=== PATIENT | male | born 1975 | race Caucasian/White ===

== ENCOUNTER 2023-10-03 06:47 | Inpatient (IN) | payer SELFPAY ==
[2023-10-03] VITALS (32 sets, daily range): BP systolic 102–185; BP diastolic 60–136; PULSE 77–138; RESP 12–51; TEMP 36.5–37.3; O2SAT 86–99; BMI 51.5; BMI 55.5
--- NOTE | 2023-10-03 07:07 | EKG12_ITS ---
Test Reason : SOB Blood Pressure : / mmHG Vent. Rate : 136 BPM Atrial Rate : 202 BPM P-R Int : 000 ms QRS Dur : 088 ms QT Int : 308 ms P-R-T Axes : 000 -06 050 degrees QTc Int : 463 ms AFIB Low voltage QRS Inferior infarct , age undetermined Cannot rule out Anterior infarct , age undetermined Abnormal ECG Confirmed by PHILOMENA RODRIGUEZ, LYNN ([id number]), deputy editor in chief ADE RAGLAND ([id number]) on 10/04/2023 8:18:46 AM Referred By: BUD Confirmed By:LYNN QUACH MD
[2023-10-03] MEDS: Albuterol 2.5 MG/3 ML VIAL.NEB. INHALATION (07:13)
[2023-10-03] MEDS: Ipratropium/Albuterol Sulfate 3 ML AMPUL.NEB INHALATION (07:13)
--- NOTE | 2023-10-03 07:25 | RAD_ITS ---
INDICATION: dyspnea EXAMINATION/TECHNIQUE: X-RAY - XR Chest 1 View AP portable. 7:20 AM COMPARISON: None. FINDINGS: LINES/DEVICES: None. LUNGS: Diffuse alveolar infiltrates throughout the lungs greater on the right. Small bilateral pleural effusions. No pneumothorax. MEDIASTINUM: Unremarkable. CARDIAC SILHOUETTE: Enlarged. BONES AND SOFT TISSUES: No acute abnormalities. RAD/Chest 1 View (Portable) IMPRESSION: Bilateral airspace disease and small pleural effusions, pulmonary edema versus pneumonia. Electronically Signed: Davida Mac MD at 7:54 EDT ,
--- NOTE | 2023-10-03 07:28 | ED.VIS.DYS ---
HPI History of Present Illness Chief Complaint: Shortness of Breath Informant: patient and EMS Narrative Narrative: 48-year-old male presenting to the emergency room chief complaint of dyspnea/respiratory failure. Patient typically does not wear oxygen at home. He notes progressive dyspnea over the past week. He he has been having difficulty obtaining medications and notes that he has been taking less of his diuretic than he should. He notes a cough with some whitish to clear sputum production. He denies any fevers but notes sweats and chills. He states he has fullness in his abdomen particularly in the epigastrium makes him feel like he might vomit but he will not. He notes lower extremity swelling worse than normal and is weeping. [facility] Medical History Afib CHF (congestive heart failure) COPD (chronic obstructive pulmonary disease) HTN (hypertension) Home Medications amiodarone 200 mg tablet 200 mg PO BID 10/03/23 [History Last Taken 10/02/23] apixaban 5 mg tablet (Eliquis) 5 mg PO BID blood thinner 10/03/23 [History Last Taken 10/02/23] atorvastatin 40 mg tablet 40 mg PO QHS 10/03/23 [History Last Taken 10/02/23] furosemide 40 mg tablet 40 mg PO BID 10/03/23 [History Last Taken 10/02/23] glimepiride 2 mg tablet 2 mg PO DAILY 10/03/23 [History Last Taken 10/02/23] losartan 25 mg tablet 25 mg PO DAILY 10/03/23 [History Last Taken 10/02/23] metoprolol succinate 25 mg tablet,extended release 24 hr 25 mg PO DAILY 10/03/23 [History Last Taken 10/02/23] spironolactone 25 mg tablet 12.5 mg PO DAILY 10/03/23 [History Last Taken 10/02/23] Allergy/AdvReac Type Severity Reaction Status Date / Time No Known Allergies Allergy Verified 10/03/23 06:49 Social History Smoking Status: Former smoker [facility] ED Constitutional Constitutional ED: Reports chills and sweats; Denies fever(s) or weight loss Eyes Eyes: Denies change in vision or diplopia ENT ENT ED: Denies ear pain, rhinorrhea or sore throat Cardiovascular Cardiovascular: Reports orthopnea, palpitations and racing heartbeat; Denies chest pain Respiratory/Chest Respiratory/Chest: Reports cough, dyspnea, dyspnea on exertion, orthopnea and sputum Gastrointestinal Gastrointestinal: Reports abdominal pain and nausea; Denies diarrhea or vomiting Genitourinary Genitourinary ED: Denies dysuria, hematuria or urinary frequency Musculoskeletal Musculoskeletal: Reports other Details: Lower extremity swelling and weeping ; Denies arthralgias, back pain or myalgias Integumentary Denies abscess or rash Neurologic Neurologic: Denies headache(s) or weakness Psychiatric Psychiatric: Denies anxiety, depression, suicidal ideation or suicidal thoughts Endocrine Endocrinology: Denies polydipsia, polyphagia or polyuria Allergic/Immunologic Allergic/Immunologic ED: Denies mouth swelling, tongue swelling or urticaria EXAM Physical Exam Const Vital Signs: 10/03/23 06:48 10/03/23 06:48 10/03/23 06:57 Temperature 97.7 F L 97.7 F L Temperature Source Axillary Axillary Pulse Rate 127 H 122 H Respiratory Rate 24 H 27 H Respiratory Effort Short of Breath Respiratory Depth Shallow Respiratory Pattern Tachypnea Blood Pressure 164/136 H 164/136 H Blood Pressure Mean 145 145 Blood Pressure Source Blood Pressure Position Blood Pressure Location Pulse Ox 88 94 Oxygen Delivery Method Room Air Room Air Nasal Cannula Oxygen Flow Rate (L/min) 3 Fraction of Inspired Oxygen (FIO2) 10/03/23 07:08 10/03/23 07:33 10/03/23 07:57 Temperature Temperature Source Pulse Rate 135 H Respiratory Rate 38 H Respiratory Effort Respiratory Depth Respiratory Pattern Blood Pressure 172/110 H 181/101 H Blood Pressure Mean 130 127 Blood Pressure Source Blood Pressure Position Sitting Blood Pressure Location Left Arm Pulse Ox 93 Oxygen Delivery Method Bi-pap Bi-pap Oxygen Flow Rate (L/min) Fraction of Inspired Oxygen (FIO2) 40 10/03/23 07:59 10/03/23 08:18 10/03/23 07:07 Temperature 98.3 F Temperature Source Axillary Pulse Rate 138 H 129 H Respiratory Rate 30 H 44 H Respiratory Effort Respiratory Depth Respiratory Pattern Blood Pressure 185/97 H 176/105 H Blood Pressure Mean 126 128 Blood Pressure Source Blood Pressure Position Semi-Fowlers Blood Pressure Location Left Arm Pulse Ox 90 Oxygen Delivery Method Bi-pap Oxygen Flow Rate (L/min) Fraction of Inspired Oxygen (FIO2) 45 50 10/03/23 07:15 10/03/23 07:59 10/03/23 08:00 Temperature Temperature Source Pulse Rate 138 H 136 H Respiratory Rate 46 H 51 H Respiratory Effort Respiratory Depth Respiratory Pattern Blood Pressure Blood Pressure Mean Blood Pressure Source Blood Pressure Position Blood Pressure Location Pulse Ox 93 Oxygen Delivery Method Oxygen Flow Rate (L/min) Fraction of Inspired Oxygen (FIO2) 40 45 10/03/23 08:57 10/03/23 09:00 10/03/23 09:28 Temperature Temperature Source Pulse Rate 112 H Respiratory Rate 50 H Respiratory Effort Respiratory Depth Respiratory Pattern Blood Pressure 159/118 H 172/99 H 167/98 H Blood Pressure Mean 131 123 121 Blood Pressure Source Blood Pressure Position Semi-Fowlers Semi-Fowlers Blood Pressure Location Left Arm Left Arm Pulse Ox 97 Oxygen Delivery Method Bi-pap Oxygen Flow Rate (L/min) Fraction of Inspired Oxygen (FIO2) 45 10/03/23 10:00 10/03/23 10:36 10/03/23 11:09 Temperature Temperature Source Pulse Rate 119 H 101 H Respiratory Rate 32 H 29 H Respiratory Effort Respiratory Depth Respiratory Pattern Blood Pressure 138/74 H 120/83 H 135/108 H Blood Pressure Mean 95 95 117 Blood Pressure Source Monitor Blood Pressure Position Sitting Blood Pressure Location Left Arm Left Arm Pulse Ox 94 90 Oxygen Delivery Method Bi-pap Nasal Cannula Oxygen Flow Rate (L/min) 6 Fraction of Inspired Oxygen (FIO2) 45 10/03/23 11:00 10/03/23 11:15 10/03/23 11:21 Temperature 98 F Temperature Source Pulse Rate 101 H 97 Respiratory Rate 37 H 39 H Respiratory Effort Respiratory Depth Respiratory Pattern Blood Pressure 135/108 H 102/60 102/60 Blood Pressure Mean 117 74 74 Blood Pressure Source Blood Pressure Position Sitting Blood Pressure Location Left Arm Pulse Ox 92 92 Oxygen Delivery Method Nasal Cannula Oxygen Flow Rate (L/min) 6 Fraction of Inspired Oxygen (FIO2) 10/03/23 12:00 Temperature Temperature Source Pulse Rate 92 Respiratory Rate 34 H Respiratory Effort Respiratory Depth Respiratory Pattern Blood Pressure 108/63 Blood Pressure Mean 78 Blood Pressure Source Blood Pressure Position Blood Pressure Location Pulse Ox 93 Oxygen Delivery Method Nasal Cannula Oxygen Flow Rate (L/min) 6 Fraction of Inspired Oxygen (FIO2) Positive well nourished, well developed and obese General Appearance ED: well developed Nutritional Appearance: obese HEENT Reports normocephalic, head/scalp atraumatic and moist mucous membranes Eyes PERRL and EOMs intact bilaterally Neck no lymphadenopathy, supple and no JVD Resp Resp Narrative: Patient is tachypneic with short shallow breaths using accessory muscles appears in a moderate amount of distress able to speak 3-4 word sentences Auscultation: rales and wheezes expiratory wheezes Cardio regular rate, regular rhythm and no murmurs Rate: tachycardic GI non-tender GI Narrative: Confident exam is limited by body habitus. Auscultation: normoactive bowel sounds Palpation: soft Back/Spine no CVA tenderness and normal ROM Extremity General Extremety ED: Yes edema General Extremity: edema bilateral lower extremity Details: severe Neuro oriented x3 and CN's II-XII intact bilaterally Sensorium / Orientation: alert Motor Exam: strength 5/5 throughout Psych Mood & Affect: anxious; Negative for depressed or tearful Skin no rashes or lesions noted Skin Narrative: Repeat in lower extremities MDM MDM MDM Narrative Medical decision making narrative: Patient initially placed on nasal cannula and transition to BiPAP due to his work of breathing. My independent or potation of the chest x-ray is pulmonary edema with cardiomegaly. White count 13.7 hemoglobin of 14.9 platelet count of 196 INR 1.3 with a PTT of 30.2 lactic acid 1.6 troponin is 16 BNP is 169.8 alk phos 155 potassium 4.1 with a creatinine 1.46. EKG initially is exceedingly hard to interpret and shows a narrow complex rhythm at a rate of 136. This was repeated when his breathing is better appears to show atrial fibrillation with a ventricular rate of 133 bpm. Second troponin is 25. Patient was profoundly hypertensive and was placed on nitroglycerin drip to help with blood pressure but also with venodilation. He also received a dose of Lasix. He has been persistently tachycardic so he was given Cardizem which slowed his heart rate down. We have been able to wean him off of BiPAP. He is having good urinary output. CT of the abdomen pelvis and CT of the chest does not demonstrate a pulmonary embolism. Pleural effusions noted as well as atelectatic and pulmonary edema changes. There is some possible gallbladder sludge but on clinical exam I cannot say that he is particularly tender in the right upper quadrant. He does have tissue texture changes in the subcutaneous tissue suggestive of fluid retention which on physical exam is consistent. ABG shows a pH of 7.34 with pCO2 of 53.6 PaO2 of 66.3 this is on 40% FiO2. HCO3 28.9. I will speak with the hospitalist regarding admission. The patient has been getting Eliquis from a friend. He believes he took it last night but not this morning. I think a lot of his findings today speak volumes to the difficulty in him getting his medications on an outpatient basis. History & Record Review Discussion w/independent historian: EMS personnel and Patient Lab Data Attestation: I reviewed the patient's lab results. Labs: Laboratory Results - last 24 hr 10/03/23 10/03/23 10/03/23 06:50 07:16 08:13 WBC 13.7 H RBC 5.64 Hgb 14.9 Hct 49.1 MCV 87.1 MCH 26.4 L MCHC 30.3 L RDW Std Deviation 49.2 H RDW Coeff of Darshan 15.6 H Plt Count 196 MPV 9.2 Immature Gran % (Auto) 0.600 Neut % (Auto) 91.3 H Lymph % (Auto) 2.8 L [place] % (Auto) 4.5 Eos % (Auto) 0.4 Baso % (Auto) 0.4 Absolute Neuts (auto) 12.5 H Absolute Lymphs (auto) 0.38 L Nucleated RBC % 0 PT 16.0 H INR 1.3 APTT 30.2 Sodium 136 Potassium 4.1 Chloride 104 Carbon Dioxide 28.0 Anion Gap 4 L BUN 21 H Creatinine 1.46 H Estim Creat Clear Calc 101.66 Est GFR (MDRD) Af Amer 66 Est GFR (MDRD) Non-Af 54 L BUN/Creatinine Ratio 14.4 Glucose 274 H Lactic Acid 1.6 Calcium 9.3 Total Bilirubin 1.40 H Direct Bilirubin 0.50 H AST 20 ALT 26 Alkaline Phosphatase 155 H Troponin I High Sens 16 B-Natriuretic Peptide 169.8 H Total Protein 8.1 Albumin 3.9 Globulin 4.2 Lipase 18 Urine Color Yellow Urine Clarity Clear Urine pH 6.0 Ur Specific [place] 1.020 Urine Protein 100 H Urine Glucose (UA) Normal Urine Ketones Negative Urine Occult Blood 50 H Urine Nitrite Negative Urine Bilirubin Negative Urine Urobilinogen Normal Ur Leukocyte Esterase Negative Urine RBC 0 SEEN Urine WBC 0 SEEN Ur Squamous Epith Cells 0 SEEN Urine Bacteria 0 SEEN Urine Mucus 0 SEEN 04/18/24 09:25 WBC RBC Hgb Hct MCV MCH MCHC RDW Std Deviation RDW Coeff of Darshan Plt Count MPV Immature Gran % (Auto) Neut % (Auto) Lymph % (Auto) [place] % (Auto) Eos % (Auto) Baso % (Auto) Absolute Neuts (auto) Absolute Lymphs (auto) Nucleated RBC % PT INR APTT Sodium Potassium Chloride Carbon Dioxide Anion Gap BUN Creatinine Estim Creat Clear Calc Est GFR (MDRD) Af Amer Est GFR (MDRD) Non-Af BUN/Creatinine Ratio Glucose Lactic Acid Calcium Total Bilirubin Direct Bilirubin AST ALT Alkaline Phosphatase Troponin I High Sens 25 B-Natriuretic Peptide Total Protein Albumin Globulin Lipase Urine Color Urine Clarity Urine pH Ur Specific [place] Urine Protein Urine Glucose (UA) Urine Ketones Urine Occult Blood Urine Nitrite Urine Bilirubin Urine Urobilinogen Ur Leukocyte Esterase Urine RBC Urine WBC Ur Squamous Epith Cells Urine Bacteria Urine Mucus ABG Data ABG results: ABG 10/03/23 07:48 Specimen Type ART Sample Site L BRACHIAL pH 7.34 L Bicarbonate Actual 28.9 H Total CO2 31 Base Excess 3 H O2 Saturation 91 L O2 % 40.0 ABG pCO2 53.6 H ABG pO2 66 L Flip Test NA O2 Delivery Device Bi Pap EPAP 8 IPAP 17 Radiography Diagnostic Testing: Clinical Impression(s) from Imaging Studies Chest X-Ray 10/03/23 07:25 IMPRESSION: Bilateral airspace disease and small pleural effusions, pulmonary edema versus pneumonia. Electronically Signed: Davida Mac MD at 7:54 EDT , Abdomen/Pelvis CT 10/03/23 10:02 IMPRESSION: Small bilateral pleural effusions with bibasilar infiltrates worse at the right lung base. Findings suggestive of sludge and gallstones within the gallbladder lumen. Increased markings in the subcutaneous fat as well as thickening of the skin overlying the abdominal wall. Fluid overload should be ruled out. 1.8 cm lymph node in the right inguinal region. Electronically Signed: Quinton Gonzalez MD at 10:43 EDT , Chest CTA 10/03/23 10:02 IMPRESSION: No evidence of pulmonary embolism. Bilateral pleural effusions with bibasilar infiltrates worse at the right lung base as well as pulmonary infiltrate in the posterior aspect of the right upper lobe abutting the right minor fissure. Possible superimposed CHF. Electronically Signed: Quinton Gonzalez MD at 10:46 EDT , EKG Initial EKG: Attestation: I personally reviewed and interpreted this EKG as follows: Comments: Narrow complex rhythm with difficult to interpret baseline. Ventricular rate of 136 bpm Follow-up EKG: Attestation: I personally reviewed and interpreted this EKG as follows: Comments: Atrial fibrillation/flutter with RVR ventricular rate of 133 bpm Management Discussion w/another healthcare provider: Hospitalist Critical Care Time Critical Care Time: Yes Critical care time (excluding procedures): 30-74 minutes (35 min), Including time spent:, Discussing w/Patient &/or Family/Gold Marker, Discussing w/Consultants, Arranging Admission or Transfer and Performing Direct Patient Care at Bedside Discharge Plan Dx/Rx/DC Orders Clinical Impression: Hypertensive urgency, Acute hypoxic respiratory failure, CHF (congestive heart failure), Atrial fibrillation with RVR Disposition Disposition: Acute Care Hospital [facility]
[2023-10-03] MEDS: Furosemide 100 MG/10 ML Vial 80 MG IV (07:41)
[2023-10-03 07:45] LABS: AST(SGOT) 20 U/L (15-37); Alanine Aminotransfer ALT/SGPT 26 U/L (16-61); Albumin, Serum 3.9 g/dL (3.2-5.0); Alkaline Phosphatase 155 U/L (45-117); Anion Gap 4 (5-15); BUN 21 mg/dL (7-18); BUN/Creat Ratio 14.4 RATIO (10-20); Calcium,Total 9.3 mg/dL (8.5-10.1); Chloride 104 mmol/L (98-107); Creatinine, Serum 1.46 mg/dL (0.70-1.30); EST Glomerular Filtration Rate 54 mL/min (>60); Est Glom Filt Rate - Afr Amer 66 mL/min (>60); Estimated Creatinine Clearance 101.66 ml/min; Globulin 4.2 g/dL (2.2-4.2); Glucose 274 mg/dL (74-106); Potassium 4.1 mmol/L (3.5-5.1); Protein, Total 8.1 g/dL (6.4-8.2); Sodium Level 136 mmol/L (136-145); Troponin-I HS (w/2H Reflex) 16 pg/mL (3.0-78.0)
[2023-10-03 07:48] LABS: Absolute Lymphocyte Count 0.38 X10^3/uL (0.83-4.51); Absolute Neutrophil Count 12.5 X10^3/uL (2.0-7.7); Basophil# 0.05 X10^3/uL; Basophil% 0.4 % (0-1); Eosinophil# 0.06 X10^3/uL; Eosinophils% 0.4 % (0-5); Hematocrit 49.1 % (40-54); Hemoglobin 14.9 g/dL (13.0-16.5); Lymphocyte # 0.38 X10^3/ul (0.83-4.51); Lymphocyte % 2.8 % (19-41); Mean Corp Hgb Conc 30.3 g/dL (32-36); Mean Corpuscular Hgb 26.4 pg (27.0-32.0); Mean Corpuscular Volume 87.1 fL (80-94); Mean Platelet Vol. 9.2 fl (6.2-12.0); Monocyte# 0.62 X10^3/uL; Monocyte% 4.5 % (0-10); NRBC Flagged by Analyzer 0 % (0-5); Neutrophil # 12.52 X10^3/uL (2.7-7.7); Neutrophil % 91.3 % (47-70); POSITIVE DIFFERENTIAL YES; Platelet Count 196 K/mm3 (150-450); RBC Distribution Width CV 15.6 % (11.6-14.6); RBC Distribution Width SD 49.2 fl (35.1-43.9); Red Blood Count 5.64 M/mm3 (4.6-6.2); White Blood Count 13.7 K/mm3 (4.4-11.0)
[2023-10-03 07:53] LABS: Differential Indicated SCAN CRITERIA MET
[2023-10-03] MEDS: Nitroglycerin Infusion 250 ML 3 MG CONT INF (07:57)
[2023-10-03 08:08] LABS: Lipase 18 U/L (13-75)
[2023-10-03 08:10] LABS: Lactic Acid 1.6 mmol/L (0.4-1.9)
[2023-10-03 08:21] LABS: Bacteria 0 SEEN /hpf (None Seen); Mucous, Urine 0 SEEN /hpf (<or=2+); Red Blood Cells-Urine 0 SEEN /hpf (0-5); Squamous Epithelial Cells - UA 0 SEEN /hpf (0-5); White Blood Cells 0 SEEN /hpf (0-5)
[2023-10-03 08:38] LABS: Blood Gas Specimen Type ART; O2 Delivery Device Bi Pap; SITE L BRACHIAL
[2023-10-03 08:39] LABS: Base Excess 3 mmol/L (-2 to +2); Bicarbonate 28.9 mmol/L (22-26); EPAP 8; IPAP 17; PO2 66 mmHG (75-100); SO2 91 % (95-99); Total Carbon Dioxide 31 mmol/L; pCO2 53.6 mmHg (35-45); pH 7.34 (7.35-7.45)
[2023-10-03 08:49] LABS: Color, Urine Yellow (Yellow); Glucose, Dipstick Normal (Normal); Ketone-Dipstick Negative (Negative); Leukocyte Esterase-Dipstick Negative /ul (Negative); Nitrite-Dipstick Negative (Negative); Occult Blood-Urine 50 /ul (Negative); Protein-Dipstick 100 mg/dl (Negative); Urine Bilirubin Dipstick Negative (Negative); Urine Clarity Clear (Clear); Urine Urobilinogen Normal (Normal)
[2023-10-03 09:16] LABS: Reflex Troponin-HS? (from REC) Y
--- NOTE | 2023-10-03 09:16 | EKG12_ITS ---
Test Reason : Blood Pressure : / mmHG Vent. Rate : 133 BPM Atrial Rate : 000 BPM P-R Int : 000 ms QRS Dur : 100 ms QT Int : 320 ms P-R-T Axes : 000 000 094 degrees QTc Int : 476 ms Atrial fibrillation with rapid ventricular response Possible Inferior infarct , age undetermined Abnormal ECG Confirmed by PHILOMENA RODRIGUEZ, LYNN ([id number]), newspaper editor ADE RAGLAND ([id number]) on 10/04/2023 8:18:57 AM Referred By: Confirmed By:LYNN QUACH MD
--- NOTE | 2023-10-03 09:23 | ED.RN ---
NO OLD EKG
[2023-10-03 09:37] LABS: BNP,B-Type NATRIURETIC PEPTIDE 169.8 pg/mL (0-100)
[2023-10-03 09:41] LABS: International Normalized Ratio 1.3
[2023-10-03 09:42] LABS: Partial Thromboplast Time 30.2 Seconds (24.1-36.2)
[2023-10-03 09:49] LABS: Troponin-I HS 25 pg/mL (3.0-78.0)
--- NOTE | 2023-10-03 10:02 | CT_ITS ---
STUDY: CTA CHEST REASON FOR EXAM: Male, 48 years old. Pulmonary embolism RADIATION DOSAGE (If Supplied By Facility): CTDIvol = ( 28.50 ) mGy, DLP = ( 2841.46 ) mGycm TECHNIQUE: The examination was performed with the intravenous administration of 100ML ISOVUE 370. Post-processing of the angiographic images was performed, with multiplanar reformation and 3D reconstruction. Individualized dose optimization techniques were used for this CT. COMPARISON: None. FINDINGS: Normal enhancement of the main pulmonary artery and right and left pulmonary arteries. Normal enhancement of the bilateral peripheral pulmonary arteries. There is no demonstrated pulmonary embolism. Normal thoracic aorta and visualized great vessels. There is no demonstrated aortic dissection. There is cardiomegaly. There are calcifications of the coronary arteries. Normal mediastinum. Normal hilar regions. Normal visualized trachea and bronchi. The lungs are well expanded. Bilateral pleural effusions with bibasilar infiltrates. Patchy infiltrate is also seen along the posterior aspect of the right upper lobe abutting the right minor fissure. There is evidence of an azygous lobe which is a normal variant. Normal chest wall structures. There are degenerative changes of thoracic spine. Normal visualized upper abdomen. CT/CTA Chest W/WO Contrast IMPRESSION: No evidence of pulmonary embolism. Bilateral pleural effusions with bibasilar infiltrates worse at the right lung base as well as pulmonary infiltrate in the posterior aspect of the right upper lobe abutting the right minor fissure. Possible superimposed CHF. Electronically Signed: Quinton Gonzalez MD at 10:46 EDT ,
--- NOTE | 2023-10-03 10:02 | CT_ITS ---
STUDY: CT ABDOMEN AND PELVIS WITH CONTRAST REASON FOR EXAM: Male, 48 years old. Abdominal pain RADIATION DOSAGE (If Supplied By Facility): CTDIvol = ( 28.50 ) mGy, DLP = ( 2841.46 ) mGycm TECHNIQUE: Transaxial images were obtained from the dome of the diaphragm to the symphysis pubis without oral contrast. 100ML ISOVUE 370 was administered. Sagittal and coronal images were reconstructed. Individualized dose optimization techniques were used for this CT. COMPARISON: None. FINDINGS: Small bilateral pleural effusions with bibasilar pulmonary infiltrates worse at the right lung base. Coronary artery calcification. Hepatomegaly. I suspect gallstones as well as sludge within the gallbladder lumen. Normal spleen. Normal pancreas. Normal bilateral adrenal glands. Normal right kidney. Normal left kidney. Normal visualized stomach. Normal small intestine. Normal colon. The appendix is visualized and appears normal. There is scattered atherosclerotic calcification of the abdominal aorta, without a demonstrated aneurysm. There is dilatation of the right common iliac artery measuring 1.8 cm in transverse dimension. Normal inferior vena cava. There is borderline retroperitoneal lymphadenopathy with enlarged nodes no greater than 10mm in the short axis diameter. There is a 1.8 cm right inguinal lymph node. Small benign-appearing inguinal lymph nodes are also visualized. A Nice catheter is seen within the urinary bladder. The urinary bladder is empty. Diffuse increased markings within the subcutaneous fat. This may represent fluid overload. Thickening of the skin overlying the abdominal wall . Straightening of the normal lumbar lordosis. Disc space narrowing and disc degeneration at the L5-S1 level. CT/Abdomen/Pelvis W IV Cont ONLY IMPRESSION: Small bilateral pleural effusions with bibasilar infiltrates worse at the right lung base. Findings suggestive of sludge and gallstones within the gallbladder lumen. Increased markings in the subcutaneous fat as well as thickening of the skin overlying the abdominal wall. Fluid overload should be ruled out. 1.8 cm lymph node in the right inguinal region. Electronically Signed: Quinton Gonzalez MD at 10:43 EDT ,
[2023-10-03] MEDS: dilTIAZem 25 MG/5 ML Vial 10 MG IV BOLUS (10:52)
[2023-10-03] MEDS: Diltiazem 125 MG in Dextrose 5%-Water (100mL Bag) 100 ML CONT INF (11:09)
[2023-10-03] MEDS: APIXABAN 5 MG TABLET PO ×2 (13:02→20:31)
--- NOTE | 2023-10-03 13:40 | ECHOCS_ITS ---
Reason For Study: Dyspnea/SOB Procedure This was a 2D Doppler, Color Flow transthoracic echocardiogram. Technically difficult study due to patients body habitus and positioning. Patient was scanned sitting upright due to SOB. Contrast injection was performed. Exam performed portable in patient room. Left Ventricle Normal LV size. The estimated ejection fraction is 35 %. Right Ventricle The right ventricle is not well visualized. Atria There is mild biatrial dilatation. Mitral Valve Normal mitral valve. There is no mitral valve stenosis. Tricuspid Valve Not well visualized. Aortic Valve The aortic valve is not well visualized in the short axis view. There is no aortic stenosis. Pulmonic Valve The pulmonic valve is not well visualized. Great Vessels Aortic root size upper limits of normal. Pericardium/Pleural No pericardial effusion. Medication Diluted definity 5ml given slow IV push to enhance endocardial definition. MMode/2D Measurements & Calculations Ao root diam: 4.0 cm LAV(MOD-bp): 77.9 ml LA dimension: 5.6 cm LA A4 area: 29.2 cm2 LAV(MOD-bp) Indexed: 26.4 ml/m2 LAV(MOD-sp2): 58.8 ml LAV(MOD-sp4): 103.5 ml Doppler Measurements & Calculations MV E max mirela: 112.0 cm/sec MV V2 max: 129.9 cm/sec Ao V2 max: 136.4 cm/sec MV max P.7 mmHg Ao max P.5 mmHg MV V2 mean: 66.0 cm/sec MV mean P.2 mmHg MV V2 VTI: 23.7 cm LV V1 max: 119.4 cm/sec PA V2 max: 82.3 cm/sec LV V1 max P.7 mmHg ECHO/Echo Complete W/ Contrast Interpretation Summary The estimated ejection fraction is 35 %. There is mild biatrial dilatation. The study was technically difficult. The study was technically limited. Contras t injection was performed. Ordering Physician: Ronnie Kumar Performed By: Dustin Marion RCS
[2023-10-03] MEDS: Furosemide 500 MG in Empty Viaflex 50 mL 1 EACH CONT INF (15:20)
[2023-10-03 16:01] LABS: Troponin-I HS 60 pg/mL (3.0-78.0)
--- NOTE | 2023-10-03 16:03 | HP.PCM.HOS_ITS ---
HPI - General General Date of Admission: 10/03/23 Date of Service: 10/03/23 Chief Complaint: Shortness of breath HPI Narrative LACHO BROCK, is a 48 M who presents presents with increased shortness of breath over the past week. Patient has a history of CHF and lymphedema and has degree increased lower extremity edema with seeping of fluid from his lower extremities. Chronically his left lower extremity is always more swollen than his right. Patient was in respiratory distress when he presented and was placed on BiPAP. Patient had recently encountered financial issues and the Eliquis that he is normally possibly on he has been getting through his father who [facility]. Has been taking other medications sporadically and trying to space those out. He does not weigh himself daily so he is unclear if he is put on recent weight. Patient did feel better and was able to tolerate being off BiPAP for period of time. [facility] Medical History Afib CHF (congestive heart failure) COPD (chronic obstructive pulmonary disease) HTN (hypertension) Home Medications amiodarone 200 mg tablet 200 mg PO BID 10/03/23 [History Last Taken 10/02/23] apixaban 5 mg tablet (Eliquis) 5 mg PO BID blood thinner 10/03/23 [History Last Taken 10/02/23] atorvastatin 40 mg tablet 40 mg PO QHS 10/03/23 [History Last Taken 10/02/23] furosemide 40 mg tablet 40 mg PO BID 10/03/23 [History Last Taken 10/02/23] glimepiride 2 mg tablet 2 mg PO DAILY 10/03/23 [History Last Taken 10/02/23] losartan 25 mg tablet 25 mg PO DAILY 10/03/23 [History Last Taken 10/02/23] metoprolol succinate 25 mg tablet,extended release 24 hr 25 mg PO DAILY 10/03/23 [History Last Taken 10/02/23] spironolactone 25 mg tablet 12.5 mg PO DAILY 10/03/23 [History Last Taken 10/02/23] Allergy/AdvReac Type Severity Reaction Status Date / Time No Known Allergies Allergy Verified 10/03/23 06:49 Family History (Updated 10/03/23 @ 16:[address] Ronnie Jopperi, DO) Other Heart disease Social History (Updated 10/03/23 @ 16:[address] Ronnie Kumar, DO) Smoking Status: Current every day smoker tobacco type: cigarettes alcohol intake: current alcohol intake frequency: a few times a month ROS ROS Narrative All review of systems were negative except as mentioned above in the history of present illness and the other review of systems. Vital Signs Vital Signs Vital Signs: 10/03/23 06:48 10/03/23 06:48 10/03/23 06:57 Temperature 36.5 C L 36.5 C L Temperature Source Axillary Axillary Pulse Rate 127 H 122 H Respiratory Rate 24 H 27 H Respiratory Effort Short of Breath Respiratory Depth Shallow Respiratory Pattern Tachypnea Blood Pressure 164/136 H 164/136 H Blood Pressure Mean 145 145 Blood Pressure Source Blood Pressure Position Blood Pressure Location Pulse Ox 88 94 Oxygen Delivery Method Room Air Room Air Nasal Cannula Oxygen Flow Rate (L/min) 3 Fraction of Inspired Oxygen (FIO2) 10/03/23 07:08 10/03/23 07:33 10/03/23 07:57 Temperature Temperature Source Pulse Rate 135 H Respiratory Rate 38 H Respiratory Effort Respiratory Depth Respiratory Pattern Blood Pressure 172/110 H 181/101 H Blood Pressure Mean 130 127 Blood Pressure Source Blood Pressure Position Sitting Blood Pressure Location Left Arm Pulse Ox 93 Oxygen Delivery Method Bi-pap Bi-pap Oxygen Flow Rate (L/min) Fraction of Inspired Oxygen (FIO2) 40 10/03/23 07:59 10/03/23 08:18 10/03/23 07:07 Temperature 36.8 C Temperature Source Axillary Pulse Rate 138 H 129 H Respiratory Rate 30 H 44 H Respiratory Effort Respiratory Depth Respiratory Pattern Blood Pressure 185/97 H 176/105 H Blood Pressure Mean 126 128 Blood Pressure Source Blood Pressure Position Semi-Fowlers Blood Pressure Location Left Arm Pulse Ox 90 Oxygen Delivery Method Bi-pap Oxygen Flow Rate (L/min) Fraction of Inspired Oxygen (FIO2) 45 50 10/03/23 07:15 10/03/23 07:59 10/03/23 08:00 Temperature Temperature Source Pulse Rate 138 H 136 H Respiratory Rate 46 H 51 H Respiratory Effort Respiratory Depth Respiratory Pattern Blood Pressure Blood Pressure Mean Blood Pressure Source Blood Pressure Position Blood Pressure Location Pulse Ox 93 Oxygen Delivery Method Oxygen Flow Rate (L/min) Fraction of Inspired Oxygen (FIO2) 40 45 10/03/23 08:57 10/03/23 09:00 10/03/23 09:28 Temperature Temperature Source Pulse Rate 112 H Respiratory Rate 50 H Respiratory Effort Respiratory Depth Respiratory Pattern Blood Pressure 159/118 H 172/99 H 167/98 H Blood Pressure Mean 131 123 121 Blood Pressure Source Blood Pressure Position Semi-Fowlers Semi-Fowlers Blood Pressure Location Left Arm Left Arm Pulse Ox 97 Oxygen Delivery Method Bi-pap Oxygen Flow Rate (L/min) Fraction of Inspired Oxygen (FIO2) 45 10/03/23 10:00 10/03/23 10:36 10/03/23 11:09 Temperature Temperature Source Pulse Rate 119 H 101 H Respiratory Rate 32 H 29 H Respiratory Effort Respiratory Depth Respiratory Pattern Blood Pressure 138/74 H 120/83 H 135/108 H Blood Pressure Mean 95 95 117 Blood Pressure Source Monitor Blood Pressure Position Sitting Blood Pressure Location Left Arm Left Arm Pulse Ox 94 90 Oxygen Delivery Method Bi-pap Nasal Cannula Oxygen Flow Rate (L/min) 6 Fraction of Inspired Oxygen (FIO2) 45 10/03/23 11:00 10/03/23 11:15 10/03/23 11:21 Temperature 36.6 C Temperature Source Pulse Rate 101 H 97 Respiratory Rate 37 H 39 H Respiratory Effort Respiratory Depth Respiratory Pattern Blood Pressure 135/108 H 102/60 102/60 Blood Pressure Mean 117 74 74 Blood Pressure Source Blood Pressure Position Sitting Blood Pressure Location Left Arm Pulse Ox 92 92 Oxygen Delivery Method Nasal Cannula Oxygen Flow Rate (L/min) 6 Fraction of Inspired Oxygen (FIO2) 10/03/23 12:00 10/03/23 13:00 10/03/23 14:11 Temperature 36.6 C Temperature Source Temporal Pulse Rate 92 94 98 Respiratory Rate 34 H 31 H 33 H Respiratory Effort Respiratory Depth Respiratory Pattern Blood Pressure 108/63 127/78 H 131/94 H Blood Pressure Mean 78 94 106 Blood Pressure Source Monitor Blood Pressure Position Semi-Fowlers Blood Pressure Location Left Arm Pulse Ox 93 92 Oxygen Delivery Method Nasal Cannula Nasal Cannula Bi-pap Oxygen Flow Rate (L/min) 6 6 Fraction of Inspired Oxygen (FIO2) 10/03/23 10:30 Temperature Temperature Source Pulse Rate Respiratory Rate Respiratory Effort Respiratory Depth Respiratory Pattern Blood Pressure Blood Pressure Mean Blood Pressure Source Blood Pressure Position Blood Pressure Location Pulse Ox 86 Oxygen Delivery Method Nasal Cannula Oxygen Flow Rate (L/min) 5 Fraction of Inspired Oxygen (FIO2) Weight Weight: 191.2 kg Body Mass Index (BMI) 55.5 Physical Exam Const alert Constitutional Narrative: Taken on BiPAP to 6 L nasal cannula. No respiratory distress. No conversational dyspnea. Appears older than stated age. Afebrile. HEENT normocephalic and head/scalp atraumatic Eyes Eyes Narrative: No icterus. Resp normal respiratory effort, no retractions, no use of accessory muscles and clear to auscultation bilaterally Cardio regular rate, regular rhythm, S1 normal heart sound and S2 normal heart sound GI normal to inspection, nondistended, normoactive bowel sounds, soft to palpation, non-tender and non-distended Extremity Extremity Narrative: Marked lymphedema bilaterally in lower extremities. Left is greater than the right. Does have a venous stasis ulcer posterior on the posterior calf without surrounding erythema. Neuro Sensorium / Orientation: awake and alert Psych affect normal Results Lab / Micro Data 10/03/23 06:50 10/03/23 06:50 Labs: Laboratory Results - last 24 hr 10/03/23 06:50: WBC 13.7 H, RBC 5.64, Hgb 14.9, Hct 49.1, MCV 87.1, MCH 26.4 L, MCHC 30.3 L, RDW Std Deviation 49.2 H, RDW Coeff of Darshan 15.6 H, Plt Count 196, MPV 9.2, Immature Gran % (Auto) 0.600, Neut % (Auto) 91.3 H, Lymph % (Auto) 2.8 L, [place] % (Auto) 4.5, Eos % (Auto) 0.4, Baso % (Auto) 0.4, Absolute Neuts (auto) 12.5 H, Absolute Lymphs (auto) 0.38 L, Nucleated RBC % 0, PT 16.0 H, INR 1.3, APTT 30.2, Sodium 136, Potassium 4.1, Chloride 104, Carbon Dioxide 28.0, Anion Gap 4 L, BUN 21 H, Creatinine 1.46 H, Estim Creat Clear Calc 101.66, Est GFR (MDRD) Af Amer 66, Est GFR (MDRD) Non-Af 54 L, BUN/Creatinine Ratio 14.4, Glucose 274 H, Calcium 9.3, Total Bilirubin 1.40 H, Direct Bilirubin 0.50 H, AST 20, ALT 26, Alkaline Phosphatase 155 H, Troponin I High Sens 16, B-Natriuretic Peptide 169.8 H, Total Protein 8.1, Albumin 3.9, Globulin 4.2, Lipase 18 10/03/23 07:16: Lactic Acid 1.6 10/03/23 08:13: Urine Color Yellow, Urine Clarity Clear, Urine pH 6.0, Ur Specific [place] 1.020, Urine Protein 100 H, Urine Glucose (UA) Normal, Urine Ketones Negative, Urine Occult Blood 50 H, Urine Nitrite Negative, Urine Bilirubin Negative, Urine Urobilinogen Normal, Ur Leukocyte Esterase Negative, Urine RBC 0 SEEN, Urine WBC 0 SEEN, Ur Squamous Epith Cells 0 SEEN, Urine Bacteria 0 SEEN, Urine Mucus 0 SEEN 10/03/23 09:25: Troponin I High Sens 25 10/03/23 15:28: Troponin I High Sens 60 Micro: Microbiology 10/03/23 07:45 Mucosa - Nose SARS-CoV-2, Influenza & RSV (PCR) - Final ABG Data ABG results: ABG 10/03/23 10/03/23 10/03/23 07:48 07:48 07:48 Specimen Type ART Cancelled Cancelled Sample Site L BRACHIAL pH Bicarbonate Actual Total CO2 Base Excess O2 Saturation O2 % ABG pCO2 ABG pO2 Flip Test Respiration Rate O2 Delivery Device Liter Flow Minute Volume Vent Mode Inspiratory Time Expiratory Time Tidal Volume Mean Airway Pressure POC PEEP Peak Inspir Pressure POC Pressure Suppt Pressure Control Pressure High Pressure Low Time High Time Low EPAP IPAP Blood Gas Comments Crit Call To/Read Back Blood Gas Notified Whom Blood Gas Notified Time Clinical Comments 10/03/23 10/03/23 10/03/23 07:48 07:48 07:48 Specimen Type Sample Site Cancelled Cancelled pH 7.34 L Cancelled Bicarbonate Actual Total CO2 Base Excess O2 Saturation O2 % ABG pCO2 ABG pO2 Flip Test Respiration Rate O2 Delivery Device Liter Flow Minute Volume Vent Mode Inspiratory Time Expiratory Time Tidal Volume Mean Airway Pressure POC PEEP Peak Inspir Pressure POC Pressure Suppt Pressure Control Pressure High Pressure Low Time High Time Low EPAP IPAP Blood Gas Comments Crit Call To/Read Back Blood Gas Notified Whom Blood Gas Notified Time Clinical Comments 10/03/23 10/03/23 10/03/23 07:48 07:48 07:48 Specimen Type Sample Site pH Cancelled Bicarbonate Actual 28.9 H Cancelled Cancelled Total CO2 31 Base Excess O2 Saturation O2 % ABG pCO2 ABG pO2 Flip Test Respiration Rate O2 Delivery Device Liter Flow Minute Volume Vent Mode Inspiratory Time Expiratory Time Tidal Volume Mean Airway Pressure POC PEEP Peak Inspir Pressure POC Pressure Suppt Pressure Control Pressure High Pressure Low Time High Time Low EPAP IPAP Blood Gas Comments Crit Call To/Read Back Blood Gas Notified Whom Blood Gas Notified Time Clinical Comments 10/03/23 10/03/23 10/03/23 07:48 07:48 07:48 Specimen Type Sample Site pH Bicarbonate Actual Total CO2 Cancelled Cancelled Base Excess 3 H Cancelled O2 Saturation O2 % ABG pCO2 ABG pO2 Flip Test Respiration Rate O2 Delivery Device Liter Flow Minute Volume Vent Mode Inspiratory Time Expiratory Time Tidal Volume Mean Airway Pressure POC PEEP Peak Inspir Pressure POC Pressure Suppt Pressure Control Pressure High Pressure Low Time High Time Low EPAP IPAP Blood Gas Comments Crit Call To/Read Back Blood Gas Notified Whom Blood Gas Notified Time Clinical Comments 10/03/23 10/03/23 10/03/23 07:48 07:48 07:48 Specimen Type Sample Site pH Bicarbonate Actual Total CO2 Base Excess Cancelled O2 Saturation 91 L Cancelled Cancelled O2 % 40.0 ABG pCO2 ABG pO2 Flip Test Respiration Rate O2 Delivery Device Liter Flow Minute Volume Vent Mode Inspiratory Time Expiratory Time Tidal Volume Mean Airway Pressure POC PEEP Peak Inspir Pressure POC Pressure Suppt Pressure Control Pressure High Pressure Low Time High Time Low EPAP IPAP Blood Gas Comments Crit Call To/Read Back Blood Gas Notified Whom Blood Gas Notified Time Clinical Comments 10/03/23 10/03/23 10/03/23 07:48 07:48 07:48 Specimen Type Sample Site pH Bicarbonate Actual Total CO2 Base Excess O2 Saturation O2 % Cancelled Cancelled ABG pCO2 53.6 H Cancelled ABG pO2 Flip Test Respiration Rate O2 Delivery Device Liter Flow Minute Volume Vent Mode Inspiratory Time Expiratory Time Tidal Volume Mean Airway Pressure POC PEEP Peak Inspir Pressure POC Pressure Suppt Pressure Control Pressure High Pressure Low Time High Time Low EPAP IPAP Blood Gas Comments Crit Call To/Read Back Blood Gas Notified Whom Blood Gas Notified Time Clinical Comments 10/03/23 10/03/23 10/03/23 07:48 07:48 07:48 Specimen Type Sample Site pH Bicarbonate Actual Total CO2 Base Excess O2 Saturation O2 % ABG pCO2 Cancelled ABG pO2 66 L Cancelled Cancelled Flip Test NA Respiration Rate O2 Delivery Device Liter Flow Minute Volume Vent Mode Inspiratory Time Expiratory Time Tidal Volume Mean Airway Pressure POC PEEP Peak Inspir Pressure POC Pressure Suppt Pressure Control Pressure High Pressure Low Time High Time Low EPAP IPAP Blood Gas Comments Crit Call To/Read Back Blood Gas Notified Whom Blood Gas Notified Time Clinical Comments 10/03/23 10/03/23 10/03/23 07:48 07:48 07:48 Specimen Type Sample Site pH Bicarbonate Actual Total CO2 Base Excess O2 Saturation O2 % ABG pCO2 ABG pO2 Flip Test Cancelled Cancelled Respiration Rate Cancelled Cancelled O2 Delivery Device Bi Pap Liter Flow Minute Volume Vent Mode Inspiratory Time Expiratory Time Tidal Volume Mean Airway Pressure POC PEEP Peak Inspir Pressure POC Pressure Suppt Pressure Control Pressure High Pressure Low Time High Time Low EPAP IPAP Blood Gas Comments Crit Call To/Read Back Blood Gas Notified Whom Blood Gas Notified Time Clinical Comments 10/03/23 10/03/23 10/03/23 07:48 07:48 07:48 Specimen Type Sample Site pH Bicarbonate Actual Total CO2 Base Excess O2 Saturation O2 % ABG pCO2 ABG pO2 Flip Test Respiration Rate O2 Delivery Device Cancelled Cancelled Liter Flow Cancelled Cancelled Minute Volume Cancelled Vent Mode Inspiratory Time Expiratory Time Tidal Volume Mean Airway Pressure POC PEEP Peak Inspir Pressure POC Pressure Suppt Pressure Control Pressure High Pressure Low Time High Time Low EPAP IPAP Blood Gas Comments Crit Call To/Read Back Blood Gas Notified Whom Blood Gas Notified Time Clinical Comments 10/03/23 10/03/23 10/03/23 07:48 07:48 07:48 Specimen Type Sample Site pH Bicarbonate Actual Total CO2 Base Excess O2 Saturation O2 % ABG pCO2 ABG pO2 Flip Test Respiration Rate O2 Delivery Device Liter Flow Minute Volume Cancelled Vent Mode Cancelled Cancelled Inspiratory Time Cancelled Cancelled Expiratory Time Cancelled Tidal Volume Mean Airway Pressure POC PEEP Peak Inspir Pressure POC Pressure Suppt Pressure Control Pressure High Pressure Low Time High Time Low EPAP IPAP Blood Gas Comments Crit Call To/Read Back Blood Gas Notified Whom Blood Gas Notified Time Clinical Comments 10/03/23 10/03/23 10/03/23 07:48 07:48 07:48 Specimen Type Sample Site pH Bicarbonate Actual Total CO2 Base Excess O2 Saturation O2 % ABG pCO2 ABG pO2 Flip Test Respiration Rate O2 Delivery Device Liter Flow Minute Volume Vent Mode Inspiratory Time Expiratory Time Cancelled Tidal Volume Cancelled Cancelled Mean Airway Pressure Cancelled Cancelled POC PEEP Cancelled Peak Inspir Pressure POC Pressure Suppt Pressure Control Pressure High Pressure Low Time High Time Low EPAP IPAP Blood Gas Comments Crit Call To/Read Back Blood Gas Notified Whom Blood Gas Notified Time Clinical Comments 10/03/23 10/03/23 10/03/23 07:48 07:48 07:48 Specimen Type Sample Site pH Bicarbonate Actual Total CO2 Base Excess O2 Saturation O2 % ABG pCO2 ABG pO2 Flip Test Respiration Rate O2 Delivery Device Liter Flow Minute Volume Vent Mode Inspiratory Time Expiratory Time Tidal Volume Mean Airway Pressure POC PEEP Cancelled Peak Inspir Pressure Cancelled Cancelled POC Pressure Suppt Cancelled Cancelled Pressure Control Cancelled Pressure High Pressure Low Time High Time Low EPAP IPAP Blood Gas Comments Crit Call To/Read Back Blood Gas Notified Whom Blood Gas Notified Time Clinical Comments 10/03/23 10/03/23 10/03/23 07:48 07:48 07:48 Specimen Type Sample Site pH Bicarbonate Actual Total CO2 Base Excess O2 Saturation O2 % ABG pCO2 ABG pO2 Flip Test Respiration Rate O2 Delivery Device Liter Flow Minute Volume Vent Mode Inspiratory Time Expiratory Time Tidal Volume Mean Airway Pressure POC PEEP Peak Inspir Pressure POC Pressure Suppt Pressure Control Cancelled Pressure High Cancelled Cancelled Pressure Low Cancelled Cancelled Time High Cancelled Time Low EPAP IPAP Blood Gas Comments Crit Call To/Read Back Blood Gas Notified Whom Blood Gas Notified Time Clinical Comments 10/03/23 10/03/23 10/03/23 07:48 07:48 07:48 Specimen Type Sample Site pH Bicarbonate Actual Total CO2 Base Excess O2 Saturation O2 % ABG pCO2 ABG pO2 Flip Test Respiration Rate O2 Delivery Device Liter Flow Minute Volume Vent Mode Inspiratory Time Expiratory Time Tidal Volume Mean Airway Pressure POC PEEP Peak Inspir Pressure POC Pressure Suppt Pressure Control Pressure High Pressure Low Time High Cancelled Time Low Cancelled Cancelled EPAP 8 Cancelled IPAP Blood Gas Comments Crit Call To/Read Back Blood Gas Notified Whom Blood Gas Notified Time Clinical Comments 10/03/23 10/03/23 10/03/23 07:48 07:48 07:48 Specimen Type Sample Site pH Bicarbonate Actual Total CO2 Base Excess O2 Saturation O2 % ABG pCO2 ABG pO2 Flip Test Respiration Rate O2 Delivery Device Liter Flow Minute Volume Vent Mode Inspiratory Time Expiratory Time Tidal Volume Mean Airway Pressure POC PEEP Peak Inspir Pressure POC Pressure Suppt Pressure Control Pressure High Pressure Low Time High Time Low EPAP Cancelled IPAP 17 Cancelled Cancelled Blood Gas Comments Cancelled Crit Call To/Read Back Blood Gas Notified Whom Blood Gas Notified Time Clinical Comments 10/03/23 10/03/23 10/03/23 07:48 07:48 07:48 Specimen Type Sample Site pH Bicarbonate Actual Total CO2 Base Excess O2 Saturation O2 % ABG pCO2 ABG pO2 Flip Test Respiration Rate O2 Delivery Device Liter Flow Minute Volume Vent Mode Inspiratory Time Expiratory Time Tidal Volume Mean Airway Pressure POC PEEP Peak Inspir Pressure POC Pressure Suppt Pressure Control Pressure High Pressure Low Time High Time Low EPAP IPAP Blood Gas Comments Cancelled Crit Call To/Read Back Cancelled Cancelled Blood Gas Notified Whom Cancelled Cancelled Blood Gas Notified Time Cancelled Clinical Comments 10/03/23 10/03/23 07:48 07:48 Specimen Type Sample Site pH Bicarbonate Actual Total CO2 Base Excess O2 Saturation O2 % ABG pCO2 ABG pO2 Flip Test Respiration Rate O2 Delivery Device Liter Flow Minute Volume Vent Mode Inspiratory Time Expiratory Time Tidal Volume Mean Airway Pressure POC PEEP Peak Inspir Pressure POC Pressure Suppt Pressure Control Pressure High Pressure Low Time High Time Low EPAP IPAP Blood Gas Comments Crit Call To/Read Back Blood Gas Notified Whom Blood Gas Notified Time Cancelled Clinical Comments Cancelled Cancelled Imaging Radiology Impression Chest X-Ray 10/03/23 07:25 IMPRESSION: Bilateral airspace disease and small pleural effusions, pulmonary edema versus pneumonia. Electronically Signed: Davida Mac MD at 7:54 EDT , Abdomen/Pelvis CT 10/03/23 10:02 IMPRESSION: Small bilateral pleural effusions with bibasilar infiltrates worse at the right lung base. Findings suggestive of sludge and gallstones within the gallbladder lumen. Increased markings in the subcutaneous fat as well as thickening of the skin overlying the abdominal wall. Fluid overload should be ruled out. 1.8 cm lymph node in the right inguinal region. Electronically Signed: Quinton Gonzalez MD at 10:43 EDT , Chest CTA 10/03/23 10:02 IMPRESSION: No evidence of pulmonary embolism. Bilateral pleural effusions with bibasilar infiltrates worse at the right lung base as well as pulmonary infiltrate in the posterior aspect of the right upper lobe abutting the right minor fissure. Possible superimposed CHF. Electronically Signed: Quinton Gonzalez MD at 10:46 EDT , Assessment & Plan Assessment/Plan (1) CHF (congestive heart failure): (2) Atrial fibrillation with RVR: PLAN: Plan Acute heart failure with suspected preserved ejection fraction * Patient received IV furosemide in the ED. Will initiate furosemide drip. * Continue with spironolactone, continue with losartan and metoprolol * Check an echo Atrial fibrillation with RVR * Likely exacerbated due to the CHF exacerbation * Was started on diltiazem drip. Heart rate seems to be improved. * Continue with amiodarone as well as metoprolol * Will initiate metoprolol tartrate and have as needed IV metoprolol. DC diltiazem drip and observe. * Already anticoagulated on atrial fibrillation Acute hypoxic and hypercapnic respiratory failure * Wean BiPAP as able. * Patient requires volume ventilation and all other alternative therapies, including bilevel, have been considered and ruled out due to the severity of the disease state, weak breathing muscles and potential life-threatening condition including CO2 retention probability of acute exacerbation, patient requires ventilation to be used during the day as needed, addition to every night usage with facemask. Chronic conditions * Morbid obesity * Hyperlipidemia: Continue statin * Diabetes mellitus type 2: Sliding scale insulin VTE prophylaxis: Not indicated as patient is already anticoagulated. Charges/Coding Visit Charges Inpatient E&M: 41105 Init Hosp L3
[2023-10-03 17:46] LABS: Troponin-I HS 62 pg/mL (3.0-78.0)
[2023-10-03] MEDS: Metoprolol Tartrate 25 MG Tablet PO ×2 (18:13→20:31)
[2023-10-03] MEDS: Insulin Lispro 100 UNIT/ML INSULN.PEN SC (18:18)
[2023-10-03 18:32] LABS: Bedside Glucose 267 mg/dL (74-106)
[2023-10-03] MEDS: Atorvastatin Calcium 40 MG Tablet PO (20:31)
[2023-10-03] MEDS: Amiodarone 200 MG Tablet PO (20:31)
[2023-10-03] MEDS: Acetaminophen 325 MG Tablet 650 MG PO (20:46)
[2023-10-03 22:05] LABS: Troponin-I HS 62 pg/mL (3.0-78.0)
[2023-10-03] MEDS: Ceftriaxone 1 GM/50 ML BAG IV (23:19)
[2023-10-04] VITALS (15 sets, daily range): BP systolic 87–157; BP diastolic 58–97; PULSE 76–110; RESP 12–32; TEMP 36.1–37.2; O2SAT 85–100; BMI 55.5
--- NOTE | 2023-10-04 00:35 | PCM.PN.BLA ---
Progress Note 4-4 blood cultures with gram-positive cocci in chains, she does have venous stasis ulcer with surrounding erythema therefore we will start her on IV Rocephin and recheck blood cultures in the morning
[2023-10-04] MEDS: Ceftriaxone 1 GM/50 ML BAG IV ×2 (03:00→21:31)
[2023-10-04 07:16] LABS: Bedside Glucose 144 mg/dL (74-106)
--- NOTE | 2023-10-04 07:58 | PCM.PN.HOSP ---
Reason for Visit Reason for Visit: Diagnoses Unspecified atrial fibrillation (10/03/23) Heart failure, unspecified (10/03/23) Subjective Subjective Feeling better. Objective Data Objective Data Vital Signs: Vital Signs Temp Pulse Resp BP Pulse Ox O2 Del Method O2 Flow Rate 37.2 C 78 32 H 133/73 H 94 Room Air 2 10/04/23 02:30 10/04/23 05:32 10/04/23 05:32 10/04/23 02:30 10/04/23 06:22 10/04/23 06:22 10/03/23 20:33 FiO2 45 10/04/23 05:32 Oxygen Flow Rate (L/min) 2 Oxygen Delivery Method Room Air Weight: 190.9 kg Body Mass Index (BMI) 55.5 Intake & Output: Intake and Output for Last 24 Hours 10/02/23 10/03/23 10/04/23 23:59 23:59 23:59 Intake Total 862.32 / 1062.32 250 / 250 Output Total 2425 / 2700 925 / 925 Balance -1562.68 / -1637.68 -675 / -675 Lab / Micro Data 10/04/23 09:35 10/04/23 09:35 Labs: Laboratory Results - last 24 hr 10/03/23 06:50: PT 16.0 H, INR 1.3, APTT 30.2, B-Natriuretic Peptide 169.8 H, Lipase 18 10/03/23 07:16: Lactic Acid 1.6 10/03/23 08:13: Urine Color Yellow, Urine Clarity Clear, Urine pH 6.0, Ur Specific [place] 1.020, Urine Protein 100 H, Urine Glucose (UA) Normal, Urine Ketones Negative, Urine Occult Blood 50 H, Urine Nitrite Negative, Urine Bilirubin Negative, Urine Urobilinogen Normal, Ur Leukocyte Esterase Negative, Urine RBC 0 SEEN, Urine WBC 0 SEEN, Ur Squamous Epith Cells 0 SEEN, Urine Bacteria 0 SEEN, Urine Mucus 0 SEEN 10/03/23 09:25: Troponin I High Sens 25 10/03/23 15:28: Troponin I High Sens 60 10/03/23 17:16: Troponin I High Sens 62 10/03/23 18:11: POC Glucose 267 H 10/03/23 21:36: Troponin I High Sens 62 10/04/23 06:45: POC Glucose 144 H Micro: Microbiology 10/03/23 07:28 Blood Culture (Wb) - Anticubital Right Bacteria Detection (PCR) - Preliminary Strep not Strep pneumo 10/03/23 07:28 Blood Culture (Wb) - Anticubital Right Blood Culture - Preliminary 10/03/23 07:16 Blood Culture (Wb) - Anticubital Left Blood Culture - Preliminary 10/03/23 07:45 Mucosa - Nose SARS-CoV-2, Influenza & RSV (PCR) - Final ABG Data ABG results: ABG 10/03/23 10/03/23 10/03/23 07:48 07:48 07:48 Specimen Type ART Cancelled Cancelled Sample Site L BRACHIAL pH Bicarbonate Actual Total CO2 Base Excess O2 Saturation O2 % ABG pCO2 ABG pO2 Flip Test Respiration Rate O2 Delivery Device Liter Flow Minute Volume Vent Mode Inspiratory Time Expiratory Time Tidal Volume Mean Airway Pressure POC PEEP Peak Inspir Pressure POC Pressure Suppt Pressure Control Pressure High Pressure Low Time High Time Low EPAP IPAP Blood Gas Comments Crit Call To/Read Back Blood Gas Notified Whom Blood Gas Notified Time Clinical Comments 10/03/23 10/03/23 10/03/23 07:48 07:48 07:48 Specimen Type Sample Site Cancelled Cancelled pH 7.34 L Cancelled Bicarbonate Actual Total CO2 Base Excess O2 Saturation O2 % ABG pCO2 ABG pO2 Flip Test Respiration Rate O2 Delivery Device Liter Flow Minute Volume Vent Mode Inspiratory Time Expiratory Time Tidal Volume Mean Airway Pressure POC PEEP Peak Inspir Pressure POC Pressure Suppt Pressure Control Pressure High Pressure Low Time High Time Low EPAP IPAP Blood Gas Comments Crit Call To/Read Back Blood Gas Notified Whom Blood Gas Notified Time Clinical Comments 10/03/23 10/03/23 10/03/23 07:48 07:48 07:48 Specimen Type Sample Site pH Cancelled Bicarbonate Actual 28.9 H Cancelled Cancelled Total CO2 31 Base Excess O2 Saturation O2 % ABG pCO2 ABG pO2 Flip Test Respiration Rate O2 Delivery Device Liter Flow Minute Volume Vent Mode Inspiratory Time Expiratory Time Tidal Volume Mean Airway Pressure POC PEEP Peak Inspir Pressure POC Pressure Suppt Pressure Control Pressure High Pressure Low Time High Time Low EPAP IPAP Blood Gas Comments Crit Call To/Read Back Blood Gas Notified Whom Blood Gas Notified Time Clinical Comments 04/18/24 04/18/24 04/18/24 07:48 07:48 07:48 Specimen Type Sample Site pH Bicarbonate Actual Total CO2 Cancelled Cancelled Base Excess 3 H Cancelled O2 Saturation O2 % ABG pCO2 ABG pO2 Flip Test Respiration Rate O2 Delivery Device Liter Flow Minute Volume Vent Mode Inspiratory Time Expiratory Time Tidal Volume Mean Airway Pressure POC PEEP Peak Inspir Pressure POC Pressure Suppt Pressure Control Pressure High Pressure Low Time High Time Low EPAP IPAP Blood Gas Comments Crit Call To/Read Back Blood Gas Notified Whom Blood Gas Notified Time Clinical Comments 10/03/23 10/03/23 10/03/23 07:48 07:48 07:48 Specimen Type Sample Site pH Bicarbonate Actual Total CO2 Base Excess Cancelled O2 Saturation 91 L Cancelled Cancelled O2 % 40.0 ABG pCO2 ABG pO2 Flip Test Respiration Rate O2 Delivery Device Liter Flow Minute Volume Vent Mode Inspiratory Time Expiratory Time Tidal Volume Mean Airway Pressure POC PEEP Peak Inspir Pressure POC Pressure Suppt Pressure Control Pressure High Pressure Low Time High Time Low EPAP IPAP Blood Gas Comments Crit Call To/Read Back Blood Gas Notified Whom Blood Gas Notified Time Clinical Comments 10/03/23 10/03/23 10/03/23 07:48 07:48 07:48 Specimen Type Sample Site pH Bicarbonate Actual Total CO2 Base Excess O2 Saturation O2 % Cancelled Cancelled ABG pCO2 53.6 H Cancelled ABG pO2 Flip Test Respiration Rate O2 Delivery Device Liter Flow Minute Volume Vent Mode Inspiratory Time Expiratory Time Tidal Volume Mean Airway Pressure POC PEEP Peak Inspir Pressure POC Pressure Suppt Pressure Control Pressure High Pressure Low Time High Time Low EPAP IPAP Blood Gas Comments Crit Call To/Read Back Blood Gas Notified Whom Blood Gas Notified Time Clinical Comments 10/03/23 10/03/23 10/03/23 07:48 07:48 07:48 Specimen Type Sample Site pH Bicarbonate Actual Total CO2 Base Excess O2 Saturation O2 % ABG pCO2 Cancelled ABG pO2 66 L Cancelled Cancelled Flip Test NA Respiration Rate O2 Delivery Device Liter Flow Minute Volume Vent Mode Inspiratory Time Expiratory Time Tidal Volume Mean Airway Pressure POC PEEP Peak Inspir Pressure POC Pressure Suppt Pressure Control Pressure High Pressure Low Time High Time Low EPAP IPAP Blood Gas Comments Crit Call To/Read Back Blood Gas Notified Whom Blood Gas Notified Time Clinical Comments 10/03/23 10/03/23 10/03/23 07:48 07:48 07:48 Specimen Type Sample Site pH Bicarbonate Actual Total CO2 Base Excess O2 Saturation O2 % ABG pCO2 ABG pO2 Flip Test Cancelled Cancelled Respiration Rate Cancelled Cancelled O2 Delivery Device Bi Pap Liter Flow Minute Volume Vent Mode Inspiratory Time Expiratory Time Tidal Volume Mean Airway Pressure POC PEEP Peak Inspir Pressure POC Pressure Suppt Pressure Control Pressure High Pressure Low Time High Time Low EPAP IPAP Blood Gas Comments Crit Call To/Read Back Blood Gas Notified Whom Blood Gas Notified Time Clinical Comments 10/03/23 10/03/23 10/03/23 07:48 07:48 07:48 Specimen Type Sample Site pH Bicarbonate Actual Total CO2 Base Excess O2 Saturation O2 % ABG pCO2 ABG pO2 Flip Test Respiration Rate O2 Delivery Device Cancelled Cancelled Liter Flow Cancelled Cancelled Minute Volume Cancelled Vent Mode Inspiratory Time Expiratory Time Tidal Volume Mean Airway Pressure POC PEEP Peak Inspir Pressure POC Pressure Suppt Pressure Control Pressure High Pressure Low Time High Time Low EPAP IPAP Blood Gas Comments Crit Call To/Read Back Blood Gas Notified Whom Blood Gas Notified Time Clinical Comments 10/03/23 10/03/23 10/03/23 07:48 07:48 07:48 Specimen Type Sample Site pH Bicarbonate Actual Total CO2 Base Excess O2 Saturation O2 % ABG pCO2 ABG pO2 Flip Test Respiration Rate O2 Delivery Device Liter Flow Minute Volume Cancelled Vent Mode Cancelled Cancelled Inspiratory Time Cancelled Cancelled Expiratory Time Cancelled Tidal Volume Mean Airway Pressure POC PEEP Peak Inspir Pressure POC Pressure Suppt Pressure Control Pressure High Pressure Low Time High Time Low EPAP IPAP Blood Gas Comments Crit Call To/Read Back Blood Gas Notified Whom Blood Gas Notified Time Clinical Comments 10/03/23 10/03/23 10/03/23 07:48 07:48 07:48 Specimen Type Sample Site pH Bicarbonate Actual Total CO2 Base Excess O2 Saturation O2 % ABG pCO2 ABG pO2 Flip Test Respiration Rate O2 Delivery Device Liter Flow Minute Volume Vent Mode Inspiratory Time Expiratory Time Cancelled Tidal Volume Cancelled Cancelled Mean Airway Pressure Cancelled Cancelled POC PEEP Cancelled Peak Inspir Pressure POC Pressure Suppt Pressure Control Pressure High Pressure Low Time High Time Low EPAP IPAP Blood Gas Comments Crit Call To/Read Back Blood Gas Notified Whom Blood Gas Notified Time Clinical Comments 10/03/23 10/03/23 10/03/23 07:48 07:48 07:48 Specimen Type Sample Site pH Bicarbonate Actual Total CO2 Base Excess O2 Saturation O2 % ABG pCO2 ABG pO2 Flip Test Respiration Rate O2 Delivery Device Liter Flow Minute Volume Vent Mode Inspiratory Time Expiratory Time Tidal Volume Mean Airway Pressure POC PEEP Cancelled Peak Inspir Pressure Cancelled Cancelled POC Pressure Suppt Cancelled Cancelled Pressure Control Cancelled Pressure High Pressure Low Time High Time Low EPAP IPAP Blood Gas Comments Crit Call To/Read Back Blood Gas Notified Whom Blood Gas Notified Time Clinical Comments 10/03/23 10/03/23 10/03/23 07:48 07:48 07:48 Specimen Type Sample Site pH Bicarbonate Actual Total CO2 Base Excess O2 Saturation O2 % ABG pCO2 ABG pO2 Flip Test Respiration Rate O2 Delivery Device Liter Flow Minute Volume Vent Mode Inspiratory Time Expiratory Time Tidal Volume Mean Airway Pressure POC PEEP Peak Inspir Pressure POC Pressure Suppt Pressure Control Cancelled Pressure High Cancelled Cancelled Pressure Low Cancelled Cancelled Time High Cancelled Time Low EPAP IPAP Blood Gas Comments Crit Call To/Read Back Blood Gas Notified Whom Blood Gas Notified Time Clinical Comments 10/03/23 10/03/23 10/03/23 07:48 07:48 07:48 Specimen Type Sample Site pH Bicarbonate Actual Total CO2 Base Excess O2 Saturation O2 % ABG pCO2 ABG pO2 Flip Test Respiration Rate O2 Delivery Device Liter Flow Minute Volume Vent Mode Inspiratory Time Expiratory Time Tidal Volume Mean Airway Pressure POC PEEP Peak Inspir Pressure POC Pressure Suppt Pressure Control Pressure High Pressure Low Time High Cancelled Time Low Cancelled Cancelled EPAP 8 Cancelled IPAP Blood Gas Comments Crit Call To/Read Back Blood Gas Notified Whom Blood Gas Notified Time Clinical Comments 10/03/23 10/03/23 10/03/23 07:48 07:48 07:48 Specimen Type Sample Site pH Bicarbonate Actual Total CO2 Base Excess O2 Saturation O2 % ABG pCO2 ABG pO2 Flip Test Respiration Rate O2 Delivery Device Liter Flow Minute Volume Vent Mode Inspiratory Time Expiratory Time Tidal Volume Mean Airway Pressure POC PEEP Peak Inspir Pressure POC Pressure Suppt Pressure Control Pressure High Pressure Low Time High Time Low EPAP Cancelled IPAP 17 Cancelled Cancelled Blood Gas Comments Cancelled Crit Call To/Read Back Blood Gas Notified Whom Blood Gas Notified Time Clinical Comments 10/03/23 10/03/23 10/03/23 07:48 07:48 07:48 Specimen Type Sample Site pH Bicarbonate Actual Total CO2 Base Excess O2 Saturation O2 % ABG pCO2 ABG pO2 Flip Test Respiration Rate O2 Delivery Device Liter Flow Minute Volume Vent Mode Inspiratory Time Expiratory Time Tidal Volume Mean Airway Pressure POC PEEP Peak Inspir Pressure POC Pressure Suppt Pressure Control Pressure High Pressure Low Time High Time Low EPAP IPAP Blood Gas Comments Cancelled Crit Call To/Read Back Cancelled Cancelled Blood Gas Notified Whom Cancelled Cancelled Blood Gas Notified Time Cancelled Clinical Comments 10/03/23 10/03/23 07:48 07:48 Specimen Type Sample Site pH Bicarbonate Actual Total CO2 Base Excess O2 Saturation O2 % ABG pCO2 ABG pO2 Flip Test Respiration Rate O2 Delivery Device Liter Flow Minute Volume Vent Mode Inspiratory Time Expiratory Time Tidal Volume Mean Airway Pressure POC PEEP Peak Inspir Pressure POC Pressure Suppt Pressure Control Pressure High Pressure Low Time High Time Low EPAP IPAP Blood Gas Comments Crit Call To/Read Back Blood Gas Notified Whom Blood Gas Notified Time Cancelled Clinical Comments Cancelled Cancelled Radiography Diagnostic Testing: Radiology Impression Abdomen/Pelvis CT 10/03/23 10:02 IMPRESSION: Small bilateral pleural effusions with bibasilar infiltrates worse at the right lung base. Findings suggestive of sludge and gallstones within the gallbladder lumen. Increased markings in the subcutaneous fat as well as thickening of the skin overlying the abdominal wall. Fluid overload should be ruled out. 1.8 cm lymph node in the right inguinal region. Electronically Signed: Quinton Gonzalez MD at 10:43 EDT , Chest CTA 10/03/23 10:02 IMPRESSION: No evidence of pulmonary embolism. Bilateral pleural effusions with bibasilar infiltrates worse at the right lung base as well as pulmonary infiltrate in the posterior aspect of the right upper lobe abutting the right minor fissure. Possible superimposed CHF. Electronically Signed: Quinton Gonzalez MD at 10:46 EDT , Physical Exam Const alert and no apparent distress HEENT head/scalp atraumatic and moist oral mucous membranes Resp normal respiratory effort, no retractions, no use of accessory muscles and clear to auscultation bilaterally Cardio regular rate, regular rhythm, S1 normal heart sound and S2 normal heart sound GI normal to inspection, nondistended, normoactive bowel sounds, soft to palpation, non-tender and non-distended GI Narrative: Large pannus with edema Extremity Extremity Narrative: Bilateral lower extremities wrapped. Neuro moves all extremities Sensorium / Orientation: awake and alert Psych affect normal Assessment & Plan Assessment/Plan (1) CHF (congestive heart failure): (2) Atrial fibrillation with RVR: PLAN: Plan Acute heart failure with suspected preserved ejection fraction Patient received IV furosemide in the ED. continue furosemide drip. No baseline creatinine but creatinine has gone from 1.4-1.7. Given the large volume of edema, will continue with the furosemide drip for now but if creatinine continues to go up then may need to change to bolus dosing or discontinue altogether. Continue with spironolactone, continue with losartan and metoprolol Check an echo Atrial fibrillation with RVR Likely exacerbated due to the CHF exacerbation Was started on diltiazem drip in the ED. Diltiazem drip was discontinued on the same day, the .. Heart rate seems to be improved. Continue with amiodarone as well as metoprolol Will initiate metoprolol tartrate and have as needed IV metoprolol. DC diltiazem drip and observe. Already anticoagulated on apixaban Acute hypoxic and hypercapnic respiratory failure Improved wean BiPAP as able. Patient requires volume ventilation and all other alternative therapies, including bilevel, have been considered and ruled out due to the severity of the disease state, weak breathing muscles and potential life-threatening condition including CO2 retention probability of acute exacerbation, patient requires ventilation to be used during the day as needed, addition to every night usage with facemask. Bacteremia + Strep, not strep pneumonia. Suspect related with his venous stasis ulcer that he has on his left lower extremity. On CTX repeat BCx pending Left lower extremity venous stasis ulcer Wound care Chronic conditions Morbid obesity Hyperlipidemia: Continue statin Diabetes mellitus type 2: Sliding scale insulin VTE prophylaxis: Not indicated as patient is already anticoagulated. Disposition: To be determined. Anticipate patient prior requiring several more days of hospitalization. Complicating the patient's case is that he has no insurance. Case management aware and assisting as able. Charges/Coding Visit Charges Inpatient E&M: 06638 Subs Hosp L3
[2023-10-04] MEDS: APIXABAN 5 MG TABLET PO ×2 (09:31→21:47)
[2023-10-04] MEDS: Metoprolol Tartrate 25 MG Tablet PO (09:32)
[2023-10-04] MEDS: Amiodarone 200 MG Tablet PO ×2 (09:32→21:48)
[2023-10-04] MEDS: oxyCODONE 5 MG Tablet PO ×2 (09:32→19:58)
[2023-10-04] MEDS: Spironolactone 25 MG Tablet 12.5 MG PO (09:32)
[2023-10-04] MEDS: Losartan Potassium 25 MG Tablet PO (09:32)
[2023-10-04 09:48] LABS: Absolute Lymphocyte Count 0.24 X10^3/uL (0.83-4.51); Basophil# 0.06 X10^3/uL; Basophil% 0.5 % (0-1); Eosinophil# 0.17 X10^3/uL; Eosinophils% 1.3 % (0-5); Hemoglobin 13.9 g/dL (13.0-16.5); Lymphocyte # 0.24 X10^3/ul (0.83-4.51); Lymphocyte % 1.9 % (19-41); Mean Corp Hgb Conc 30.9 g/dL (32-36); Mean Corpuscular Hgb 26.8 pg (27.0-32.0); Mean Corpuscular Volume 86.9 fL (80-94); Mean Platelet Vol. 8.7 fl (6.2-12.0); Monocyte# 0.29 X10^3/uL; Monocyte% 2.2 % (0-10); NRBC Flagged by Analyzer 0 % (0-5); Neutrophil # 11.96 X10^3/uL (2.7-7.7); Neutrophil % 92.6 % (47-70); POSITIVE DIFFERENTIAL YES; Platelet Count 157 K/mm3 (150-450); RBC Distribution Width CV 16.1 % (11.6-14.6); RBC Distribution Width SD 51.3 fl (35.1-43.9); Red Blood Count 5.18 M/mm3 (4.6-6.2); White Blood Count 12.9 K/mm3 (4.4-11.0)
--- NOTE | 2023-10-04 10:40 | CASEMGMT ---
UZMA BONNER Face to Face with patient for initial transition planning/care coordination assessment. RN CM introduced self and role at [facility]. Patient sitting in chair, alert and oriented. Patient willing to participate in assessment and is able to answer all questions appropriately. Care providers, pharmacy, and demographics verified. PCP: none, list provided Specialists: none Preferred Pharmacy: [facility] Insurance: none Prescription Benefit: none Living Will/HPOA: none LNOK: daughter, father Living Arrangements: Patient lives with daughter and father in a single story home with no steps to enter. Patient states he is independent at home. Transportation: self, father DME/HHC: Patient denies DME in the home. No previous HHC or SNF. Will monitor for home oxygen. Patient has no preferences. Patient wishes to discharge home, denies need for home health at this time. Patient states he has no further needs or concerns at this time. CM to follow for discharge planning needs that may arise. Disposition Plan: Patient to discharge home with family support and follow-up plans in place. Will monitor for home oxygen. Germaine MOREAU, RN, CM
[2023-10-04 10:45] LABS: ALB/GLOB Ratio 0.7 RATIO (0.9-2.4); AST(SGOT) 19 U/L (15-37); Alanine Aminotransfer ALT/SGPT 23 U/L (16-61); Albumin, Serum 3.1 g/dL (3.2-5.0); Alkaline Phosphatase 105 U/L (45-117); Anion Gap 6 (5-15); BUN 24 mg/dL (7-18); BUN/Creat Ratio 13.8 RATIO (10-20); Chloride 97 mmol/L (98-107); Creatinine, Serum 1.74 mg/dL (0.70-1.30); EST Glomerular Filtration Rate 44 mL/min (>60); Est Glom Filt Rate - Afr Amer 54 mL/min (>60); Globulin 4.2 g/dL (2.2-4.2); Glucose 143 mg/dL (74-106); Potassium 3.7 mmol/L (3.5-5.1); Protein, Total 7.3 g/dL (6.4-8.2); Sodium Level 138 mmol/L (136-145); Thyroid Stim Hormone (TSH) 1.64 uIU/mL (0.358-3.74)
[2023-10-04 12:02] LABS: Bedside Glucose 134 mg/dL (74-106)
--- NOTE | 2023-10-04 12:46 | CASEMGMT ---
SW met with patient. Introduced self and role at [facility]. SW provided patient with information on [facility], [facility] financial assistance program, [employer], and list of prescription assistance programs. SW also let patient know that there should be an individual named Leslie that will stop in and see him to assist with a Medicaid application. Patient said his only medication that is expensive is Eliquis. Ama Cesar SCREENER PERFUMER ELIZABETH
--- NOTE | 2023-10-04 13:04 | WOUNDNOTE ---
wound photo: left medial lower leg
--- NOTE | 2023-10-04 13:05 | WOUNDNOTE ---
wound photo: left alfonso
[2023-10-04] MEDS: Acetaminophen 325 MG Tablet 650 MG PO (13:44)
[2023-10-04] MEDS: Furosemide 500 MG in Empty Viaflex 50 mL 1 EACH CONT INF (15:25)
[2023-10-04 17:35] LABS: Bedside Glucose 129 mg/dL (74-106)
[2023-10-04] MEDS: Atorvastatin Calcium 40 MG Tablet PO (21:47)
[2023-10-05] VITALS (13 sets, daily range): BP systolic 102–116; BP diastolic 60–84; PULSE 78–90; RESP 12–31; TEMP 36.1–37.2; O2SAT 81–99; BMI 55.2
[2023-10-05 07:27] LABS: Bedside Glucose 91 mg/dL (74-106)
[2023-10-05 08:30] LABS: Absolute Lymphocyte Count 0.38 X10^3/uL (0.83-4.51); Absolute Neutrophil Count 9.6 X10^3/uL (2.0-7.7); Basophil# 0.05 X10^3/uL; Basophil% 0.5 % (0-1); Eosinophil# 0.02 X10^3/uL; Eosinophils% 0.2 % (0-5); Hematocrit 41.8 % (40-54); Lymphocyte # 0.38 X10^3/ul (0.83-4.51); Lymphocyte % 3.6 % (19-41); Mean Corp Hgb Conc 31.1 g/dL (32-36); Mean Corpuscular Hgb 26.9 pg (27.0-32.0); Mean Corpuscular Volume 86.4 fL (80-94); Mean Platelet Vol. 9.5 fl (6.2-12.0); Monocyte# 0.43 X10^3/uL; Monocyte% 4.1 % (0-10); NRBC Flagged by Analyzer 0 % (0-5); Neutrophil # 9.55 X10^3/uL (2.7-7.7); Neutrophil % 91.2 % (47-70); POSITIVE DIFFERENTIAL YES; POSITIVE MORPHOLOGY YES; Platelet Count 159 K/mm3 (150-450); RBC Distribution Width SD 50.7 fl (35.1-43.9); Red Blood Count 4.84 M/mm3 (4.6-6.2); White Blood Count 10.5 K/mm3 (4.4-11.0)
[2023-10-05 08:35] LABS: Differential Indicated SCAN CRITERIA MET
[2023-10-05] MEDS: APIXABAN 5 MG TABLET PO ×2 (08:35→21:34)
[2023-10-05] MEDS: Spironolactone 25 MG Tablet 12.5 MG PO (08:36)
[2023-10-05] MEDS: Losartan Potassium 25 MG Tablet PO (08:36)
[2023-10-05] MEDS: Metoprolol Tartrate 25 MG Tablet PO ×2 (08:36→21:33)
[2023-10-05] MEDS: Amiodarone 200 MG Tablet PO ×2 (08:36→21:34)
[2023-10-05 08:43] LABS: Anion Gap 3 (5-15); BUN 27 mg/dL (7-18); BUN/Creat Ratio 17.9 RATIO (10-20); Calcium,Total 8.5 mg/dL (8.5-10.1); Chloride 97 mmol/L (98-107); Creatinine, Serum 1.51 mg/dL (0.70-1.30); EST Glomerular Filtration Rate 52 mL/min (>60); Est Glom Filt Rate - Afr Amer 63 mL/min (>60); Estimated Creatinine Clearance 102.57 ml/min; Glucose 95 mg/dL (74-106); Potassium 3.3 mmol/L (3.5-5.1); Sodium Level 137 mmol/L (136-145)
[2023-10-05 10:05] LABS: Differential Comment SCANNED
[2023-10-05] MEDS: oxyCODONE 5 MG Tablet PO (11:22)
[2023-10-05] MEDS: Bisacodyl 5 MG Tablet 10 MG PO (14:53)
[2023-10-05 17:07] LABS: Bedside Glucose 137 mg/dL (74-106)
--- NOTE | 2023-10-05 18:07 | PN.HOSP_ITS ---
Reason for Visit Reason for Visit: Diagnoses Unspecified atrial fibrillation (10/03/23) Heart failure, unspecified (10/03/23) Subjective Subjective Patient was seen and examined today, he still has significant anasarca. Patient is currently on low-flow nasal cannula oxygen Objective Data Objective Data Vital Signs: Vital Signs Temp Pulse Resp BP Pulse Ox O2 Del Method O2 Flow Rate 98.9 F 80 16 108/60 94 Nasal Cannula 1 10/05/23 14:56 10/05/23 14:56 10/05/23 14:56 10/05/23 14:56 10/05/23 15:14 10/05/23 15:14 10/05/23 15:14 FiO2 35 10/05/23 01:23 Oxygen Flow Rate (L/min) 1 Oxygen Delivery Method Nasal Cannula Weight: 189.9 kg Body Mass Index (BMI) 55.2 Intake & Output: Intake and Output for Last 24 Hours 10/03/23 10/04/23 10/05/23 23:59 23:59 23:59 Intake Total 862.32 / 1062.32 1384.08 / 1384.08 Output Total 2425 / 2700 2550 / 2550 1450 / 1450 Balance -1562.68 / -1637.68 -1165.92 / -1165.92 -1450 / -1450 Lab / Micro Data 10/05/23 07:52 10/05/23 07:52 Labs: Laboratory Results - last 24 hr 10/05/23 07:07: POC Glucose 91 10/05/23 07:52: WBC 10.5, RBC 4.84, Hgb 13.0, Hct 41.8, MCV 86.4, MCH 26.9 L, MCHC 31.1 L, RDW Std Deviation 50.7 H, RDW Coeff of Darshan 16.0 H, Plt Count 159, MPV 9.5, Immature Gran % (Auto) 0.400, Neut % (Auto) 91.2 H, Lymph % (Auto) 3.6 L, [place] % (Auto) 4.1, Eos % (Auto) 0.2, Baso % (Auto) 0.5, Absolute Neuts (auto) 9.6 H, Absolute Lymphs (auto) 0.38 L, Nucleated RBC % 0, Differential Comment SCANNED, Sodium 137, Potassium 3.3 L, Chloride 97 L, Carbon Dioxide 37.0 H, Anion Gap 3 L, BUN 27 H, Creatinine 1.51 H, Estim Creat Clear Calc 102.57, Est GFR (MDRD) Af Amer 63, Est GFR (MDRD) Non-Af 52 L, BUN/Creatinine Ratio 17.9, Glucose 95, Calcium 8.5 10/05/23 16:51: POC Glucose 137 H Micro: Microbiology 10/03/23 07:16 Blood Culture (Wb) - Anticubital Left Blood Culture - Final Beta streptococcus 10/04/23 10:40 Wound - Leg, Left Gram Stain - Final 10/04/23 10:40 Wound - Leg, Left Wound Culture - Preliminary Gram negative julia Staphylococcus species Beta streptococcus 10/03/23 07:28 Blood Culture (Wb) - Anticubital Right Bacteria Detection (PCR) - Final Strep not Strep pneumo 10/03/23 07:28 Blood Culture (Wb) - Anticubital Right Blood Culture - Final Streptococcus dysgalactiae equ 10/03/23 07:45 Mucosa - Nose SARS-CoV-2, Influenza & RSV (PCR) - Final Physical Exam Const alert, oriented x3 and no apparent distress Constitutional Narrative: Patient is morbidly obese General Appearance: cooperative, well kempt and well developed Orientation / Consciousness: awake, oriented to person, oriented to place and oriented to time HEENT normocephalic and moist oral mucous membranes Eyes PERRL, EOMs intact bilaterally and conjunctivae normal Neck supple, no JVD, thyroid normal and no carotid bruits General: trachea midline Resp normal respiratory effort and clear to auscultation bilaterally Auscultation: Negative for rales, rhonchi or wheezes Cardio S1 normal heart sound, S2 normal heart sound, no murmurs, no rub and no gallops Cardio Narrative: Heart rate and rhythm is irregular GI normal to inspection, nondistended, normoactive bowel sounds, soft to palpation, non-tender and non-distended Extremity Extremity Narrative: Patient has significant edema of both legs, Spenser wraps were not removed for examination of the leg Neuro oriented x3, CN's II-XII intact bilaterally, moves all extremities, no focal motor deficits and no sensory deficits noted Sensorium / Orientation: awake and alert Speech: speech normal Psych affect normal Assessment & Plan Assessment/Plan (1) CHF (congestive heart failure): PLAN: Plan 1. Acute heart failure with preserved ejection fraction-patient was given a dose of metolazone today, I have elected to increase his Lasix drip to 20 mg/h to facilitate more fluid removal, patient was placed on oral potassium, BMP will be monitored #2 chronic atrial fibrillation-patient is on amiodarone and metoprolol, he remains on Eliquis #3 acute hypoxic and hypercapnic respiratory failure-patient is currently on low-flow oxygen, pulse ox will be monitored #4 bacteremia secondary to strep-is suspected the organism is from a leg ulceration, await final wound culture #5 type 2 diabetes-patient's blood sugars will be monitored, sliding scale insulin will be administered as needed #6 essential hypertension-patient will remain on his current medications Total clinical time spent by myself addressing the patient's medical issues, reviewing all of his data, and collaborating with patient's care team: 35 minutes Charges/Coding Visit Charges Inpatient E&M: 81185 Subs Hosp L2
[2023-10-05] MEDS: metOLazone 5 MG Tablet PO (20:10)
[2023-10-05] MEDS: Atorvastatin Calcium 40 MG Tablet PO (21:33)
[2023-10-05] MEDS: Ceftriaxone 1 GM/50 ML BAG IV (21:45)
[2023-10-06] VITALS (10 sets, daily range): BP systolic 108–119; BP diastolic 68–85; PULSE 65–94; RESP 12–25; TEMP 36.1–36.8; O2SAT 92–98; BMI 54.4
[2023-10-06] MEDS: oxyCODONE 5 MG Tablet PO ×4 (00:29→21:05)
[2023-10-06] MEDS: Insulin Lispro 100 UNIT/ML INSULN.PEN SC ×3 (06:02→16:51)
[2023-10-06 06:19] LABS: Anion Gap 5 (5-15); BUN 33 mg/dL (7-18); BUN/Creat Ratio 21.6 RATIO (10-20); Calcium,Total 8.7 mg/dL (8.5-10.1); Chloride 94 mmol/L (98-107); Creatinine, Serum 1.53 mg/dL (0.70-1.30); EST Glomerular Filtration Rate 51 mL/min (>60); Est Glom Filt Rate - Afr Amer 62 mL/min (>60); Estimated Creatinine Clearance 101.23 ml/min; Glucose 186 mg/dL (74-106); Potassium 3.1 mmol/L (3.5-5.1); Sodium Level 134 mmol/L (136-145)
[2023-10-06 06:40] LABS: Bedside Glucose 173 mg/dL (74-106)
[2023-10-06] MEDS: APIXABAN 5 MG TABLET PO ×2 (08:14→20:37)
[2023-10-06] MEDS: Metoprolol Tartrate 25 MG Tablet PO ×2 (08:14→20:37)
[2023-10-06] MEDS: Potassium Chloride Oral Tablet 20 MEQ PO ×2 (08:15→16:52)
[2023-10-06] MEDS: Spironolactone 25 MG Tablet 12.5 MG PO (08:15)
[2023-10-06] MEDS: Potassium Chloride Oral Tablet 20 MEQ 60 MEQ PO (08:15)
[2023-10-06] MEDS: Losartan Potassium 25 MG Tablet PO (08:15)
[2023-10-06] MEDS: Amiodarone 200 MG Tablet PO ×2 (08:15→20:37)
[2023-10-06 11:42] LABS: Bedside Glucose 206 mg/dL (74-106)
[2023-10-06] MEDS: Furosemide 500 MG in Empty Viaflex 50 mL 1 EACH CONT INF (12:12)
--- NOTE | 2023-10-06 15:06 | PCM.PN.HOSP ---
Reason for Visit Reason for Visit: Diagnoses Unspecified atrial fibrillation (10/03/23) Heart failure, unspecified (10/03/23) Subjective Subjective Patient was seen and examined today, he appears to be diuresing with the IV Lasix, patient's potassium was slightly low today-he was given potassium replacement Objective Data Objective Data Vital Signs: Vital Signs Temp Pulse Resp BP Pulse Ox O2 Del Method O2 Flow Rate 98.2 F 94 18 119/68 96 Nasal Cannula 2 10/06/23 14:23 10/06/23 14:23 10/06/23 14:23 10/06/23 14:23 10/06/23 14:23 10/06/23 14:23 10/06/23 14:23 FiO2 30 10/05/23 23:00 Oxygen Flow Rate (L/min) 2 Oxygen Delivery Method Nasal Cannula Weight: 187.3 kg Body Mass Index (BMI) 54.4 Intake & Output: Intake and Output for Last 24 Hours 10/04/23 10/05/23 10/06/23 23:59 23:59 23:59 Intake Total 1384.08 / 1384.08 400 / 400 618.98 / 618.98 Output Total 2550 / 2550 2750 / 2750 3850 / 3850 Balance -1165.92 / -1165.92 -2350 / -2350 -3231.02 / -3231.02 Lab / Micro Data 10/05/23 07:52 10/06/23 05:35 Labs: Laboratory Results - last 24 hr 10/05/23 16:51: POC Glucose 137 H 10/06/23 05:35: Sodium 134 L, Potassium 3.1 L, Chloride 94 L, Carbon Dioxide 35.0 H, Anion Gap 5, BUN 33 H, Creatinine 1.53 H, Estim Creat Clear Calc 101.23, Est GFR (MDRD) Af Amer 62, Est GFR (MDRD) Non-Af 51 L, BUN/Creatinine Ratio 21.6 H, Glucose 186 H, Calcium 8.7 10/06/23 06:02: POC Glucose 173 H 10/06/23 11:17: POC Glucose 206 H Micro: Microbiology 10/04/23 09:35 Blood Culture (Wb) - Arm Right Blood Culture - Preliminary No growth in 48 hours. 10/04/23 10:40 Wound - Leg, Left Gram Stain - Final 10/04/23 10:40 Wound - Leg, Left Wound Culture - Final Enterobacter cloacae complex Staphylococcus aureus Streptococcus group C 10/03/23 07:16 Blood Culture (Wb) - Anticubital Left Blood Culture - Final Beta streptococcus 10/03/23 07:28 Blood Culture (Wb) - Anticubital Right Bacteria Detection (PCR) - Final Strep not Strep pneumo 10/03/23 07:28 Blood Culture (Wb) - Anticubital Right Blood Culture - Final Streptococcus dysgalactiae equ 10/03/23 07:45 Mucosa - Nose SARS-CoV-2, Influenza & RSV (PCR) - Final Physical Exam Narrative alert, oriented x3 and no apparent distress Constitutional Narrative: Patient is morbidly obese General Appearance: cooperative, well kempt and well developed Orientation / Consciousness: awake, oriented to person, oriented to place and oriented to time HEENT normocephalic and moist oral mucous membranes Eyes PERRL, EOMs intact bilaterally and conjunctivae normal Neck supple, no JVD, thyroid normal and no carotid bruits General: trachea midline Resp normal respiratory effort and clear to auscultation bilaterally Auscultation: Negative for rales, rhonchi or wheezes Cardio S1 normal heart sound, S2 normal heart sound, no murmurs, no rub and no gallops Cardio Narrative: Heart rate and rhythm is irregular GI normal to inspection, nondistended, normoactive bowel sounds, soft to palpation, non-tender and non-distended Extremity Extremity Narrative: Patient has significant edema of both legs, Spenser wraps were not removed for examination of the leg Neuro oriented x3, CN's II-XII intact bilaterally, moves all extremities, no focal motor deficits and no sensory deficits noted Sensorium / Orientation: awake and alert Speech: speech normal Psych affect normal Assessment & Plan Assessment/Plan (1) CHF (congestive heart failure): PLAN: Plan 1. Acute heart failure with preserved ejection fraction-continue IV Lasix at this time #2 chronic atrial fibrillation-patient is on amiodarone and metoprolol, he remains on Eliquis #3 acute hypoxic and hypercapnic respiratory failure-patient is currently on low-flow oxygen, pulse ox will be monitored #4 bacteremia secondary to strep-is suspected the organism is from a leg ulceration, await final wound culture #5 type 2 diabetes-patient's blood sugars will be monitored, sliding scale insulin will be administered as needed #6 essential hypertension-patient will remain on his current medications Total clinical time spent by myself addressing the patient's medical issues, reviewing all of his data, and collaborating with patient's care team: 35 minutes Charges/Coding Visit Charges Inpatient E&M: 93084 Subs Hosp L2
[2023-10-06] MEDS: Acetaminophen 325 MG Tablet 650 MG PO (16:57)
[2023-10-06 17:17] LABS: Bedside Glucose 230 mg/dL (74-106)
[2023-10-06] MEDS: Atorvastatin Calcium 40 MG Tablet PO (20:37)
[2023-10-06] MEDS: Ceftriaxone 1 GM/50 ML BAG IV (20:37)
[2023-10-06 21:15] LABS: Bedside Glucose 266 mg/dL (74-106)
[2023-10-07] VITALS (11 sets, daily range): BP systolic 107–123; BP diastolic 54–74; PULSE 70–94; RESP 12–26; TEMP 36.1–36.7; O2SAT 91–98; BMI 53.9
[2023-10-07] MEDS: Insulin Lispro 100 UNIT/ML INSULN.PEN SC ×3 (06:14→16:49)
[2023-10-07] MEDS: oxyCODONE 5 MG Tablet PO ×2 (06:30→16:42)
[2023-10-07 06:54] LABS: Bedside Glucose 171 mg/dL (74-106)
[2023-10-07 07:35] LABS: Anion Gap 6 (5-15); BUN 35 mg/dL (7-18); BUN/Creat Ratio 22.4 RATIO (10-20); Calcium,Total 8.7 mg/dL (8.5-10.1); Chloride 89 mmol/L (98-107); Creatinine, Serum 1.56 mg/dL (0.70-1.30); EST Glomerular Filtration Rate 50 mL/min (>60); Est Glom Filt Rate - Afr Amer 61 mL/min (>60); Estimated Creatinine Clearance 97.87 ml/min; Glucose 172 mg/dL (74-106); Sodium Level 135 mmol/L (136-145)
[2023-10-07] MEDS: Losartan Potassium 25 MG Tablet PO (09:02)
[2023-10-07] MEDS: Metoprolol Tartrate 25 MG Tablet PO ×2 (09:03→20:34)
[2023-10-07] MEDS: Amiodarone 200 MG Tablet PO ×2 (09:03→20:33)
[2023-10-07] MEDS: Spironolactone 25 MG Tablet 12.5 MG PO (09:03)
[2023-10-07] MEDS: APIXABAN 5 MG TABLET PO ×2 (09:03→20:33)
[2023-10-07] MEDS: Potassium Chloride Oral Tablet 20 MEQ PO ×2 (09:04→16:42)
[2023-10-07 12:23] LABS: Bedside Glucose 214 mg/dL (74-106)
--- NOTE | 2023-10-07 12:47 | WOUNDNOTE ---
wound photo: left medial lower leg
--- NOTE | 2023-10-07 12:47 | WOUNDNOTE ---
wound photo: left alfonso
--- NOTE | 2023-10-07 12:48 | WOUNDNOTE ---
wound photo: left lateral foot
--- NOTE | 2023-10-07 12:49 | WOUNDNOTE ---
skin photo: left plantar foot
[2023-10-07] MEDS: Furosemide 500 MG in Empty Viaflex 50 mL 1 EACH CONT INF (13:22)
--- NOTE | 2023-10-07 16:19 | PCM.PN.HOSP ---
Reason for Visit Reason for Visit: Diagnoses Unspecified atrial fibrillation (10/03/23) Heart failure, unspecified (10/03/23) Subjective Subjective Patient was seen and examined today, the wound nurse contacted me and stated that she felt the patient need to be seen by podiatry due to a plantar wound on the patient's left foot. I reviewed pictures of this wound. Patient continues to diurese on IV Lasix. He remains on nasal cannula O2 at this time. Objective Data Objective Data Vital Signs: Vital Signs Temp Pulse Resp BP Pulse Ox O2 Del Method O2 Flow Rate 97.4 F L 94 18 123/71 H 96 Nasal Cannula 2 10/07/23 09:00 10/07/23 09:03 10/07/23 09:00 10/07/23 09:03 10/07/23 09:00 10/07/23 13:32 10/07/23 13:32 FiO2 30 10/07/23 02:24 Oxygen Flow Rate (L/min) 2 Oxygen Delivery Method Nasal Cannula Weight: 185.5 kg Body Mass Index (BMI) 53.9 Intake & Output: Intake and Output for Last 24 Hours 10/05/23 10/06/23 10/07/23 23:59 23:59 23:59 Intake Total 400 / 400 1128.98 / 1128.98 290 / 290 Output Total 2750 / 2750 6750 / 6750 4550 / 4550 Balance -2350 / -2350 -5621.02 / -5621.02 -4260 / -4260 Lab / Micro Data 10/05/23 07:52 10/07/23 06:25 Labs: Laboratory Results - last 24 hr 10/06/23 16:49: POC Glucose 230 H 10/06/23 20:34: POC Glucose 266 H 10/07/23 06:15: POC Glucose 171 H 10/07/23 06:25: Sodium 135 L, Potassium 3.0 L, Chloride 89 L, Carbon Dioxide 40.0 H, Anion Gap 6, BUN 35 H, Creatinine 1.56 H, Estim Creat Clear Calc 97.87, Est GFR (MDRD) Af Amer 61, Est GFR (MDRD) Non-Af 50 L, BUN/Creatinine Ratio 22.4 H, Glucose 172 H, Calcium 8.7 10/07/23 11:44: POC Glucose 214 H Micro: Microbiology 10/04/23 09:35 Blood Culture (Wb) - Arm Right Blood Culture - Preliminary No growth in 48 hours. 10/04/23 10:40 Wound - Leg, Left Gram Stain - Final 10/04/23 10:40 Wound - Leg, Left Wound Culture - Final Enterobacter cloacae complex Staphylococcus aureus Streptococcus group C 10/03/23 07:16 Blood Culture (Wb) - Anticubital Left Blood Culture - Final Beta streptococcus 10/03/23 07:28 Blood Culture (Wb) - Anticubital Right Bacteria Detection (PCR) - Final Strep not Strep pneumo 10/03/23 07:28 Blood Culture (Wb) - Anticubital Right Blood Culture - Final Streptococcus dysgalactiae equ 10/03/23 07:45 Mucosa - Nose SARS-CoV-2, Influenza & RSV (PCR) - Final Radiography Diagnostic Testing: Radiology Impression Echocardiogram 10/03/23 13:40 Interpretation Summary The estimated ejection fraction is 35 %. There is mild biatrial dilatation. The study was technically difficult. The study was technically limited. Contrast injection was performed. Ordering Physician: Ronnie Kumar Performed By: Dustin Marion RCS Physical Exam Narrative alert, oriented x3 and no apparent distress Constitutional Narrative: Patient is morbidly obese General Appearance: cooperative, well kempt and well developed Orientation / Consciousness: awake, oriented to person, oriented to place and oriented to time HEENT normocephalic and moist oral mucous membranes Eyes PERRL, EOMs intact bilaterally and conjunctivae normal Neck supple, no JVD, thyroid normal and no carotid bruits General: trachea midline Resp normal respiratory effort and clear to auscultation bilaterally Auscultation: Negative for rales, rhonchi or wheezes Cardio S1 normal heart sound, S2 normal heart sound, no murmurs, no rub and no gallops Cardio Narrative: Heart rate and rhythm is irregular GI normal to inspection, nondistended, normoactive bowel sounds, soft to palpation, non-tender and non-distended Extremity Extremity Narrative: Patient has significant edema of both legs, Spenser wraps were not removed for examination of the leg Neuro oriented x3, CN's II-XII intact bilaterally, moves all extremities, no focal motor deficits and no sensory deficits noted Sensorium / Orientation: awake and alert Speech: speech normal Psych affect normal Assessment & Plan Assessment/Plan (1) CHF (congestive heart failure): PLAN: Plan 1. Acute heart failure with preserved ejection fraction-continue IV Lasix at this time #2 chronic atrial fibrillation-patient is on amiodarone and metoprolol, he remains on Eliquis #3 acute hypoxic and hypercapnic respiratory failure-patient is currently on low-flow oxygen, pulse ox will be monitored #4 bacteremia secondary to strep, methicillin sensitive Staph aureus, and Enterobacter cloacae-patient is currently on Rocephin, I will change his antibiotic coverage to Cipro #5 type 2 diabetes-patient's blood sugars will be monitored, sliding scale insulin will be administered as needed #6 essential hypertension-patient will remain on his current medications #7 eschar on the lateral aspect of the plantar surface of the left foot-podiatry will see the patient in consultation Total clinical time spent by myself addressing the patient's medical issues, reviewing all of his data, and collaborating with patient's care team: 35 minutes Charges/Coding Visit Charges Inpatient E&M: 35124 Subs Hosp L2
[2023-10-07] MEDS: Potassium Chloride Oral Tablet 20 MEQ 60 MEQ PO (16:42)
[2023-10-07] MEDS: Acetaminophen 325 MG Tablet 650 MG PO (16:43)
[2023-10-07 17:15] LABS: Bedside Glucose 214 mg/dL (74-106)
[2023-10-07] MEDS: Juven (unflavored) Packet 1 PACKET PO (18:11)
[2023-10-07] MEDS: Lactulose 20 GM/30 ML UDC 10 GM PO (18:12)
[2023-10-07] MEDS: Atorvastatin Calcium 40 MG Tablet PO (20:33)
[2023-10-07] MEDS: Cefdinir 300 MG Capsule PO (20:34)
--- NOTE | 2023-10-07 20:58 | PCM.CONS.GEN ---
Assessment & Plan Assessment/Plan (1) Cellulitis of left lower limb: (2) Lymphedema, not elsewhere classified: (3) Other hereditary and idiopathic neuropathies: (4) Non-pressure chronic ulcer of left calf with fat layer exposed: PLAN: Plan Evaluation performed. Reviewed diagnostic data. There is left lower extremity ulcerations down to subc tissue, there is also callusing to the lateral foot - the callus was debrided and no visible abscess, and does not appear to be deep involvement either, there is cellulitis however. There was some bleeding noted plantar, but again no deep involvement noted. Painted site with betadine soln and applied gauze, abd and kerlix dressing with overlying nancy bandages. Reviewed culture result results - continue with antibiotic therapy. Continue with compression therapy and elevation for edema. Podiatry will continue to follow, thank you for consultation. HPI Consult Data Date of Consult: 10/07/23 HPI Narrative Reason for Consultation: Left lower extremity ulcers and infection HPI Narrative: LACHO BROCK, is a 48 M who presents with left lower extremity cellulitis, hx of lymphedema and many other medical problems. He relates he procrastinated and leg got very swollen and red, he develop sepsis and pneumonia, he is on antibiotic therapy and he relates he is feeling a lot better. He relates he did have pain in his left foot but he relates it is much better. There is a lot of callus to the lateral left foot. He is resting comfortably in bed watching tv. WBC is normal. It does not appear he has had left lower extremity xrays. [facility]LY [facility] Medical History Afib CHF (congestive heart failure) COPD (chronic obstructive pulmonary disease) HTN (hypertension) Home Medications amiodarone 200 mg tablet 200 mg PO BID 10/03/23 [History Last Taken 10/02/23] apixaban 5 mg tablet (Eliquis) 5 mg PO BID blood thinner 10/03/23 [History Last Taken 10/02/23] atorvastatin 40 mg tablet 40 mg PO QHS 10/03/23 [History Last Taken 10/02/23] furosemide 40 mg tablet 40 mg PO BID 10/03/23 [History Last Taken 10/02/23] glimepiride 2 mg tablet 2 mg PO DAILY 10/03/23 [History Last Taken 10/02/23] losartan 25 mg tablet 25 mg PO DAILY 10/03/23 [History Last Taken 10/02/23] metoprolol succinate 25 mg tablet,extended release 24 hr 25 mg PO DAILY 10/03/23 [History Last Taken 10/02/23] spironolactone 25 mg tablet 12.5 mg PO DAILY 10/03/23 [History Last Taken 10/02/23] Allergy/AdvReac Type Severity Reaction Status Date / Time No Known Allergies Allergy Verified 10/03/23 06:49 Family History (Updated 10/03/23 @ 16:[address] Ronnie Kumar, ) Other Heart disease Social History (Updated 10/03/23 @ 16:[address] Ronnie Kumar DO) Smoking Status: Current every day smoker tobacco type: cigarettes alcohol intake: current alcohol intake frequency: a few times a month Physical Exam Const alert, oriented x3 and no apparent distress Constitutional Narrative: Left Lower extremity- there is diffuse cellulitis, there is open ulceration to the posterior leg and also 2 ulcerations to the anterior leg down to subc tissue - fibrogranular base with viable margins, there is significant callusing to the left lateral forefoot - no visible abscess, no evidence of deep involvement, no maloder, no fluctuance, no crepitus, no blistering, no necrosis present, no streaking, there is diffuse edema- appears edema and cellulitis are improving - there is decreased sensation to the foot c/w chronic peripheral neuropathy - no evidence of acute ischemia and CFT < 2 seconds to all toes, appears good vascular influx to foot clinically, no POP or pain on ROM to the foot or ankle. Lab / Micro Data 10/05/23 07:52 10/07/23 06:25 Labs: Laboratory Results - last 24 hr 10/06/23 20:34: POC Glucose 266 H 10/07/23 06:15: POC Glucose 171 H 10/07/23 06:25: Sodium 135 L, Potassium 3.0 L, Chloride 89 L, Carbon Dioxide 40.0 H, Anion Gap 6, BUN 35 H, Creatinine 1.56 H, Estim Creat Clear Calc 97.87, Est GFR (MDRD) Af Amer 61, Est GFR (MDRD) Non-Af 50 L, BUN/Creatinine Ratio 22.4 H, Glucose 172 H, Calcium 8.7 10/07/23 11:44: POC Glucose 214 H 10/07/23 16:39: POC Glucose 214 H Imaging Radiology Impression Echocardiogram 10/03/23 13:40 Interpretation Summary The estimated ejection fraction is 35 %. There is mild biatrial dilatation. The study was technically difficult. The study was technically limited. Contrast injection was performed. Ordering Physician: Ronnie Kumra Performed By: Dustin Marion RCS
--- NOTE | 2023-10-07 21:40 | RAD_ITS ---
STUDY: X-RAY - LEFT TIBIA AND FIBULA REASON FOR EXAM: Male, 48 years old. cellulitis TECHNIQUE: 2 view(s) of the tibia and fibula were obtained. COMPARISON: None. FINDINGS: Normal visualized tibia. Normal visualized fibula. Diffuse soft tissue swelling. RAD/Tibia & Fibula 2 Views IMPRESSION: No acute fracture or dislocation. Diffuse soft tissue swelling. Electronically Signed: Parth Espino MD at 23:08 EDT ,
--- NOTE | 2023-10-07 21:40 | RAD_ITS ---
STUDY: X-RAY - LEFT FOOT CLINICAL: Male, 48 years old. cellulitis TECHNIQUE: 3 view(s) of the foot. COMPARISON: None. FINDINGS: Normal talus, calcaneus, and tarsal bones. Tiny plantar calcaneal enthesophyte. Normal visualized subtalar, talonavicular, calcaneocuboid, tarsal and tarsometatarsal articulations. Normal metatarsi. Normal metatarsophalangeal joint of the great toe. Normal tibial and fibular sesamoid bones. Normal interphalangeal joint of the great toe. Normal phalanges of the great toe. Normal second through fifth metatarsophalangeal joints. Normal interphalangeal joints and phalanges of the lesser toes. The soft tissue structures are unremarkable. No bony destruction to suggest osteomyelitis. RAD/Foot min 3 Views IMPRESSION: Normal x-ray examination of the foot. Electronically Signed: Parth Espino MD at 23:06 EDT ,
[2023-10-08] VITALS (10 sets, daily range): BP systolic 102–118; BP diastolic 54–85; PULSE 64–96; RESP 16–20; TEMP 36.6–36.7; O2SAT 86–96; BMI 54.1
[2023-10-08 00:08] LABS: Bedside Glucose 235 mg/dL (74-106)
[2023-10-08] MEDS: Insulin Lispro 100 UNIT/ML INSULN.PEN SC ×3 (06:42→16:51)
[2023-10-08 07:09] LABS: Bedside Glucose 179 mg/dL (74-106)
[2023-10-08] MEDS: Lactulose 20 GM/30 ML UDC 10 GM PO (08:58)
[2023-10-08] MEDS: Spironolactone 25 MG Tablet 12.5 MG PO (08:58)
[2023-10-08] MEDS: Metoprolol Tartrate 25 MG Tablet PO ×2 (08:58→22:28)
[2023-10-08] MEDS: Amiodarone 200 MG Tablet PO ×2 (08:59→22:27)
[2023-10-08] MEDS: Losartan Potassium 25 MG Tablet PO (08:59)
[2023-10-08] MEDS: oxyCODONE 5 MG Tablet PO ×2 (08:59→19:51)
[2023-10-08] MEDS: Potassium Chloride Oral Tablet 20 MEQ PO ×2 (08:59→16:51)
[2023-10-08] MEDS: Cefdinir 300 MG Capsule PO ×2 (08:59→22:27)
[2023-10-08] MEDS: Acetaminophen 325 MG Tablet 650 MG PO (08:59)
[2023-10-08] MEDS: APIXABAN 5 MG TABLET PO ×2 (08:59→22:27)
[2023-10-08] MEDS: Juven (unflavored) Packet 1 PACKET PO ×2 (09:00→16:52)
[2023-10-08 12:11] LABS: Bedside Glucose 219 mg/dL (74-106)
[2023-10-08] MEDS: Furosemide 500 MG in Empty Viaflex 50 mL 1 EACH CONT INF (14:39)
[2023-10-08 17:19] LABS: Bedside Glucose 237 mg/dL (74-106)
--- NOTE | 2023-10-08 19:15 | PN.HOSP_ITS ---
Reason for Visit Reason for Visit: Diagnoses Other hereditary and idiopathic neuropathies (10/03/23) Unspecified atrial fibrillation (10/03/23) Heart failure, unspecified (10/03/23) Lymphedema, not elsewhere classified (10/03/23) Cellulitis of left lower limb (10/03/23) Non-pressure chronic ulcer of left calf with fat layer exposed (10/03/23) Subjective Subjective Patient was seen and examined today, he continues to diurese, I believe that he needs continued diuresis he will be reevaluated tomorrow. Patient remains on nasal cannula oxygen at this time Objective Data Objective Data Vital Signs: Vital Signs Temp Pulse Resp BP Pulse Ox O2 Del Method O2 Flow Rate 97.9 F 83 16 118/85 H 96 Nasal Cannula 2 10/08/23 14:00 10/08/23 14:00 10/08/23 14:00 10/08/23 14:00 10/08/23 14:00 10/08/23 14:58 10/08/23 14:58 FiO2 30 10/07/23 23:00 Oxygen Flow Rate (L/min) 2 Oxygen Delivery Method Nasal Cannula Weight: 186 kg Body Mass Index (BMI) 54.1 Intake & Output: Intake and Output for Last 24 Hours 10/06/23 10/07/23 10/08/23 23:59 23:59 23:59 Intake Total 1128.98 / 1128.98 530 / 530 1080 / 1080 Output Total 6750 / 6750 6975 / 6975 4025 / 4025 Balance -5621.02 / -5621.02 -6445 / -6445 -2945 / -2945 Lab / Micro Data 10/05/23 07:52 10/07/23 06:25 Labs: Laboratory Results - last 24 hr 10/07/23 20:41: POC Glucose 235 H 10/08/23 06:40: POC Glucose 179 H 10/08/23 11:48: POC Glucose 219 H 10/08/23 16:50: POC Glucose 237 H Micro: Microbiology 10/04/23 09:35 Blood Culture (Wb) - Arm Right Blood Culture - Preliminary No growth in 48 hours. 10/04/23 10:40 Wound - Leg, Left Gram Stain - Final 10/04/23 10:40 Wound - Leg, Left Wound Culture - Final Enterobacter cloacae complex Staphylococcus aureus Streptococcus group C 10/03/23 07:16 Blood Culture (Wb) - Anticubital Left Blood Culture - Final Beta streptococcus 10/03/23 07:28 Blood Culture (Wb) - Anticubital Right Bacteria Detection (PCR) - Final Strep not Strep pneumo 10/03/23 07:28 Blood Culture (Wb) - Anticubital Right Blood Culture - Final Streptococcus dysgalactiae equ 10/03/23 07:45 Mucosa - Nose SARS-CoV-2, Influenza & RSV (PCR) - Final Radiography Diagnostic Testing: Radiology Impression Foot X-Ray 10/07/23 21:40 IMPRESSION: Normal x-ray examination of the foot. Electronically Signed: Parth Espino MD at 23:06 EDT Reading Location ID and State: [id number] / [place] Tel , Service support , Tibia/Fibula X-Ray 10/07/23 21:40 IMPRESSION: No acute fracture or dislocation. Diffuse soft tissue swelling. Electronically Signed: Parth Espino MD at 23:08 EDT Reading Location ID and State: [id number] / [place] Tel , Service support , Physical Exam Narrative alert, oriented x3 and no apparent distress Constitutional Narrative: Patient is morbidly obese General Appearance: cooperative, well kempt and well developed Orientation / Consciousness: awake, oriented to person, oriented to place and oriented to time HEENT normocephalic and moist oral mucous membranes Eyes PERRL, EOMs intact bilaterally and conjunctivae normal Neck supple, no JVD, thyroid normal and no carotid bruits General: trachea midline Resp normal respiratory effort and clear to auscultation bilaterally Auscultation: Negative for rales, rhonchi or wheezes Cardio S1 normal heart sound, S2 normal heart sound, no murmurs, no rub and no gallops Cardio Narrative: Heart rate and rhythm is irregular GI normal to inspection, nondistended, normoactive bowel sounds, soft to palpation, non-tender and non-distended Extremity Extremity Narrative: Patient has significant edema of both legs, Spenser wraps were not removed for examination of the leg Neuro oriented x3, CN's II-XII intact bilaterally, moves all extremities, no focal motor deficits and no sensory deficits noted Sensorium / Orientation: awake and alert Speech: speech normal Psych affect normal Assessment & Plan Assessment/Plan (1) Non-pressure chronic ulcer of left calf with fat layer exposed: (2) CHF (congestive heart failure): PLAN: Plan 1. Acute heart failure with reduced ejection fraction-patient will need follow- up as an outpatient regarding this, continue IV Lasix, I have increased the patient's spironolactone, he is already on losartan and metoprolol. #2 chronic atrial fibrillation-patient is on amiodarone and metoprolol, he remains on Eliquis #3 acute hypoxic and hypercapnic respiratory failure-patient is currently on low-flow oxygen, pulse ox will be monitored #4 bacteremia secondary to strep, methicillin sensitive Staph aureus, and Enterobacter cloacae-patient is currently on Rocephin, I will change his antibiotic coverage to Cipro #5 type 2 diabetes-patient's blood sugars will be monitored, sliding scale insulin will be administered as needed #6 essential hypertension-patient will remain on his current medications #7 eschar on the lateral aspect of the plantar surface of the left foot-podiatry will see the patient in consultation Total clinical time spent by myself addressing the patient's medical issues, reviewing all of his data, and collaborating with patient's care team: 35 minutes Charges/Coding Visit Charges Inpatient E&M: 96991 Subs Hosp L2
[2023-10-08] MEDS: Atorvastatin Calcium 40 MG Tablet PO (22:27)
[2023-10-08 23:15] LABS: Bedside Glucose 235 mg/dL (74-106)
[2023-10-09] VITALS (7 sets, daily range): BP systolic 109–119; BP diastolic 64–74; PULSE 82–89; RESP 12–19; TEMP 36.6; O2SAT 86–96; BMI 53.9
[2023-10-09] MEDS: oxyCODONE 5 MG Tablet PO (05:40)
[2023-10-09] MEDS: Insulin Lispro 100 UNIT/ML INSULN.PEN SC ×2 (06:34→11:09)
[2023-10-09 06:59] LABS: Bedside Glucose 175 mg/dL (74-106)
[2023-10-09 07:54] LABS: Anion Gap 6 (5-15); BUN 41 mg/dL (7-18); BUN/Creat Ratio 30.6 RATIO (10-20); Calcium,Total 9.4 mg/dL (8.5-10.1); Chloride 84 mmol/L (98-107); Creatinine, Serum 1.34 mg/dL (0.70-1.30); EST Glomerular Filtration Rate 60 mL/min (>60); Est Glom Filt Rate - Afr Amer 72 mL/min (>60); Glucose 177 mg/dL (74-106); Potassium 3.4 mmol/L (3.5-5.1); Sodium Level 131 mmol/L (136-145)
[2023-10-09] MEDS: Lactulose 20 GM/30 ML UDC 10 GM PO (09:42)
[2023-10-09] MEDS: Potassium Chloride Oral Tablet 20 MEQ PO (09:42)
[2023-10-09] MEDS: APIXABAN 5 MG TABLET PO (09:42)
[2023-10-09] MEDS: Losartan Potassium 25 MG Tablet PO (09:42)
[2023-10-09] MEDS: Amiodarone 200 MG Tablet PO (09:42)
[2023-10-09] MEDS: Juven (unflavored) Packet 1 PACKET PO (09:43)
[2023-10-09] MEDS: Metoprolol Tartrate 25 MG Tablet PO (09:43)
[2023-10-09] MEDS: Spironolactone 25 MG Tablet PO (09:43)
[2023-10-09] MEDS: Cefdinir 300 MG Capsule PO (09:43)
[2023-10-09 11:43] LABS: Bedside Glucose 259 mg/dL (74-106)
--- NOTE | 2023-10-09 12:24 | PCM.DC ---
Discharge Instructions Diet Discharge Diet: 1800 Calorie Control Diet Activity Discharge Activity: Return to Normal Activity Weight Bearing Status: Full weight bearing Follow Up Care Test Results: Test results from this visit will be discussed in further detail at your follow-up appointment, if applicable. Discharge Plan Admission Admit Date/Time: 10/03/23 12:27 Primary Reason for Your Visit: hypoxia, CHF Attending Provider: Jonathan Rocha Primary Care Provider: Care Physician,No Primary Consulting Providers: Ronnie Kumar; Karl Pike Instructions Additional Instructions / Restrictions: Wear oxygen at 2 L/min at all times Discharge Orders/Prescriptions Prescriptions: New atorvastatin 40 mg Tablet 40 mg PO QHS Qty: 30 0RF amiodarone 200 mg Tablet 200 mg PO DAILY Qty: 30 0RF spironolactone 25 mg Tablet 25 mg PO DAILY Qty: 30 0RF potassium chloride 20 mEq Tablet,Er Particles/Crystals 20 meq PO BIDCM Qty: 60 0RF losartan 25 mg Tablet 25 mg PO DAILY Qty: 30 0RF cefdinir 300 mg Capsule 300 mg PO Q12 Qty: 5 0RF metoprolol tartrate 25 mg Tablet 25 mg PO BID Qty: 60 0RF glimepiride 2 mg tablet 4 mg PO DAILY Qty: 60 0RF furosemide [Lasix] 40 mg tablet 40 mg PO BID Qty: 60 0RF Continued Eliquis 5 mg tablet 5 mg PO BID Patient Comments: pt states that his [facility] and that's how he gets his meds. pt states that md did prescribe med for him, but he cannot afford meds. furosemide 40 mg tablet 40 mg PO BID Qty: 60 0RF Changed glimepiride 2 mg tablet 4 mg PO DAILY Qty: 60 0RF Discontinued atorvastatin 40 mg tablet 40 mg PO QHS amiodarone 200 mg tablet 200 mg PO BID spironolactone 25 mg tablet 12.5 mg PO DAILY losartan 25 mg tablet 25 mg PO DAILY metoprolol succinate 25 mg tablet extended release 24 hr 25 mg PO DAILY Referrals / Follow Up: Loida Calix [Non-Staff] - See Referral Note (Call for an appointment to be seen in 2 to 3 weeks) Care Physician,No Primary [Primary Care Provider] - Disposition Disposition (needs filled in before D/C Order can be placed): Home, Self Care
--- NOTE | 2023-10-09 12:52 | DS.PCM_ITS ---
Providers Date of Admission: 10/03/23 Date of Discharge: 10/09/23 Primary Care Physician: Sana Primary Care Phys Consultations 10/03/23 13:58 Consult: Onc/Wound/renovator machine operator Routine Comment: Reason for Consult:: wound inner left leg 10/07/23 11:22 Consult: Podiatry Routine Consulting Provider: Karl Pike Reason for Consult: possible left foot abscess, left leg cellulitis EMERGENT Consult: No MD Notified: Yes Date Notified: 10/07/23 Time Notified: 11:22 Method of Notification: Text Reason For Visit: CHF Diagnosis Discharge Diagnosis (1) Non-pressure chronic ulcer of left calf with fat layer exposed: Status: Chronic Code(s): L97.222 - Non-pressure chronic ulcer of left calf with fat layer exposed (2) CHF (congestive heart failure): Status: Acute Code(s): I50.9 - Heart failure, unspecified Plan 1. Acute heart failure with reduced ejection fraction-patient will need follow- up as an outpatient regarding this, continue IV Lasix, I have increased the patient's spironolactone, he is already on losartan and metoprolol. #2 chronic atrial fibrillation-patient is on amiodarone and metoprolol, he remains on Eliquis #3 acute hypoxic and hypercapnic respiratory failure-patient is currently on low-flow oxygen, pulse ox will be monitored #4 bacteremia secondary to strep, methicillin sensitive Staph aureus, and Enterobacter cloacae-patient is currently on Rocephin, I will change his antibiotic coverage to Cipro #5 type 2 diabetes-patient's blood sugars will be monitored, sliding scale insulin will be administered as needed #6 essential hypertension-patient will remain on his current medications #7 eschar on the lateral aspect of the plantar surface of the left foot-podiatry will see the patient in consultation #8 cellulitis of the right leg Total clinical time spent by myself addressing the patient's medical issues, reviewing all of his data, and collaborating with patient's care team: 35 minutes Medications at Discharge Home Medications apixaban 5 mg tablet (Eliquis) 5 mg PO BID blood thinner 10/03/23 amiodarone 200 mg tablet 200 mg PO DAILY #30 tabs 10/09/23 atorvastatin 40 mg tablet 40 mg PO QHS #30 tabs 10/09/23 cefdinir 300 mg capsule 300 mg PO Q12 #5 caps 10/09/23 furosemide 40 mg tablet 40 mg PO BID #60 tabs 10/09/23 furosemide 40 mg tablet (Lasix) 40 mg PO BID #60 tabs 10/09/23 glimepiride 2 mg tablet 4 mg (2 x 2 mg) PO DAILY #60 tabs 10/09/23 glimepiride 2 mg tablet 4 mg (2 x 2 mg) PO DAILY #60 tabs 10/09/23 losartan 25 mg tablet 25 mg PO DAILY #30 tabs 10/09/23 metoprolol tartrate 25 mg tablet 25 mg PO BID #60 tabs 10/09/23 potassium chloride 20 mEq tablet,extended release(part/cryst) 20 meq PO BIDCM #60 tabs 10/09/23 spironolactone 25 mg tablet 25 mg PO DAILY #30 tabs 10/09/23 Hospital Course Operations None Procedures 2-D Echocardiogram Summary of Care Provided Minutes Spent on Discharge: 32 Hospital Course: This 48-year-old white male was seen in the emergency room at [facility] with complaints of severe edema in his lower legs. Patient not been compliant with medications at home and had not been to a doctor in quite some time. Patient had been cutting back on his medications and attempt to make them last longer since he had not seen a physician. Patient's lower legs appear to be very edematous and there were signs of lymphedema noted, the right leg was reddened and warm. Patient's beta natruretic peptide was elevated, chest x-ray showed evidence of CHF. Patient was admitted to PCU, he was placed on IV diuresis and had an echocardiogram performed which showed a reduced EF of 35%. Patient also had a positive blood culture-it was theorized that perhaps this was secondary to cellulitis in his right leg. Patient was treated with antibiotics, he underwent vigorous diuresis and was seen by the wound care nurse, his leg edema lessened. Patient was also seen in consultation by podiatry for an eschar on the patient's foot, it was not recommended that any surgery before performed however. On 10/09/2023, patient was seen and examined: On examination he appeared in good health and spirits. Vital signs as documented. Skin warm and dry and without overt rashes. Neck without JVD, neck was supple, trachea midline, thyroid was normal. Lungs clear bilaterally, normal air movement was noted. Heart exam notable for irregular rhythm, normal sounds and absence of murmurs, rubs or gallops. Abdomen unremarkable and without evidence of organomegaly, masses, or abdominal aortic enlargement. Bowel sounds are present, abdomen is not disten ded. Extremities edematous, no cyanosis was noted, no clubbing was noted. Neuro: Cranial nerves II through XII are grossly intact, no focal motor deficits were noted, sensation to light touch and pinprick intact, motor exam 5/5 throughout. Psych: Patient is alert and oriented x3, he does not appear anxious or depressed, he does not appear agitated. Patient was discharged home in stable condition on 10/09/2023. Weight / BMI Weight Weight: 185.4 kg Body Mass Index (BMI) 53.9 ABG / Lab / Microbiology Data 10/05/23 07:52 10/09/23 05:45 Laboratory: Laboratory Results - last 24 hr 10/08/23 16:50: POC Glucose 237 H 10/08/23 22:25: POC Glucose 235 H 10/09/23 05:45: Sodium 131 L, Potassium 3.4 L, Chloride 84 L, Carbon Dioxide 41.0 H, Anion Gap 6, BUN 41 H, Creatinine 1.34 H, Estim Creat Clear Calc 113.90, Est GFR (MDRD) Af Amer 72, Est GFR (MDRD) Non-Af 60, BUN/Creatinine Ratio 30.6 H , Glucose 177 H, Calcium 9.4 10/09/23 06:31: POC Glucose 175 H 10/09/23 11:08: POC Glucose 259 H Microbiology: Microbiology 10/04/23 09:35 Blood Culture (Wb) - Arm Right Blood Culture - Final No growth in 5 days. 10/04/23 10:40 Wound - Leg, Left Gram Stain - Final 10/04/23 10:40 Wound - Leg, Left Wound Culture - Final Enterobacter cloacae complex Staphylococcus aureus Streptococcus group C 10/03/23 07:16 Blood Culture (Wb) - Anticubital Left Blood Culture - Final Beta streptococcus 10/03/23 07:28 Blood Culture (Wb) - Anticubital Right Bacteria Detection (PCR) - Final Strep not Strep pneumo 10/03/23 07:28 Blood Culture (Wb) - Anticubital Right Blood Culture - Final Streptococcus dysgalactiae equ 10/03/23 07:45 Mucosa - Nose SARS-CoV-2, Influenza & RSV (PCR) - Final D/C Instructions Discharge Diet: 1800 Calorie Control Diet Weight Bearing Status: Full weight bearing Meaningful Use Info Meaningful Use Meaningful Use Diagnoses (Choose all that apply): CHF CHF WON/ARB ordered at discharge?: Yes Documented LVEF (%): 35 Ischemic Stroke Statin Dosing Therapy Reference: STATIN DOSE THERAPY REFERENCE: * Patients > 75 years receive moderate or high dose statin therapy. * Patients 75 years or YOUNGER should receive HIGH intensity statin dose unless contraindicated. You will be required to document reason for non-treatment if statin daily dose does not meet guidelines. HIGH DOSE STATIN THERAPY DAILY Atorvastatin > than or = to 40 mg Rosuvastatin > than or = to 20 mg Amlodipine + Atorvastatin > than or = to 2.5/40 mg Ezetimibe + Simvastatin 10/80 mg Simvastatin 80mg Discharge Plan Admission Admit Date/Time: 10/03/23 12:27 Primary Reason for Your Visit: hypoxia, CHF Attending Provider: Jonathan Rocha Primary Care Provider: Care Physician,No Primary Consulting Providers: Ronnie Kumar; Karl Pike Instructions Additional Instructions / Restrictions: Wear oxygen at 2 L/min at all times Discharge Orders/Prescriptions Prescriptions: New atorvastatin 40 mg Tablet 40 mg PO QHS Qty: 30 0RF amiodarone 200 mg Tablet 200 mg PO DAILY Qty: 30 0RF spironolactone 25 mg Tablet 25 mg PO DAILY Qty: 30 0RF potassium chloride 20 mEq Tablet,Er Particles/Crystals 20 meq PO BIDCM Qty: 60 0RF losartan 25 mg Tablet 25 mg PO DAILY Qty: 30 0RF cefdinir 300 mg Capsule 300 mg PO Q12 Qty: 5 0RF metoprolol tartrate 25 mg Tablet 25 mg PO BID Qty: 60 0RF glimepiride 2 mg tablet 4 mg PO DAILY Qty: 60 0RF furosemide [Lasix] 40 mg tablet 40 mg PO BID Qty: 60 0RF Continued Eliquis 5 mg tablet 5 mg PO BID Patient Comments: pt states that his [facility] and that's how he gets his meds. pt states that md did prescribe med for him, but he cannot afford meds. furosemide 40 mg tablet 40 mg PO BID Qty: 60 0RF Changed glimepiride 2 mg tablet 4 mg PO DAILY Qty: 60 0RF Discontinued atorvastatin 40 mg tablet 40 mg PO QHS amiodarone 200 mg tablet 200 mg PO BID spironolactone 25 mg tablet 12.5 mg PO DAILY losartan 25 mg tablet 25 mg PO DAILY metoprolol succinate 25 mg tablet extended release 24 hr 25 mg PO DAILY Referrals / Follow Up: Loida Calix [Non-Staff] - 11/14/23 11:00 am Care Physician,No Primary [Primary Care Provider] - Disposition Disposition (needs filled in before D/C Order can be placed): Home, Self Care Charges/Coding Visit Charges Inpatient E&M: 58018 Disch Hosp >30min
--- NOTE | 2023-10-09 13:05 | CASEMGMT ---
Patient was approved for presumptive Medicaid. His Medicaid number is: [id number]. STEPH wrote down this number for patient and explained he can use it to obtain his prescriptions and oxygen etc. Patient thanked STEPH. STEPH will notify RN CM as well. Ama Cesar LINE SERVICE SUPERVISOR ELIZABETH
--- NOTE | 2023-10-09 13:13 | WOUNDNOTE ---
Removed WON wraps and dressings from bilateral lower legs and feet for Dr Perez to assess. no drainage noted today. patient asking that the wraps stay off so he can shower when he gets home. pt will have family reapply the WON wraps after his shower. pt denies further needs at this time.
--- NOTE | 2023-10-09 14:29 | CASEMGMT ---
Patient has order for discharge. Patient will need oxygen at discharge. RN CM in to discuss with patient. Patient states he has no preferences for DME agency and after review of agencies agreeable to [employer]. Script received and referral sent via [employer], oxygen tank supplied from [employer]. Patient aware to get established with PCP and has lists provided. Patient denies further needs or help at discharge. Patient had no further questions or concerns.
== END 2023-10-09 15:43 | disposition home or self-care (01) | DRG 291 ==
LOC: ED 11:05 → PCU 12:50
PROVIDERS: Emergency Provider Emergency Medicine; Visit Provider Internal Medicine
DX: I11.0 Hypertensive heart disease with heart failure (principal); J96.01 Acute respiratory failure with hypoxia; I50.21 Acute systolic (congestive) heart failure; J96.02 Acute respiratory failure with hypercapnia; R78.81 Bacteremia; E87.29 Other acidosis; L03.115 Cellulitis of right lower limb; L03.116 Cellulitis of left lower limb; I48.20 Chronic atrial fibrillation, unspecified; Z68.43 Body mass index [BMI] 50.0-59.9, adult; L97.222 Non-pressure chronic ulcer of left calf with fat layer exposed; G60.9 Hereditary and idiopathic neuropathy, unspecified; E11.59 Type 2 diabetes mellitus with other circulatory complications; J44.9 Chronic obstructive pulmonary disease, unspecified; E66.01 Morbid (severe) obesity due to excess calories; I48.91 Unspecified atrial fibrillation; I16.0 Hypertensive urgency; E78.5 Hyperlipidemia, unspecified; I87.2 Venous insufficiency (chronic) (peripheral); I89.0 Lymphedema, not elsewhere classified; B95.5 Unspecified streptococcus as the cause of diseases classified elsewhere; Z87.891 Personal history of nicotine dependence; Z79.84 Long term (current) use of oral hypoglycemic drugs; M62.81 Muscle weakness (generalized); Z79.01 Long term (current) use of anticoagulants; B95.61 Methicillin susceptible Staphylococcus aureus infection as the cause of diseases classified elsewhere
CPT/HCPCS: 36415; 36600; 51702; 71045; 71275; 73590; 73630; 74177; 80048; 80053; 80076; 81001; 82803; 82962; 83605; 83690; 83880; 84443; 84484; 85025; 85610; 85730; 87040; 87070; 87077; 87149; 87186; 87205; 87631; 93005; 93306; 94002; 94003; 94640; 94762; 97802; 97803; 99285; J7040; Q9957; Q9967; A4216; C8929; J1940

== ENCOUNTER 2024-03-13 20:06 | Inpatient (IN) | payer MEDICAID, SELFPAY ==
[2024-03-13 19:12] VITALS: BMI 43.7
[2024-03-13 19:31] VITALS: BP 114/78; PULSE 67; RESP 18; TEMP 36.8; O2SAT 96
--- NOTE | 2024-03-13 19:56 | PCM.HP.STD ---
[facility] - General General Date of Admission: 03/13/24 Date of Service: 03/13/24 Chief Complaint: DFU of the Left First Toe and Severe Erythema & Edema of the LLE. EDITH BROCK, is a 48 M with a past medical history of essential hypertension, hyperlipidemia, morbid obesity; with a BMI of 43.8 this admission, DM-2; uncontrolled with hyperglycemia on Trulicity, diabetic neuropathy, history of tobacco abuse; with subsequent COPD, chronic atrial fibrillation; on Eliquis, history of cardioversion (2020), history of systolic CHF; with recovered LVEF, chronic lower extremity edema, CKD; stage III and osteoarthritis who presents to [facility] after being transferred from [facility] for diabetic foot ulcer of the Left first toe and severe erythema and edema of the Left lower extremity. Mr. Gupta reports his symptoms began approximately 2 weeks ago with a small, chronic blood blister that eventually ulcerated and expanded since that time with copious drainage of foul-smelling material and blackish discoloration of the toe consistent with developing gangrene since that time. He then went to [facility] and was noted to have strong visual evidence of osteomyelitis on x-ray examination with a corresponding C-reactive protein of 10 and erythrocyte sedimentation rate of 77. He was then treated with IV vancomycin and Zosyn in preparation for patient to be sent here to be seen by podiatry with likely need for amputation and long-term antibiotics. He denies a history of previous amputations and he understands he will likely need to have his Left great toe amputated. There is no report of fever, chills, nausea, vomiting, diarrhea or constipation and he was then admitted to the general medical floor for ongoing care for a stay that is expected to be greater than 48 hours. [facility] Medical History (Updated 03/13/24 @ 22:[address] 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 Cellulitis of left lower limb Atrial fibrillation with RVR Hypertensive urgency HTN (hypertension) CHF (congestive heart failure) COPD (chronic obstructive pulmonary disease) Afib Home Medications ?Medication ?Instructions ?Recorded ?Last Taken ?Type apixaban 5 mg tablet (Eliquis) 5 mg PO BID blood thinner 10/03/23 10/02/23 History atorvastatin 40 mg tablet 40 mg PO QHS cholestrol #30 tabs 10/09/23 Unknown Rx furosemide 40 mg tablet 40 mg PO BID diurectic #60 tabs 10/09/23 10/02/23 Rx losartan 25 mg tablet 25 mg PO DAILY bp #30 tabs 10/09/23 Unknown Rx potassium chloride 20 mEq 20 meq PO BIDCM k+ supplement #60 10/09/23 Unknown Rx tablet,extended release(part/cryst) tabs spironolactone 25 mg tablet 25 mg PO DAILY directic #30 tabs 10/09/23 Unknown Rx dulaglutide 0.75 mg/0.5 mL mg subcut .weekly dm 03/13/24 Unknown History subcutaneous pen injector (Trulicity) empagliflozin 25 mg tablet 25 mg PO DAILY dm 03/13/24 Unknown History (Jardiance) metoprolol tartrate 50 mg tablet 50 mg PO BID control heart rate 03/13/24 Unknown Rx #60 tabs Allergy/AdvReac Type Severity Reaction Status Date / Time No Known Allergies Allergy Verified 03/13/24 19:31 Family History Father Heart disease Surgical History History of coronary artery stent placement History of cardiac catheterization Social History Smoking Status: Current every day smoker tobacco type: cigarettes alcohol intake: current alcohol intake frequency: a few times a month substance use type: does not use caffeine: Yes ROS ROS Narrative Review of Systems: Constitutional: Patient denies fever or chills. Eyes: Patient denies visual changes or discharge from eyes. ENT: Patient denies runny nose, sore throat or ear pain. Resp: Patient denies shortness of breath or cough. CV: Patient denies chest pain, palpitations or heart racing. GI: Patient denies abdominal pain, nausea, vomiting, diarrhea or constipation. : Patient denies dysuria or hematuria. MSK: Patient denies arthralgias or myalgias. Psych: Patient denies symptoms of uncontrolled depression or anxiety. Neuro: Patient denies headache, paresthesias or focal neurologic deficits. Allergy: Patient denies lip swelling, tongue swelling or urticaria. Hematology: Patient denies easy bleeding or easy bruisability. Endocrinology: Patient denies polyuria, polydipsia or polyphagia. 14 point review systems otherwise negative except for positives noted above in HPI. Vital Signs Vital Signs Vital Signs: 03/13/24 19:31 Temperature 98.3 F Temperature Source Temporal Pulse Rate 67 Respiratory Rate 18 Blood Pressure 114/78 Blood Pressure Mean 90 Blood Pressure Source Monitor Blood Pressure Position Semi-Fowlers Blood Pressure Location Left Arm Pulse Ox 96 Oxygen Delivery Method Room Air Weight Weight: 331 lb 15.208 oz Body Mass Index (BMI) 43.7 Physical Exam Const alert, oriented x3 and no apparent distress Constitutional Narrative: Morbidly obese with chronically ill appearance. General Appearance: cooperative HEENT normocephalic, head/scalp atraumatic, hearing grossly normal bilaterally and moist oral mucous membranes Eyes PERRL and EOMs intact bilaterally Neck no lymphadenopathy and supple Resp normal respiratory effort, no retractions, no use of accessory muscles and clear to auscultation bilaterally Cardio regular rate and regular rhythm GI normal to inspection, nondistended, normoactive bowel sounds, soft to palpation, non-tender and non-distended GI Narrative: Morbidly obese. Extremity Extremity Narrative: Patient has a large fungating ulceration of the plantar surface of the great toe of his Left foot with weeping and drainage is foul-smelling material noted. Skin Skin Narrative: Patient has a large fungating ulceration of the plantar surface of the great toe of his Left foot with weeping and drainage is foul-smelling material noted. Neuro oriented x3, CN's II-XII intact bilaterally, moves all extremities and no focal motor deficits Sensorium / Orientation: awake, alert, oriented to person, oriented to place and oriented to time Speech: speech normal Psych affect normal Results Medical Records Data Attestation: I reviewed the patient's medical records Lab / Micro Data Attestation: I reviewed the patient's lab results. 03/13/24 20:29 03/13/24 20:29 Assessment & Plan Assessment/Plan (1) Diabetic foot ulcer with osteomyelitis: (2) Gangrene associated with type 2 diabetes mellitus: (3) Cellulitis: QUALIFIERS: Laterality: left Site of cellulitis: extremity Site of cellulitis of extremity: lower extremity Qualified Code(s): L03.116 - Cellulitis of left lower limb (4) Uncontrolled type 2 diabetes mellitus with hyperglycemia: (5) Diabetic neuropathy: QUALIFIERS: Diabetes mellitus complication detail: diabetic polyneuropathy Diabetes mellitus type: type 2 Qualified Code(s): E11.42 - Type 2 diabetes mellitus with diabetic polyneuropathy (6) Chronic atrial fibrillation: (7) Morbid obesity with BMI of 40.0-44.9, adult: (8) COPD (chronic obstructive pulmonary disease): QUALIFIERS: COPD type: unspecified COPD Qualified Code(s): J44.9 - Chronic obstructive pulmonary disease, unspecified PLAN: Plan 1. DFU of the Left Great Toe with radiographic and clinical evidence of Osteomyelitis and Gangrene - Admit to general medical floor. Continue empiric IV Zosyn and IV Vancomycin for this likely polymicrobial infection. Give Tylenol prn for [id number] (level 1-5/10) pain or fever. Give Morphine IV prn for severe (level 6-10/10) pain. Finally, we will consult the emergency communications officer on-call to see this patient on-rounds for further recommendations regarding amputation with help appreciated in advance. 2. Severe LLE Cellulitis in the setting of Chronic Bilateral LE Lymphedema complicating #1 - Continue broad-spectrum antibiotics outlined above. Check d-dimer and doppler of LLE to evaluate for DVT in spite of Eliquis. 3. DM-2; uncontrolled with hyperglycemia on Trulicity plus diabetic neuropathy precipitating #1 & #2 - ADA diet. FSBS q. AC/HS plus SSI. Check HgbA1c to objectively assess quality of diabetic control. 4. Morbid obesity; with a BMI of 43.8 this admission compounding #1 - #3 - Weight loss will be recommended. Check TSH. This complicates his case and may hamper recovery. 5. Essential hypertension - Maintain on current regimen plus give prn IV Hydralazine for systolic blood pressure > 160 mmHg. 6. Hyperlipidemia - Resume statin and check Lipid Profile. 7. History of tobacco abuse; with subsequent COPD - Stable with no evidence of acute flare. Continue nebulizers prn. 8. Chronic atrial fibrillation; on Eliquis with history of cardioversion (2020) - Resume Eliquis as previous. 9. History of systolic CHF; with recovered LVEF - Stable. 10. CKD; stage III - Stable. 11. Osteoarthritis - Give Tylenol prn. 12. DVT prophylaxis - Patient is already on Eliquis for #8 which will be continued for now. Total time: Approximately 75 minutes. Charges/Coding Visit Charges Inpatient E&M: 25792 Init Hosp L3
[2024-03-13 20:55] LABS: Absolute Lymphocyte Count 1.68 X10^3/uL (0.83-4.51); Absolute Neutrophil Count 6.3 X10^3/uL (2.0-7.7); Basophil# 0.07 X10^3/uL; Basophil% 0.8 % (0-1); Eosinophil# 0.24 X10^3/uL; Eosinophils% 2.6 % (0-5); Hematocrit 43.8 % (40-54); Hemoglobin 14.5 g/dL (13.0-16.5); Lymphocyte # 1.68 X10^3/ul (0.83-4.51); Lymphocyte % 18.4 % (19-41); Mean Corp Hgb Conc 33.1 g/dL (32-36); Mean Corpuscular Hgb 28.3 pg (27.0-32.0); Mean Corpuscular Volume 85.5 fL (80-94); Mean Platelet Vol. 8.2 fl (6.2-12.0); Monocyte# 0.83 X10^3/uL; Monocyte% 9.1 % (0-10); NRBC Flagged by Analyzer 0 % (0-5); Neutrophil # 6.27 X10^3/uL (2.7-7.7); Neutrophil % 68.7 % (47-70); Platelet Count 213 K/mm3 (150-450); RBC Distribution Width CV 14.8 % (11.6-14.6); RBC Distribution Width SD 46.8 fl (35.1-43.9); Red Blood Count 5.12 M/mm3 (4.6-6.2); White Blood Count 9.1 K/mm3 (4.4-11.0)
[2024-03-13 20:57] LABS: ALB/GLOB Ratio 0.6 RATIO (0.9-2.4); AST(SGOT) 21 U/L (15-37); Alanine Aminotransfer ALT/SGPT 31 U/L (16-61); Albumin, Serum 3.1 g/dL (3.2-5.0); Alkaline Phosphatase 122 U/L (45-117); Anion Gap 6 (5-15); BUN 33 mg/dL (7-18); BUN/Creat Ratio 17.6 RATIO (10-20); Calcium,Total 9.5 mg/dL (8.5-10.1); Chloride 99 mmol/L (98-107); Creatinine, Serum 1.88 mg/dL (0.70-1.30); EST Glomerular Filtration Rate 40 mL/min (>60); Est Glom Filt Rate - Afr Amer 49 mL/min (>60); Estimated Creatinine Clearance 71.92 ml/min; Globulin 4.8 g/dL (2.2-4.2); Glucose 121 mg/dL (74-106); Potassium 4.1 mmol/L (3.5-5.1); Protein, Total 7.9 g/dL (6.4-8.2); Sodium Level 133 mmol/L (136-145)
[2024-03-13] MEDS: 0.9% Normal Saline (1000mL) 1,000 ML 70 ML IV (21:18)
[2024-03-13] MEDS: APIXABAN 5 MG TABLET PO (21:22)
[2024-03-13 21:23] VITALS: PULSE 67
[2024-03-13] MEDS: Metoprolol Tartrate 50 MG Tablet PO (21:23)
[2024-03-13] MEDS: Atorvastatin Calcium 40 MG Tablet PO (21:23)
[2024-03-13] MEDS: Furosemide 40 MG Tablet PO (21:23)
[2024-03-13 21:26] VITALS: BP 110/68; PULSE 69; RESP 16; TEMP 36.6; O2SAT 97
--- NOTE | 2024-03-13 21:26 | PCM.RX.CS ---
Consult Antibiotic Management Pharmacy has been consulted to manage selected antibiotic: Vancomycin Type of Intervention Type of Consult: New start Suspected Infection Suspected Infection: Osteomyelitis Labs Labs: Sodium 133 mmol/L (136-145) L 03/13/24 20:29 Potassium 4.1 mmol/L (3.5-5.1) 03/13/24 20:29 Chloride 99 mmol/L (98-107) 03/13/24 20:29 Carbon Dioxide 28.0 mmol/L (21.0-32.0) 03/13/24 20:29 Anion Gap 6 (5-15) 03/13/24 20:29 BUN 33 mg/dL (7-18) H 03/13/24 20:29 Creatinine 1.88 mg/dL (0.70-1.30) H 03/13/24 20:29 Est GFR (MDRD) Af Amer 49 mL/min (>60) L 03/13/24 20:29 Est GFR (MDRD) Non-Af 40 mL/min (>60) L 03/13/24 20:29 BUN/Creatinine Ratio 17.6 RATIO (10-20) 03/13/24 20:29 Glucose 121 mg/dL (74-106) H 03/13/24 20:29 Pharmacy Plan for Drug Dosing Pharmacy Plan for Drug Dosing: NEW START IV VANCOMYCIN Consulting Physician: Wolfe Indication: diabetic foot ulcer/osteomyelitis Goal Trough: 15-20 mg/dL SrCr: 1.88 mg/dL CrCl: 71.9 mL/min Comments: Per nurse, initial dose of 1500mg given at outside ER 03/13 @ 1525 Vancomycin Dose: Will start 1750mg Q12 (03/14 @ 0330) and a get a level prior to 4th total dose per policy. Pending Level: 03/15/24 @ 0300 Pharmacy Service will continue to monitor and adjust dosing as required.
[2024-03-13] MEDS: Acetaminophen 325 MG Tablet 650 MG PO (21:35)
[2024-03-13] MEDS: MELATONIN 3 MG TABLET PO (21:35)
[2024-03-13] MEDS: Lactobacillis Acidophilus 1 CAP PO (21:36)
[2024-03-13] MEDS: Insulin Lispro 100 UNIT/ML INSULN.PEN SC (21:46)
[2024-03-13] MEDS: Piperacil/Tazobactam 3.375 GM in 0.9% Normal Saline (50mL MB+) 50 ML IV (21:46)
--- NOTE | 2024-03-13 22:23 | VDLE_ITS ---
Reason For Study: Elevated D Dimer RIGHT LEFT GSV is normal. GSV is normal. CFV is compressible, spontaneous, phasic, CFV is compressible, spontaneous, phasic, competent and demonstrates normal competent, and demonstrates normal augmentation. augmentation. FV is compressible, spontaneous, phasic, FV is compressible, spontaneous, phasic, competent and demonstrates normal competent and demonstrates normal augmentation. augmentation. POP V is compressible, spontaneous, phasic, POP V is compressible, spontaneous, phasic, competent and demonstrates normal competent and demonstrates normal augmentation. augmentation. T/P Trunk is compressible. T/P Trunk is compressible. PTV is compressible. PTV is compressible. RT PerV is compressible. LT PerV is compressible. Procedure This is a venous duplex using B-mode, color flow and spectral Doppler. Exam performed portable in patient room. The exam was diagnostic. A preliminary report was called and/or faxed to m/s 3 wood planer. VL/Venous Duplex US - Brendon Extrem Interpretation Summary Deep veins of the lower extremities are bilaterally patent and compressible seg mentally. There is no evidence of deep vein thrombosis on either side. Valvular competence appears in tact within the proximal deep venous systems bilaterally. The great saphenous veins appear bila terally patent and compressible segmentally. Ordering Physician: Elbert Wolfe Performed By: Rodri Prajapati RVT
[2024-03-13 23:35] LABS: Bedside Glucose 162 mg/dL (74-106)
[2024-03-13 23:39] LABS: BNP,B-Type NATRIURETIC PEPTIDE 37.3 pg/mL (0-100)
[2024-03-14 02:57] VITALS: BP 118/77; PULSE 55; RESP 16; TEMP 36.2; O2SAT 97
[2024-03-14] MEDS: Vancomycin HCl 1,750 MG in 0.9% Normal Saline (500mL Bag) 500 ML 250 MG IV ×2 (03:00→15:48)
[2024-03-14 04:46] VITALS: BMI 43.7
[2024-03-14 05:54] LABS: Anion Gap 2 (5-15); BUN 33 mg/dL (7-18); BUN/Creat Ratio 16.3 RATIO (10-20); Calcium,Total 9.4 mg/dL (8.5-10.1); Chloride 101 mmol/L (98-107); Creatinine, Serum 2.03 mg/dL (0.70-1.30); EST Glomerular Filtration Rate 37 mL/min (>60); Est Glom Filt Rate - Afr Amer 45 mL/min (>60); Estimated Creatinine Clearance 66.59 ml/min; Glucose 125 mg/dL (74-106); Magnesium 2.4 mg/dL (1.6-2.6); Potassium 4.8 mmol/L (3.5-5.1); Sodium Level 136 mmol/L (136-145)
--- NOTE | 2024-03-14 06:19 | PCM.PN.HOSP ---
Reason for Visit Reason for Visit: Left foot wound Subjective Subjective Patient is a 48-year-old female who presents to the emergency department at [facility] on 03/13/2024 with the chief complaint of left hallux erythema, edema and diabetic foot wound. She was transferred from [facility] for diabetic foot ulcer of the Left first toe and severe erythema and edema of the Left lower extremity. Evidently, her symptoms started about 2 weeks ago with a small blood blister that eventually ulcerated and expanded. Since that time she has developed significant amount of drainage that has been foul-smelling with blackish discoloration of the toe consistent with developing gangrene. Given that she went to the emergency department down at [facility] and there was suspicion for osteomyelitis on the x-ray with corresponding elevated CRP of 10 and ESR of 77. She was given IV vancomycin and Zosyn and transferred here. She was admitted to the medical floor where she was maintained on IV antibiotics and consultation to podiatry was placed. Patient states he is feeling okay at this time. Not having any current. Indicated that the wound started as a blood blister from his shoe slowly worsened to the point where it had eschar covering and that is healing however then ruptured open with pus and foul-smelling drainage. Objective Data Objective Data Vital Signs: Vital Signs Temp Pulse Resp BP Pulse Ox O2 Del Method 97.2 F L 55 L 16 118/77 97 Room Air 03/14/24 02:57 03/14/24 02:57 03/14/24 02:57 03/14/24 02:57 03/14/24 02:57 03/14/24 02:57 Oxygen Delivery Method Room Air Weight: 150.52 kg Body Mass Index (BMI) 43.7 Intake & Output: Intake and Output for Last 24 Hours 03/12/24 03/13/24 03/14/24 23:59 23:59 23:59 Intake Total 450 / 450 Balance 450 / 450 Lab / Micro Data 03/13/24 20:29 03/14/24 05:05 Labs: Laboratory Results - last 24 hr 03/13/24 20:29: WBC 9.1, RBC 5.12, Hgb 14.5, Hct 43.8, MCV 85.5, MCH 28.3, MCHC 33.1, RDW Std Deviation 46.8 H, RDW Coeff of Darshan 14.8 H, Plt Count 213, MPV 8.2, Immature Gran % (Auto) 0.400, Neut % (Auto) 68.7, Lymph % (Auto) 18.4 L, Stafford % (Auto) 9.1, Eos % (Auto) 2.6, Baso % (Auto) 0.8, Absolute Neuts (auto) 6.3, Absolute Lymphs (auto) 1.68, Nucleated RBC % 0, Sodium 133 L, Potassium 4.1, Chloride 99, Carbon Dioxide 28.0, Anion Gap 6, BUN 33 H, Creatinine 1.88 H, Estim Creat Clear Calc 71.92, Est GFR (MDRD) Af Amer 49 L, Est GFR (MDRD) Non-Af 40 L, BUN/Creatinine Ratio 17.6, Glucose 121 H, Calcium 9.5, Total Bilirubin 1.10 H, AST 21, ALT 31, Alkaline Phosphatase 122 H, Total Protein 7.9, Albumin 3.1 L, Globulin 4.8 H, Albumin/Globulin Ratio 0.6 L 03/13/24 21:34: POC Glucose 162 H 03/13/24 23:15: D-Dimer Quant (PE/DVT) 1.40 H*, B-Natriuretic Peptide 37.3 03/14/24 05:05: Sodium 136, Potassium 4.8, Chloride 101, Carbon Dioxide 33.0 H, Anion Gap 2 L, BUN 33 H, Creatinine 2.03 H, Estim Creat Clear Calc 66.59, Est GFR (MDRD) Af Amer 45 L, Est GFR (MDRD) Non-Af 37 L, BUN/Creatinine Ratio 16.3, Glucose 125 H, Calcium 9.4, Phosphorus 5.0 H, Magnesium 2.4, TSH 3.660 Physical Exam Const alert, oriented x3, no apparent distress and well nourished; Negative for average body habitus or healthy appearing Constitutional Narrative: Morbidly obese, middle-aged, white male, sitting up in bed watching television, appears comfortable, nontoxic HEENT head/scalp atraumatic and moist oral mucous membranes HEENT Narrative: Mallampati 4, no thrush Head and Scalp: normocephalic Eyes PERRL, EOMs intact bilaterally and conjunctivae normal Eyes Narrative: No scleral icterus Neck no lymphadenopathy and supple Neck Narrative: Neck is short and thick, trachea midline Resp normal respiratory effort, no retractions, no use of accessory muscles and clear to auscultation bilaterally Resp Narrative: Breath sounds are distant due to body habitus but clear Auscultation: Negative for rales, rhonchi or wheezes Cardio regular rate, regular rhythm, S1 normal heart sound, S2 normal heart sound, no murmurs, no rub, no gallops and no clicks Cardio Narrative: Distant heart tones due to body habitus GI normal to inspection, nondistended, normoactive bowel sounds, soft to palpation and non-tender GI Narrative: Large protuberant abdomen Extremity Extremity Narrative: Left lower extremity edema noted with some erythema up into the left calf to about the mid calf area, left lower extremity with dressing in place, right lower extremity unremarkable, no clubbing or cyanosis Neuro oriented x3, moves all extremities and No no sensory deficits noted Neuro Narrative: Mild decrease sensation bilateral lower extremities distally Speech: speech normal Psych affect normal Psych Narrative: Very pleasant, eye contact is good and patient interacts appropriately Assessment & Plan Assessment/Plan (1) Diabetic infection of left foot: (2) Elevated d-dimer: (3) CKD stage 3b, GFR 30-44 ml/min: (4) ARAM (acute kidney injury): PLAN: Plan Left great toe diabetic foot infection-suspect OM/left lower extremity cellulitis -Check MRI of foot without contrast due to renal dysfunction -Continue antibiotics with vancomycin and Zosyn for now but may need to alter given worsening renal function -Continue Tylenol as needed -Start oxycodone -Continue IV for breakthrough medication but transition from morphine to Dilaudid due to renal dysfunction -Podiatry consult pending Left lower extremity edema/elevated D-dimer -D-dimer was elevated despite use of Eliquis -D-dimer elevation may be the result of infection however given elevation will need to rule out DVT so ultrasound pending of lower extremity -Suspicion is overall low for DVT on Eliquis -Will need to hold Eliquis so if she does have a DVT will need to start heparin drip ARAM on CKD stage IIIb -Baseline renal function appears to run between 1.3 and 1.6 -Creatinine is now up to 2.03 -The patient is on fluids and diuretics -Will discontinue fluids for now and continue diuretics for now however may need to alter depending on urine studies -Hold home losartan/Aldactone -Check UA/check urine sodium, urine creatinine, and urine urea -Check retroperitoneal ultrasound -If any sign of retention start Nice DM-2 -Hemoglobin A1c in 6.8 -Blood sugar this morning was only 125 -Restart home Jardiance -Hold home Trulicity -Monitor for basal insulin needs -SSI -Accu-Cheks as ordered -Cardiac/carb controlled diet if no plans for OR today Chronic HFrEF -Suspected to be related to ischemic cardiomyopathy -patient on room air -Echocardiogram from 10/07/2023 shows an EF of 35% with mild biatrial dilation and global dysfunction -Continue goal-directed therapy as able but will have to hold losartan for now -Continue diuretics for the time being but may need to reevaluate once I have more data back on renal dysfunction -Continue metoprolol -Hold Aldactone -Continue Jardiance CAD/essential HTN/HPL -Cardiac catheterization February 2021 demonstrated diffuse left main trunk disease and proximal LAD stent was widely patent, patent stent in the first major diagonal branch and a patent stent in the circumflex with 60% distal stenosis of the OM1 and 50% stenosis in the OM 2. RCA had 70% proximal stenosis and 50% mid vessel stenosis with diffuse disease and chronic total occlusion at the distal vessel, PDA had limited collateral flow from the third septal compliance professional to the distal right coronary artery and the right coronary artery posterior lateral branch had collateral flow from the distal circumflex -Plan at that time was medical treatment -Hold losartan -Hold Aldactone -Continue metoprolol -Continue atorvastatin -As needed hydralazine for systolic pressure greater than 150 PAF -Continue beta-ralph -Continue Eliquis for now -Patient had previously been on amiodarone which has subsequently been discontinued COPD -Add as needed DuoNebs -Add I-S Tobacco abuse -Recommend cessation -Will add nicotine replacement therapy if patient desires Morbid obesity -BMI 43.8 -Recommend weight loss -Complicates treatment, prognosis, outcomes DVT prophylaxis -Start subcu heparin 5000 units 3 times daily -Stop Eliquis now in preparation for OR CODE STATUS -Full code Charges/Coding Visit Charges Inpatient E&M: 21211 Subs Hosp L2
[2024-03-14] MEDS: Piperacil/Tazobactam 3.375 GM in 0.9% Normal Saline (50mL MB+) 50 ML IV ×3 (06:20→21:50)
[2024-03-14] MEDS: Acetaminophen 325 MG Tablet 650 MG PO (06:24)
--- NOTE | 2024-03-14 06:24 | US_ITS ---
STUDY: RENAL ULTRASOUND - COMPLETE REASON FOR EXAM: Male, 48 years old. ARAM TECHNIQUE: Ultrasound evaluation of the kidneys was performed with real-time and static umaña-scale imaging. COMPARISON: None. FINDINGS: RIGHT KIDNEY: Normal location of the right kidney, which is normal in size. The right kidney measures 12.7 cm x 6 cm x 6.7 cm. There is a normal cortex of the right kidney. The renal cortex measures 1.9 cm. There is no right renal mass or cyst. There are no right renal calculi. There is no right hydronephrosis. DISTAL RIGHT URETER: There is non-visualization of the distal right ureter. There is no demonstrated right ureterovesical junction calculus. There is a visualized right ureteral jet. LEFT KIDNEY: Normal location of the left kidney, which is normal in size. The left kidney measures 11.5 cm x 4.9 cm x 4.9 cm. There is a normal cortex of the left kidney. The renal cortex measures 1.9 cm. There is no left renal mass or cyst. There are no left renal calculi. There is no left hydronephrosis. DISTAL LEFT URETER: There is non-visualization of the distal left ureter. There is no demonstrated left ureterovesical junction calculus. There is a visualized left ureteral jet. BLADDER: The bladder was not adequately distended for adequate visualization. US/Kidney and Bladder IMPRESSION: Normal ultrasound of the kidneys. Electronically Signed: Quinton Gonzalez MD at 12:08 EDT ,
--- NOTE | 2024-03-14 06:26 | MRI_ITS ---
INDICATION: OM -- no contrast due to renal dysfunction EXAMINATION: MRI - LEFT MR Forefoot W/O Contrast TECHNIQUE: Multiplanar and multisequence MR images of the LEFT foot without contrast. IV Contrast Dosage and Agent: None. COMPARISON: Foot radiograph October 07, 2023. FINDINGS: SOFT TISSUES: Extensive soft tissue edema about the first digit with plantar medial soft tissue ulceration. No gross subcutaneous emphysema. BONE: Intraosseous edema first proximal and distal phalanx with focal 4 mm T1 signal loss along the plantar medial mid distal phalanx, axial T1 series 6 image 29.. JOINTS: Normal alignment. No joint effusion. MUSCLES: Normal bulk and signal. LIGAMENTS: The Lisfranc ligament is intact. TENDONS: The flexor and extensor tendons are intact without gross tenosynovitis. MISCELLANEOUS: Intact plantar fascia. MRI/Lower Ext/No Jt/w/o IMPRESSION: First digit cellulitis with plantar medial ulceration and underlying early osteomyelitis in the medial distal phalanx. Reactive marrow edema throughout the remainder of the first distal phalanx and first proximal phalanx. Electronically Signed: Quang Hinton MD at 3:05 EDT ,
[2024-03-14 06:44] LABS: Bedside Glucose 129 mg/dL (74-106)
[2024-03-14 07:49] LABS: Hemoglobin A1c 6.8 % (3.8-5.6)
[2024-03-14 09:00] VITALS: BP 120/78; PULSE 95; RESP 16; TEMP 36.2; O2SAT 93
[2024-03-14 09:16] LABS: Mucous, Urine 0 SEEN /hpf (<or=2+); Red Blood Cells-Urine 0 SEEN /hpf (0-5); White Blood Cells 0 SEEN /hpf (0-5)
[2024-03-14 09:21] LABS: Color, Urine Yellow (Yellow); Glucose, Dipstick 1000 mg/dl (Normal); Ketone-Dipstick Negative (Negative); Leukocyte Esterase-Dipstick Negative /ul (Negative); Nitrite-Dipstick Negative (Negative); Occult Blood-Urine Negative /ul (Negative); Protein-Dipstick Negative (Negative); Specific Gravity, Urine 1.015 (1.002-1.030); Urine Bilirubin Dipstick Negative (Negative); Urine Clarity Clear (Clear); Urine Urobilinogen Normal (Normal)
[2024-03-14 09:28] LABS: Urine Sodium 78 mmol/L (Not Establ.)
[2024-03-14 09:29] LABS: Urea Nitrogen, Urine 359 mg/dL (NO RANGE EST.)
[2024-03-14 09:50] LABS: Bacteria RARE /hpf (None Seen); Squamous Epithelial Cells - UA 0-5 SEEN /hpf (0-5)
[2024-03-14 10:27] VITALS: PULSE 95
[2024-03-14] MEDS: Potassium Chloride Oral Tablet 20 MEQ PO ×2 (10:27→16:39)
[2024-03-14] MEDS: Lactobacillis Acidophilus 1 CAP PO ×4 (10:27→21:50)
[2024-03-14] MEDS: Furosemide 40 MG Tablet PO ×2 (10:27→16:39)
[2024-03-14] MEDS: Metoprolol Tartrate 50 MG Tablet PO ×2 (10:27→21:50)
[2024-03-14] MEDS: Empagliflozin 25 MG Tablet PO (10:31)
[2024-03-14 11:34] LABS: Bedside Glucose 145 mg/dL (74-106)
[2024-03-14 14:00] VITALS: BP 106/54; PULSE 65; RESP 18; TEMP 36.6; O2SAT 100
[2024-03-14] MEDS: 0.9% Saline Lock 10 ML Syringe IV (14:19)
--- NOTE | 2024-03-14 14:25 | CASEMGMT ---
UZMA BONNER Assessment: Face to Face with pt for initial transition planning/care coordination assessment. UZMA BONNER introduced self and role at [facility], pt voices understanding and consents to assessment. Pt is A&O x4 and answers all questions appropriately at this time. pt sitting up in chair in no distress. Care providers, pharmacy, and demographics verified/updated. Strata: 2 Admitting Dx: Osteomyelitis L toe PCP: Tarun Specialists: Priscila, Pencils Washer Preferred Pharmacy: [facility] Insurance: [facility] Prescription Benefit: yes LNOK: [place] Living Arrangements: Pt lives with daughter in 1 story home with zero steps to enter. ADLs: Pt reports I at home. Transportation: Pt drives self and denies concerns with transportation. DME: Denies HHC/SNF: Denies Hx of. Pt states no concerns with going home at time of dc. Pt states no further concerns/needs. CM to follow. Advised pt to ask CM if any further question/concerns/needs arise, voices understanding. Pt Goal: Home Plan: Home, follow for wound care and plan of care. Segundo GUSMAN CM
[2024-03-14] MEDS: Heparin Injection (Vial) 5,000 UNIT/ML VIAL 5000 UNIT SC ×2 (14:57→21:51)
[2024-03-14] MEDS: Insulin Lispro 100 UNIT/ML INSULN.PEN SC ×2 (16:37→21:55)
[2024-03-14] MEDS: Juven (unflavored) Packet 1 PACKET PO (16:37)
[2024-03-14 17:00] LABS: Bedside Glucose 207 mg/dL (74-106)
[2024-03-14 21:48] VITALS: BP 109/72; PULSE 63; RESP 16; TEMP 36.4; O2SAT 97
[2024-03-14 21:50] VITALS: PULSE 63
[2024-03-14] MEDS: Atorvastatin Calcium 40 MG Tablet PO (21:51)
[2024-03-14 22:31] LABS: Bedside Glucose 157 mg/dL (74-106)
[2024-03-15 03:19] VITALS: BP 115/78; PULSE 61; RESP 16; TEMP 36.4; O2SAT 95
[2024-03-15 03:40] LABS: Anion Gap 5 (5-15); BUN 36 mg/dL (7-18); Calcium,Total 9.6 mg/dL (8.5-10.1); Chloride 100 mmol/L (98-107); EST Glomerular Filtration Rate 43 mL/min (>60); Est Glom Filt Rate - Afr Amer 51 mL/min (>60); Glucose 168 mg/dL (74-106); Magnesium 2.5 mg/dL (1.6-2.6); Phosphorus 4.8 mg/dL (2.5-4.9); Potassium 4.2 mmol/L (3.5-5.1); Sodium Level 135 mmol/L (136-145)
[2024-03-15 03:47] LABS: Vancomycin, Trough Level 27.6 ug/mL (5.0-15.0)
--- NOTE | 2024-03-15 03:54 | PCM.RX.CS ---
Consult Antibiotic Management Pharmacy has been consulted to manage selected antibiotic: Vancomycin Type of Intervention Type of Consult: Follow-up Labs Labs: Sodium 135 mmol/L (136-145) L 03/15/24 03:10 Potassium 4.2 mmol/L (3.5-5.1) 03/15/24 03:10 Chloride 100 mmol/L (98-107) 03/15/24 03:10 Carbon Dioxide 30.0 mmol/L (21.0-32.0) 03/15/24 03:10 Anion Gap 5 (5-15) 03/15/24 03:10 BUN 36 mg/dL (7-18) H 03/15/24 03:10 Creatinine 1.80 mg/dL (0.70-1.30) H 03/15/24 03:10 Est GFR (MDRD) Af Amer 51 mL/min (>60) L 03/15/24 03:10 Est GFR (MDRD) Non-Af 43 mL/min (>60) L 03/15/24 03:10 BUN/Creatinine Ratio 20.0 RATIO (10-20) 03/15/24 03:10 Glucose 168 mg/dL (74-106) H 03/15/24 03:10 Vancomycin Trough 27.6 ug/mL (5.0-15.0) H 03/15/24 03:10 Pharmacy Plan for Drug Dosing Pharmacy Plan for Drug Dosing: VANCOMYCIN LEVEL RECEIVED Current Vancomycin Dose: 1750 MG Q12 Number of Doses Received: 3 Vancomycin Level: 27.6 mg/dl Hours Since Last Dose: 11.5 Renal Function: SCr 1.8 mg/dL, CrCl 75 mL/min Renal Function Trend: stable Lab/Micro: wound cx pending Vancomycin Plan/Comments: 11.5 hour trough is supratherapeutic at 27.6 mg/dl (goal 15-20). Will hold dosing at this time and get a random level in 24 hours. Pending Level: 03/16/24 @ 0300 - random Pharmacy Service will continue to monitor and adjust dosing as required.
[2024-03-15] MEDS: Piperacil/Tazobactam 3.375 GM in 0.9% Normal Saline (50mL MB+) 50 ML IV ×3 (05:57→22:05)
[2024-03-15] MEDS: Heparin Injection (Vial) 5,000 UNIT/ML VIAL 5000 UNIT SC ×3 (05:58→22:05)
[2024-03-15 06:00] VITALS: BMI 43.1
[2024-03-15 06:49] LABS: Bedside Glucose 141 mg/dL (74-106)
[2024-03-15 08:21] VITALS: BP 130/88; PULSE 61; RESP 18; TEMP 36.5; O2SAT 100
[2024-03-15] MEDS: Juven (unflavored) Packet 1 PACKET PO ×2 (08:30→16:20)
[2024-03-15] MEDS: Potassium Chloride Oral Tablet 20 MEQ PO ×2 (08:30→16:21)
[2024-03-15] MEDS: Lactobacillis Acidophilus 1 CAP PO ×4 (08:31→22:06)
[2024-03-15 08:32] VITALS: PULSE 61
[2024-03-15] MEDS: Empagliflozin 25 MG Tablet PO (08:32)
[2024-03-15] MEDS: Metoprolol Tartrate 50 MG Tablet PO ×2 (08:32→22:08)
[2024-03-15] MEDS: Furosemide 40 MG Tablet PO ×2 (08:32→16:23)
--- NOTE | 2024-03-15 08:53 | HP.PCM_ITS ---
[facility] - General General Date of Admission: 03/13/24 Date of Service: 03/15/24 Chief Complaint: DFU of the Left First Toe and Severe Erythema & Edema of the LLE. HPI Narrative LACHO BROCK, is a 48 M who presents complaining of nonhealing left big toe ulcer that first began as a blood blister. Patient states that he goes to the [facility] for his diabetic care and states that his new medications have changed my life. He admits that he noticed that a blood blister started forming on the left big toe and he had no idea it can turn into an ulcer. When it started to smell, he presented to [facility] emergency department. He states that an x-ray was performed there and he was transferred to [facility] for insurance reasons. The patient also states that he would like to try everything to save his toe. The patient states that he really does not want to have amputation. [facility] Medical History (Updated 03/14/24 @ 06:[address] 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 Cellulitis of left lower limb Atrial fibrillation with RVR Hypertensive urgency HTN (hypertension) CHF (congestive heart failure) COPD (chronic obstructive pulmonary disease) Afib Home Medications ?Medication ?Instructions ?Recorded ?Last Taken ?Type apixaban 5 mg tablet (Eliquis) 5 mg PO BID blood thinner 10/03/23 10/02/23 History atorvastatin 40 mg tablet 40 mg PO QHS cholestrol #30 tabs 10/09/23 Unknown Rx furosemide 40 mg tablet 40 mg PO BID diurectic #60 tabs 10/09/23 10/02/23 Rx losartan 25 mg tablet 25 mg PO DAILY bp #30 tabs 10/09/23 Unknown Rx potassium chloride 20 mEq 20 meq PO BIDCM k+ supplement #60 10/09/23 Unknown Rx tablet,extended release(part/cryst) tabs spironolactone 25 mg tablet 25 mg PO DAILY directic #30 tabs 10/09/23 Unknown Rx dulaglutide 0.75 mg/0.5 mL mg subcut .weekly dm 03/13/24 Unknown History subcutaneous pen injector (Trulicity) empagliflozin 25 mg tablet 25 mg PO DAILY dm 03/13/24 Unknown History (Jardiance) metoprolol tartrate 50 mg tablet 50 mg PO BID control heart rate 03/13/24 Unknown Rx #60 tabs Allergy/AdvReac Type Severity Reaction Status Date / Time No Known Allergies Allergy Verified 03/13/24 19:31 Family History Father Heart disease Surgical History History of coronary artery stent placement History of cardiac catheterization Social History Smoking Status: Current every day smoker tobacco type: cigarettes alcohol intake: current alcohol intake frequency: a few times a month substance use type: does not use caffeine: Yes Vital Signs Vital Signs Vital Signs: 03/14/24 09:00 03/14/24 10:27 03/14/24 10:48 Temperature 97.1 F L Temperature Source Oral Pulse Rate 95 95 Pulse Strength Normal (2+) Respiratory Rate 16 Respiratory Effort Respiratory Depth Respiratory Pattern Blood Pressure 120/78 Blood Pressure Mean 92 Blood Pressure Source Monitor Blood Pressure Position Sitting Blood Pressure Location Left Arm Pulse Ox 93 Oxygen Delivery Method Room Air 03/14/24 14:00 03/14/24 21:48 03/14/24 21:50 Temperature 97.9 F 97.6 F L Temperature Source Oral Oral Pulse Rate 65 63 63 Pulse Strength Respiratory Rate 18 16 Respiratory Effort Respiratory Depth Respiratory Pattern Blood Pressure 106/54 L 109/72 Blood Pressure Mean 71 84 Blood Pressure Source Monitor Blood Pressure Position Sitting Blood Pressure Location Left Arm Pulse Ox 100 97 Oxygen Delivery Method Room Air Room Air 03/14/24 22:00 03/14/24 22:05 03/15/24 03:19 Temperature 97.5 F L Temperature Source Oral Pulse Rate 61 Pulse Strength Normal (2+) Respiratory Rate 16 Respiratory Effort Normal Non-Labored Respiratory Depth Normal Respiratory Pattern Normal Blood Pressure 115/78 Blood Pressure Mean 90 Blood Pressure Source Monitor Blood Pressure Position Semi-Fowlers Blood Pressure Location Left Arm Pulse Ox 95 Oxygen Delivery Method Room Air 03/15/24 08:21 03/15/24 08:32 Temperature 97.7 F L Temperature Source Oral Pulse Rate 61 61 Pulse Strength Respiratory Rate 18 Respiratory Effort Respiratory Depth Respiratory Pattern Blood Pressure 130/88 H Blood Pressure Mean 102 Blood Pressure Source Blood Pressure Position Blood Pressure Location Pulse Ox 100 Oxygen Delivery Method Room Air Weight Weight: 147.6 kg Body Mass Index (BMI) 43.1 Physical Exam Narrative Patient complains of a nonpainful diabetic foot wound to the left big toe. He states that after having his diabetic medications changed, he is doing much better and has even lost weight. Const alert, oriented x3 and no apparent distress General Appearance: cooperative and well kempt Orientation / Consciousness: awake, oriented to person, oriented to place and oriented to time Extremity General Extremity: edema bilateral (Lymphedema is present bilaterally with hyperpigmentation and mild thickening of the skin indicating longstanding disease.) Peripheral Pulses: Yes posterior tibial pulses present and dorsalis pedis pulses present Right Lower Extremity: foot and digits Positive for ROM (Decreased range of motion noted to the right first metatarsal phalangeal joint. There is no significant pinch callus to this area. Just mild callusing.) Left Lower Extremity: foot and digits Positive for ROM (Decreased range of motion is noted to the left first metatarsal phalangeal joint. There is approximately 30 degrees dorsiflexion and this results in a pinch callus which ultimately resulted in the wound.) Skin General Skin Exam: venous stasis Wound Narrative: Left plantar medial hallux has open wound with some active bleeding and malodor. There is a significant amount of hyperkeratotic tissue buildup. And utilizing a #10 blade, sharp debridement was performed at the bedside chair. The deeper part of the wound showed thick stringy brown necrotic tissue. That was sharply debrided with scissors and pickups. Mild bleeding was easily controlled with compression. There was no deep purulence or abscess. The wound bled appropriately. Debridement was performed until almost all of the nonviable tissue was able to be removed. Patient felt no discomfort. Bone is able to be probed which is the medial aspect of the distal phalanx. Nails: yellow and thickened and other Patient has thickened toenails bilaterally and the left hallux nail is extremely thickened. Neuro Gait (Neuro): other Gait not assessed today secondary to the ulceration. The patient was encouraged to ambulate with most of the pressure on his heel in an abducted type of foot position. Monofilament: No (The patient has absent protective sensation bilaterally. There was no pain) Results Lab / Micro Data Attestation: I reviewed the patient's lab results. 03/13/24 20:29 03/15/24 03:10 Labs: Laboratory Results - last 24 hr 03/14/24 08:57: Urine Color Yellow, Urine Clarity Clear, Urine pH 6.0, Ur Specific Guild 1.015, Urine Protein Negative, Urine Glucose (UA) 1000 H, Urine Ketones Negative, Urine Occult Blood Negative, Urine Nitrite Negative, Urine Bilirubin Negative, Urine Urobilinogen Normal, Ur Leukocyte Esterase Negative, Urine RBC 0 SEEN, Urine WBC 0 SEEN, Ur Squamous Epith Cells 0-5 SEEN, Urine Bacteria RARE, Urine Mucus 0 SEEN, Ur Random Sodium 78, Urine Creatinine 50.60, Urine Urea Nitrogen 359 03/14/24 11:05: POC Glucose 145 H 03/14/24 16:36: POC Glucose 207 H 03/14/24 21:55: POC Glucose 157 H 03/15/24 03:10: Sodium 135 L, Potassium 4.2, Chloride 100, Carbon Dioxide 30.0, Anion Gap 5, BUN 36 H, Creatinine 1.80 H, Estim Creat Clear Calc 75.10, Est GFR (MDRD) Af Amer 51 L, Est GFR (MDRD) Non-Af 43 L, BUN/Creatinine Ratio 20.0, G lucose 168 H, Calcium 9.6, Phosphorus 4.8, Magnesium 2.5, Vancomycin Trough 27.6 H 03/15/24 06:31: POC Glucose 141 H Micro: Awaiting final culture results. Imaging Radiology Impression Lower Extremity MRI 03/14/24 06:26 IMPRESSION: First digit cellulitis with plantar medial ulceration and underlying early osteomyelitis in the medial distal phalanx. Reactive marrow edema throughout the remainder of the first distal phalanx and first proximal phalanx. Electronically Signed: Quang Hinton MD at 3:05 EDT , ADDENDUM: 03/15/24 2208 IMPRESSION: undefined Assessment & Plan Assessment/Plan (1) Gangrene associated with type 2 diabetes mellitus: PLAN: The nonviable tissue was sharply removed today. The malodor was resolved upon the completion of the treatment today. It was packed with Betadine soaked 2 x 2 gauze and then dressed with gauze and Tom. (2) Cellulitis: QUALIFIERS: Site of cellulitis: extremity Site of cellulitis of extremity: lower extremity Laterality: left Qualified Code(s): L03.116 - Cellulitis of left lower limb (3) Diabetic infection of left foot: PLAN: We also reviewed appropriate diabetic footcare and patient should seek the care of a associate account manager upon discharge. He should monitor his feet every day, do not go barefoot at home, and anytime there is a change in his foot, he should seek medical care immediately. The patient states he understands. (4) Diabetic foot ulcer with osteomyelitis: PLAN: Discussed findings with patient. The MRI reveals likely osteomyelitis in the medial aspect of the distal phalanx of the left hallux which clinically correlates with findings today. No bone was crumbling or loose within the wound. We will continue to monitor that. Risk, complications, alternative treatments were reviewed in detail with the patient. We discussed surgical intervention to remove the hallux as well as conservative measures of wound care with approximately 6 weeks of antibiotics to be monitored by infectious disease. The patient states that he would really prefer to try to save the toe. He does understand that there is a possibility of failure without treatment option which could ultimately result in the loss of his toe. The patient states that he would still like to try because the foot looks so much better than it did yesterday. Podiatry will follow again tomorrow and evaluate the toe. He understands that if the malodor returns and gangrenous tissue returns, then we would recommend removal of the toe. Podiatry will continue to follow. And all questions were answered today. No guarantees were given. PLAN: Plan See previous specific plans.
[2024-03-15] MEDS: Insulin Lispro 100 UNIT/ML INSULN.PEN SC ×3 (11:09→22:25)
[2024-03-15 11:28] LABS: Bedside Glucose 182 mg/dL (74-106)
[2024-03-15] MEDS: oxyCODONE 5 MG Tablet PO ×2 (12:15→19:37)
[2024-03-15] MEDS: Acetaminophen 325 MG Tablet 650 MG PO ×2 (12:16→19:37)
--- NOTE | 2024-03-15 12:51 | PN.HOSP_ITS ---
Reason for Visit Reason for Visit: Left foot wound Subjective Subjective Patient denies any issues right now. Had debridement done by podiatry today and states the plan is to relook at it tomorrow. Denies any current problems. Does have a history of tobacco abuse and smokes about a pack of cigarettes daily however declines need for nicotine patch. Objective Data Objective Data Vital Signs: Vital Signs Temp Pulse Resp BP Pulse Ox O2 Del Method 97.7 F L 61 18 130/88 H 100 Room Air 03/15/24 08:21 03/15/24 08:32 03/15/24 08:21 03/15/24 08:21 03/15/24 08:21 03/15/24 08:21 Oxygen Delivery Method Room Air Weight: 147.6 kg Body Mass Index (BMI) 43.1 Intake & Output: Intake and Output for Last 24 Hours 03/13/24 03/14/24 03/15/24 23:59 23:59 23:59 Intake Total 2378 / 2678 1000 / 1000 Balance 2378 / 2678 1000 / 1000 Lab / Micro Data 03/13/24 20:29 03/15/24 03:10 Labs: Laboratory Results - last 24 hr 03/14/24 16:36: POC Glucose 207 H 03/14/24 21:55: POC Glucose 157 H 03/15/24 03:10: Sodium 135 L, Potassium 4.2, Chloride 100, Carbon Dioxide 30.0, Anion Gap 5, BUN 36 H, Creatinine 1.80 H, Estim Creat Clear Calc 75.10, Est GFR (MDRD) Af Amer 51 L, Est GFR (MDRD) Non-Af 43 L, BUN/Creatinine Ratio 20.0, G lucose 168 H, Calcium 9.6, Phosphorus 4.8, Magnesium 2.5, Vancomycin Trough 27.6 H 03/15/24 06:31: POC Glucose 141 H 03/15/24 11:05: POC Glucose 182 H Micro: Microbiology 03/14/24 13:35 Ulcer, Decubitus - Toe Gram Stain - Final 03/14/24 13:35 Ulcer, Decubitus - Toe Wound Culture - Preliminary Streptococcus group C Radiography Diagnostic Testing: Radiology Impression Lower Extremity MRI 03/14/24 06:26 IMPRESSION: First digit cellulitis with plantar medial ulceration and underlying early osteomyelitis in the medial distal phalanx. Reactive marrow edema throughout the remainder of the first distal phalanx and first proximal phalanx. Electronically Signed: Quang Hinton MD at 3:05 EDT , ADDENDUM: 03/15/24315 IMPRESSION: undefined Physical Exam Const alert, oriented x3, no apparent distress and well nourished; Negative for average body habitus or healthy appearing Constitutional Narrative: Morbidly obese, middle-aged, white male, sitting up in bed watching television, appears comfortable, nontoxic General Appearance: cooperative HEENT normocephalic, head/scalp atraumatic, hearing grossly normal bilaterally and moist oral mucous membranes Eyes PERRL, EOMs intact bilaterally and conjunctivae normal Eyes Narrative: No scleral icterus Neck no lymphadenopathy and supple Neck Narrative: Neck is short and thick, trachea midline Resp normal respiratory effort, no retractions, no use of accessory muscles and clear to auscultation bilaterally Resp Narrative: Breath sounds are distant due to body habitus but clear Auscultation: Negative for rales, rhonchi or wheezes Cardio regular rate, regular rhythm, S1 normal heart sound, S2 normal heart sound, no murmurs, no rub, no gallops and no clicks Cardio Narrative: Distant heart tones due to body habitus GI normal to inspection, nondistended, normoactive bowel sounds, soft to palpation, non-tender and non-distended GI Narrative: Large protuberant abdomen Extremity Extremity Narrative: Left lower extremity edema noted with some erythema up into the left calf to about the mid calf area, left lower extremity with dressing in place, right lower extremity unremarkable, no clubbing or cyanosis Skin Skin Narrative: Patient has a large fungating ulceration of the plantar surface of the great toe of his Left foot with weeping and drainage is foul-smelling material noted. Neuro oriented x3, CN's II-XII intact bilaterally, moves all extremities, no focal motor deficits and No no sensory deficits noted Neuro Narrative: Mild decrease sensation bilateral lower extremities distally Sensorium / Orientation: awake, alert, oriented to person, oriented to place and oriented to time Speech: speech normal Psych affect normal Psych Narrative: Very pleasant, eye contact is good and patient interacts appropriately Assessment & Plan Assessment/Plan (1) Diabetic infection of left foot: (2) Elevated d-dimer: (3) CKD stage 3b, GFR 30-44 ml/min: (4) ARAM (acute kidney injury): PLAN: Plan Left great toe diabetic foot infection/OM of the left great toe -Left lower extremity MRI is consistent with first digit cellulitis And plantar ulceration and underlying osteomyelitis of the medial distal phalanx with reactive marrow edema throughout the remainder of the first distal phalanx and first proximal phalanx -Patient would like to avoid amputation if possible -Would like to try long-term IV antibiotics to try to save his toe but he is aware there is a possibility of failure and surgery may need to be performed -Ongoing serial monitoring by podiatry recommended -Continue antibiotics with vancomycin and Zosyn -Will consult infectious diseases patient would like to try for conservative management rather than amputation which will require long-term antibiotics -Continue Tylenol as needed -Continue oxycodone -Continue IV Dilaudid for breakthrough pain -Podiatry is following Left lower extremity edema/elevated D-dimer -D-dimer was elevated despite use of Eliquis -D-dimer elevation may be the result of infection however given elevation will need to rule out DVT-->ultrasound remains to be pending -Suspicion is overall low for DVT on Eliquis -Will need to hold Eliquis so if she does have a DVT will need to start heparin drip if DVT identified but since suspicion is overall low we will hold off on heparin at this time ARAM on CKD stage IIIb -Baseline renal function appears to run between 1.3 and 1.6 -Creatinine was up to 2.03 on 03/14/2024 however now trending back down at 1.8 -Hold home losartan/Aldactone--> consider restarting tomorrow as long as renal function is stable and blood pressure will tolerate -Check UA/check urine sodium, urine creatinine, and urine urea -Renal ultrasound was performed but pending still -No signs of urinary retention DM-2 -Hemoglobin A1c in 6.8 -Continue home Jardiance -Hold home Trulicity -Monitor for basal insulin needs--> none needed at this time with fasting sugar this morning at 168 -SSI -Accu-Cheks as ordered -Cardiac/carb controlled diet Chronic HFrEF -Suspected to be related to ischemic cardiomyopathy -Patient remains on room air -Echocardiogram from 10/07/2023 shows an EF of 35% with mild biatrial dilation and global dysfunction -Continue goal-directed therapy as able but will have to hold losartan for now -Continue diuretics for the time being but may need to reevaluate once I have more data back on renal dysfunction -Continue metoprolol -Hold Aldactone -Continue Jardiance CAD/essential HTN/HPL -Cardiac catheterization February 2021 demonstrated diffuse left main trunk disease and proximal LAD stent was widely patent, patent stent in the first major diagonal branch and a patent stent in the circumflex with 60% distal stenosis of the OM1 and 50% stenosis in the OM 2. RCA had 70% proximal stenosis and 50% mid vessel stenosis with diffuse disease and chronic total occlusion at the distal vessel, PDA had limited collateral flow from the third septal jacquard fixer to the distal right coronary artery and the right coronary artery posterior lateral branch had collateral flow from the distal circumflex -Plan at that time was medical treatment -Hold losartan -Hold Aldactone -Continue metoprolol -Continue atorvastatin -As needed hydralazine for systolic pressure greater than 150 PAF -Continue beta-ralph -Continue Eliquis for now -Patient had previously been on amiodarone which has subsequently been discontinued COPD -Add as needed DuoNebs -Add I-S Tobacco abuse -Recommend cessation -Will add nicotine replacement therapy if patient desires-currently declines -Is smoking about 1 pack/day and we did discuss the impact that we will have on his wound healing Morbid obesity -BMI 43.8 -Recommend weight loss -Complicates treatment, prognosis, outcomes DVT prophylaxis -Start subcu heparin 5000 units 3 times daily -Stop Eliquis now in preparation for OR CODE STATUS -Full code Charges/Coding Visit Charges Inpatient E&M: 72912 Subs Hosp L2
[2024-03-15 14:14] VITALS: BP 108/72; PULSE 62; RESP 18; TEMP 36.5; O2SAT 97
[2024-03-15] MEDS: 0.9% Saline Lock 10 ML Syringe IV (14:28)
[2024-03-15 16:45] LABS: Bedside Glucose 163 mg/dL (74-106)
[2024-03-15] MEDS: Atorvastatin Calcium 40 MG Tablet PO (22:06)
[2024-03-15 22:08] VITALS: PULSE 61
[2024-03-15 22:09] VITALS: BP 111/73; PULSE 61; RESP 16; TEMP 36.5; O2SAT 97
[2024-03-15 22:55] LABS: Bedside Glucose 161 mg/dL (74-106)
[2024-03-16] VITALS (7 sets, daily range): BP systolic 100–132; BP diastolic 66–81; PULSE 53–60; RESP 16; TEMP 35.3–36.6; O2SAT 94–100; BMI 42.9
[2024-03-16] MEDS: Acetaminophen 325 MG Tablet 650 MG PO ×2 (03:48→16:32)
[2024-03-16] MEDS: oxyCODONE 5 MG Tablet PO ×3 (03:48→16:32)
[2024-03-16 03:52] LABS: Absolute Lymphocyte Count 1.87 X10^3/uL (0.83-4.51); Absolute Neutrophil Count 4.1 X10^3/uL (2.0-7.7); Basophil% 1.4 % (0-1); Eosinophil# 0.27 X10^3/uL; Eosinophils% 3.9 % (0-5); Hematocrit 44.6 % (40-54); Hemoglobin 15.1 g/dL (13.0-16.5); Lymphocyte # 1.87 X10^3/ul (0.83-4.51); Lymphocyte % 26.8 % (19-41); Mean Corp Hgb Conc 33.9 g/dL (32-36); Mean Corpuscular Hgb 29.1 pg (27.0-32.0); Mean Corpuscular Volume 85.9 fL (80-94); Mean Platelet Vol. 8.2 fl (6.2-12.0); Monocyte# 0.54 X10^3/uL; Monocyte% 7.7 % (0-10); NRBC Flagged by Analyzer 0 % (0-5); Neutrophil # 4.13 X10^3/uL (2.7-7.7); Neutrophil % 59.2 % (47-70); Platelet Count 198 K/mm3 (150-450); RBC Distribution Width CV 14.6 % (11.6-14.6); Red Blood Count 5.19 M/mm3 (4.6-6.2)
[2024-03-16 04:07] LABS: Anion Gap 6 (5-15); BUN 38 mg/dL (7-18); Calcium,Total 9.5 mg/dL (8.5-10.1); Chloride 100 mmol/L (98-107); Creatinine, Serum 1.73 mg/dL (0.70-1.30); EST Glomerular Filtration Rate 45 mL/min (>60); Est Glom Filt Rate - Afr Amer 54 mL/min (>60); Glucose 149 mg/dL (74-106); Sodium Level 135 mmol/L (136-145)
[2024-03-16 04:08] LABS: Vancomycin, Random Level 13.5 ug/mL (0.0-15.0)
--- NOTE | 2024-03-16 04:21 | PCM.RX.CS ---
Consult Antibiotic Management Pharmacy has been consulted to manage selected antibiotic: Vancomycin Type of Intervention Type of Consult: Follow-up Suspected Infection Suspected Infection: Skin/Soft tissue and Osteomyelitis Prior Doses of Antibiotics Prior Doses of Antibiotics Received/Current Regimen: Vancomycin last dose 1750 mg given 03/14 @ 1548 Labs Labs: Sodium 135 mmol/L (136-145) L 03/16/24 03:30 Potassium 4.0 mmol/L (3.5-5.1) 03/16/24 03:30 Chloride 100 mmol/L (98-107) 03/16/24 03:30 Carbon Dioxide 29.0 mmol/L (21.0-32.0) 03/16/24 03:30 Anion Gap 6 (5-15) 03/16/24 03:30 BUN 38 mg/dL (7-18) H 03/16/24 03:30 Creatinine 1.73 mg/dL (0.70-1.30) H 03/16/24 03:30 Est GFR (MDRD) Af Amer 54 mL/min (>60) L 03/16/24 03:30 Est GFR (MDRD) Non-Af 45 mL/min (>60) L 03/16/24 03:30 BUN/Creatinine Ratio 22.0 RATIO (10-20) H 03/16/24 03:30 Glucose 149 mg/dL (74-106) H 03/16/24 03:30 Vancomycin Trough 27.6 ug/mL (5.0-15.0) H 03/15/24 03:10 Random Vancomycin 13.5 ug/mL (0.0-15.0) 03/16/24 03:30 Microbiology Microbiology: Microbiology 03/14/24 13:35 Ulcer, Decubitus - Toe Gram Stain - Final 03/14/24 13:35 Ulcer, Decubitus - Toe Wound Culture - Preliminary Streptococcus group C Dosing Weight Weight used for dosin kg Estimated Creatinine Clearance Estimated Creatinine Clearance: ~ 77 Goal Trough Goal Trough: 15-20 mcg/mL Pharmacy Plan for Drug Dosing Pharmacy Plan for Drug Dosing: Vancomycin random level = 13.5. Resume vancomycin at 1000 mg Q12H. Trough prior to the 4th dose of the new regimen. .Pharmacy Service will continue to monitor and adjust dosing as required. Follow-Up Labs Follow-Up Labs: Trough: Vancomycin Date/Time Labs Ordered Labs to be done on [date and time ordered]: 10/1/24 @ 9424
[2024-03-16] MEDS: Vancomycin IV 1,000 MG/200 ML BAG 200 MG IV ×2 (04:25→17:46)
[2024-03-16] MEDS: Piperacil/Tazobactam 3.375 GM in 0.9% Normal Saline (50mL MB+) 50 ML IV ×3 (06:23→21:06)
[2024-03-16] MEDS: Heparin Injection (Vial) 5,000 UNIT/ML VIAL 5000 UNIT SC ×2 (06:25→13:39)
[2024-03-16] MEDS: Insulin Lispro 100 UNIT/ML INSULN.PEN SC ×3 (06:28→21:11)
[2024-03-16 06:48] LABS: Bedside Glucose 189 mg/dL (74-106)
--- NOTE | 2024-03-16 07:09 | PCM.PROGNOTE ---
Subjective Subjective Patient was resting comfortably in bed with his left foot elevated. Dressing was intact. He states that he is having no discomfort. He had a good night. Objective Data Objective Data Dressing was clean, dry, intact. There is no strikethrough on the outer aspect. With removal of the dressing, foul odor is completely absent. Vital Signs: Vital Signs Temp Pulse Resp BP Pulse Ox O2 Del Method 97.5 F L 53 L 16 132/77 H 100 Room Air 03/16/24 04:30 03/16/24 03:41 03/16/24 03:41 03/16/24 03:41 03/16/24 03:41 03/16/24 03:41 Oxygen Delivery Method Room Air Weight: 146.8 kg Body Mass Index (BMI) 42.9 Intake & Output: Intake and Output for Last 24 Hours 03/14/24 03/15/24 03/16/24 23:59 23:59 23:59 Intake Total 2378 / 2678 1350 / 1650 750 / 750 Balance 2378 / 2678 1350 / 1650 750 / 750 Lab / Micro Data 03/16/24 03:30 03/16/24 03:30 Labs: Laboratory Results - last 24 hr 03/15/24 11:05: POC Glucose 182 H 03/15/24 16:17: POC Glucose 163 H 03/15/24 22:24: POC Glucose 161 H 03/16/24 03:30: WBC 7.0, RBC 5.19, Hgb 15.1, Hct 44.6, MCV 85.9, MCH 29.1, MCHC 33.9, RDW Std Deviation 46.0 H, RDW Coeff of Darshan 14.6, Plt Count 198, MPV 8.2, Immature Gran % (Auto) 1.000 H, Neut % (Auto) 59.2, Lymph % (Auto) 26.8, [place] % (Auto) 7.7, Eos % (Auto) 3.9, Baso % (Auto) 1.4 H, Absolute Neuts (auto) 4.1, Absolute Lymphs (auto) 1.87, Nucleated RBC % 0, Sodium 135 L, Potassium 4.0, Chloride 100, Carbon Dioxide 29.0, Anion Gap 6, BUN 38 H, Creatinine 1.73 H, Estim Creat Clear Calc 77.30, Est GFR (MDRD) Af Amer 54 L, Est GFR (MDRD) Non-Af 45 L, BUN/Creatinine Ratio 22.0 H, Glucose 149 H, Calcium 9.5, Random Vancomycin 13.5 03/16/24 06:27: POC Glucose 189 H Micro: Microbiology 03/14/24 13:35 Ulcer, Decubitus - Toe Gram Stain - Final 03/14/24 13:35 Ulcer, Decubitus - Toe Wound Culture - Preliminary Streptococcus group C Physical Exam Const alert, oriented x3, no apparent distress, no limitations, healthy appearing and well nourished Skin Wound Narrative: The left hallux wound has greatly improved since yesterday. Malodor is absent. Cellulitis is almost completely resolved. The toe remains mildly edematous. Medial aspect of the distal phalanx is minimally visible and is also palpable. Bone cortex is intact and not crumbling grossly. There is no tunneling. Wound measures 1.4 x 1.4 x 1.2 mm. Base is granular with the exception of the most distal aspect which did have a small amount of stringy muñoz-yellow tissue remaining. With pickups and suture removal kit, the remaining aspect of the nonviable tissue was removed sharply and mild bleeding was easily controlled with compression. The remaining aspect of the wound is granular tissue. Assessment & Plan Assessment/Plan (1) Diabetic foot ulcer with osteomyelitis: PLAN: Reviewed findings with patient as well as treatment options. He still wishes to move forward with conservative options. Patient states he lives with his daughter and she will be able to help address any wound that needs to be packed. Betadine soaked 2 x 2 gauze was repacked into the wound. Recommend continue with local wound care. He will need to have follow-up care provided. Home health may or may not be necessary per patient's comfort level with packing his own wound or having his daughter educated about that. So possibly a couple of visits initially may be beneficial. 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 The wound again was packed with Betadine soaked 2 x 2 gauze and then wrapped with sterile compressive dressing. Patient does understand the possibility of failure resulting in surgical intervention to amputate the hallux. He also understands possibility of worsening infection but at this point over the last 24 hours, the wound has greatly improved. Her podiatric standpoint, the patient could be discharged and this can be treated on an outpatient basis. Should surgery be necessary, that could also be treated outpatient. (2) Diabetic infection of left foot:
[2024-03-16] MEDS: Juven (unflavored) Packet 1 PACKET PO ×2 (07:56→16:37)
[2024-03-16] MEDS: Potassium Chloride Oral Tablet 20 MEQ PO ×2 (07:57→16:33)
--- NOTE | 2024-03-16 08:44 | WOUNDNOTE ---
Dr Marshall had been in this am and changed dressing to the left great toe. will leave in place at this time.
[2024-03-16] MEDS: Furosemide 40 MG Tablet PO ×2 (09:53→17:54)
[2024-03-16] MEDS: Lactobacillis Acidophilus 1 CAP PO ×4 (09:53→21:31)
[2024-03-16] MEDS: Empagliflozin 25 MG Tablet PO (09:53)
[2024-03-16] MEDS: Metoprolol Tartrate 50 MG Tablet PO ×2 (09:56→21:31)
[2024-03-16 11:39] LABS: Bedside Glucose 156 mg/dL (74-106)
--- NOTE | 2024-03-16 15:18 | PN_ITS ---
Subjective Subjective Patient seen and examined. He was lying comfortably in bed. He had no complaints and had an uneventful night. Review of systems otherwise negative. He is awaiting ID evaluation. He has remained hemodynamically stable. Objective Data Objective Data Vital Signs: Vital Signs Temp Pulse Resp BP Pulse Ox O2 Del Method 97.3 F L 60 16 100/66 94 Room Air 03/16/24 07:48 03/16/24 09:56 03/16/24 07:48 03/16/24 09:56 03/16/24 07:48 03/16/24 07:52 Oxygen Delivery Method Room Air Weight: 323 lb 10.217 oz Body Mass Index (BMI) 42.9 Intake & Output: Intake and Output for Last 24 Hours 03/14/24 03/15/24 03/16/24 23:59 23:59 23:59 Intake Total 2378 / 2678 1350 / 1650 1250 / 1250 Balance 2378 / 2678 1350 / 1650 1250 / 1250 Lab / Micro Data 03/16/24 03:30 03/16/24 03:30 Labs: Laboratory Results - last 24 hr 03/15/24 16:17: POC Glucose 163 H 03/15/24 22:24: POC Glucose 161 H 03/16/24 03:30: WBC 7.0, RBC 5.19, Hgb 15.1, Hct 44.6, MCV 85.9, MCH 29.1, MCHC 33.9, RDW Std Deviation 46.0 H, RDW Coeff of Darshan 14.6, Plt Count 198, MPV 8.2, I mmature Gran % (Auto) 1.000 H, Neut % (Auto) 59.2, Lymph % (Auto) 26.8, [place] % (Auto) 7.7, Eos % (Auto) 3.9, Baso % (Auto) 1.4 H, Absolute Neuts (auto) 4.1, Absolute Lymphs (auto) 1.87, Nucleated RBC % 0, Sodium 135 L, Potassium 4.0, Chloride 100, Carbon Dioxide 29.0, Anion Gap 6, BUN 38 H, Creatinine 1.73 H, Estim Creat Clear Calc 77.30, Est GFR (MDRD) Af Amer 54 L, Est GFR (MDRD) Non-Af 45 L, BUN/Creatinine Ratio 22.0 H, Glucose 149 H, Calcium 9.5, Random Vancomycin 13.5 03/16/24 06:27: POC Glucose 189 H 03/16/24 11:21: POC Glucose 156 H Micro: Microbiology 03/14/24 07:00 Wound - Left Foot Skin and Soft Tissue MRSA/MSSA (PCR - Final 03/14/24 13:35 Ulcer, Decubitus - Toe Gram Stain - Final 03/14/24 13:35 Ulcer, Decubitus - Toe Wound Culture - Final Streptococcus group C Physical Exam Const alert, oriented x3 and no apparent distress Constitutional Narrative: obese General Appearance: cooperative and well developed HEENT normocephalic, head/scalp atraumatic and moist oral mucous membranes Eyes PERRL and EOMs intact bilaterally Neck supple and no JVD Lymph Lymphatic: no lymphadenopathy noted Resp normal respiratory effort, normal air movement and clear to auscultation bilaterally Cardio regular rate, regular rhythm, S1 normal heart sound, S2 normal heart sound and no murmurs GI normal to inspection, nondistended, normoactive bowel sounds, soft to palpation, non-tender and non-distended Extremity Extremity Narrative: left great toe wrapped in bandage. General Extremity: no tenderness to palpation of joints or extremities Skin Skin Narrative: as under extremities Neuro CN's II-XII intact bilaterally, no focal motor deficits, no sensory deficits noted and deep tendon reflexes 2+ bilaterally Motor Exam: strength 5/5 throughout and general weakness Psych thought process normal, cooperative and affect normal Appearance: appropriate Assessment & Plan Assessment/Plan (1) Diabetic infection of left foot: (2) ARAM (acute kidney injury): PLAN: Plan #Left great toe diabetic infection with osteomyelitis of the left great toe * Left lower extremity MRI showed great toe cellulitis with plantar ulceration and underlying osteomyelitis of the medial distal phalanx with reactive narrowing edema throughout the remainder of the distal first phalanx and first proximal phalanx. * S/p debridement by podiatry. * Patient does not want to do cystoscopy and wants to try long-term IV antibiotics now. * Currently on IV vancomycin and Zosyn. * on PO tylenol, oxycodone and IV dilaudid prn for pain * ID consulted, awaiting recs. * #Elevated D dimer * Duplex of left lower extremity was negative for any evidence of DVT. Currently on Eliquis. Will continue Eliquis. #ARAM on CKD stage IIIb: Losartan and Aldactone held as creatinine was up to 2.03. Baseline is between 1.3-1.6. Creatinine has started trending downwards. Will monitor closely. Renal ultrasound ordered. #Type 2 diabetes mellitus: On Jardiance and Trulicity. A1c 6.8. Insulin sliding scale. Accu-Cheks ACHS. #Heart failure with reduced ejection fraction * Not in exacerbation. Thought to be due to ischemic cardiomyopathy. Has known EF of 35% with mild biatrial dilatation and global dysfunction. * Losartan held due to ARAM on CKD * Aldactone also on hold. On Lasix. * On Jardiance #CAD * Had cardiac cath in March 16 to rule out with patent stents in the proximal LAD and first major diagonal branch as well as circumflex artery. RCA had 70% proximal stenosis and 50% mid vessel stenosis. Plan was for medical management * On metoprolol and statin. Losartan and Aldactone on hold due to ARAM on CKD * #Paroxysmal A-fib: On metoprolol. On Eliquis. #COPD: Not in exacerbation. Breathing treatments bronchodilators. #Nicotine dependence: Counseled to quit. Nicotine patch 21 mg daily as needed. #Morbid obesity: BMI is 42.7. Complicates acute care, expected recovery and prognosis. DVT prophylaxis: On heparin. Will DC heparin and resume Eliquis. Charges/Coding Visit Charges Inpatient E&M: 40228 Subs Hosp L2
[2024-03-16 16:43] LABS: Bedside Glucose 133 mg/dL (74-106)
--- NOTE | 2024-03-16 16:47 | CON.PCM.ID_ITS ---
Assessment & Plan Assessment/Plan (1) ARAM (acute kidney injury): (2) Diabetic foot ulcer with osteomyelitis: PLAN: Wound cx so far with strep. On vanc/zosyn. Will follow, thank you (3) Diabetic neuropathy: QUALIFIERS: Diabetes mellitus type: type 2 Diabetes mellitus complication detail: diabetic polyneuropathy Qualified Code(s): E11.42 - Type 2 diabetes mellitus with diabetic polyneuropathy HPI Consult Data Date of Consult: 03/16/24 HPI Narrative Reason for Consultation: osteo HPI Narrative: LACHO BROCK is a 48 M who presented 03/13 with two progressive L 1st toe pain, redness, swelling, and purulent drainage. Some chills. Initially started as blood blister. Admitted to [facility] on vanc/zosyn, transferred here. Feeling better, I&D done by Dr. Marshall. No n/v/d. Full ROS performed and neg except as noted above. 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 Cellulitis of left lower limb Atrial fibrillation with RVR Hypertensive urgency HTN (hypertension) CHF (congestive heart failure) COPD (chronic obstructive pulmonary disease) Afib Home Medications ?Medication ?Instructions ?Recorded ?Last Taken ?Type apixaban 5 mg tablet (Eliquis) 5 mg PO BID blood thinner 10/03/23 10/02/23 History atorvastatin 40 mg tablet 40 mg PO QHS cholestrol #30 tabs 10/09/23 Unknown Rx furosemide 40 mg tablet 40 mg PO BID diurectic #60 tabs 10/09/23 10/02/23 Rx losartan 25 mg tablet 25 mg PO DAILY bp #30 tabs 10/09/23 Unknown Rx potassium chloride 20 mEq 20 meq PO BIDCM k+ supplement #60 10/09/23 Unknown Rx tablet,extended release(part/cryst) tabs spironolactone 25 mg tablet 25 mg PO DAILY directic #30 tabs 10/09/23 Unknown Rx dulaglutide 0.75 mg/0.5 mL mg subcut .weekly dm 03/13/24 Unknown History subcutaneous pen injector (Trulicity) empagliflozin 25 mg tablet 25 mg PO DAILY dm 03/13/24 Unknown History (Jardiance) metoprolol tartrate 50 mg tablet 50 mg PO BID control heart rate 03/13/24 Unknown Rx #60 tabs Allergy/AdvReac Type Severity Reaction Status Date / Time No Known Allergies Allergy Verified 03/13/24 19:31 Family History Father Heart disease Surgical History History of coronary artery stent placement History of cardiac catheterization Social History Smoking Status: Current every day smoker tobacco type: cigarettes alcohol intake: current alcohol intake frequency: a few times a month substance use type: does not use caffeine: Yes Physical Exam Const alert, oriented x3 and no apparent distress General Appearance: cooperative HEENT normocephalic and head/scalp atraumatic Eyes PERRL and EOMs intact bilaterally Neck supple and No nodes Resp normal air movement and clear to auscultation bilaterally Cardio regular rate and regular rhythm GI soft to palpation, non-tender and non-distended Extremity General Extremity: edema Skin Skin Narrative: toe wrapped Lab / Micro Data Attestation: I reviewed the patient's lab results. 03/16/24 03:30 03/16/24 03:30 Labs: Laboratory Results - last 24 hr 03/15/24 22:24: POC Glucose 161 H 03/16/24 03:30: WBC 7.0, RBC 5.19, Hgb 15.1, Hct 44.6, MCV 85.9, MCH 29.1, MCHC 33.9, RDW Std Deviation 46.0 H, RDW Coeff of Darshan 14.6, Plt Count 198, MPV 8.2, I mmature Gran % (Auto) 1.000 H, Neut % (Auto) 59.2, Lymph % (Auto) 26.8, [place] % (Auto) 7.7, Eos % (Auto) 3.9, Baso % (Auto) 1.4 H, Absolute Neuts (auto) 4.1, Absolute Lymphs (auto) 1.87, Nucleated RBC % 0, Sodium 135 L, Potassium 4.0, Chloride 100, Carbon Dioxide 29.0, Anion Gap 6, BUN 38 H, Creatinine 1.73 H, Estim Creat Clear Calc 77.30, Est GFR (MDRD) Af Amer 54 L, Est GFR (MDRD) Non-Af 45 L, BUN/Creatinine Ratio 22.0 H, Glucose 149 H, Calcium 9.5, Random Vancomycin 13.5 03/16/24 06:27: POC Glucose 189 H 03/16/24 11:21: POC Glucose 156 H 03/16/24 16:19: POC Glucose 133 H Micro: Microbiology 03/14/24 07:00 Wound - Left Foot Skin and Soft Tissue MRSA/MSSA (PCR - Final 03/14/24 13:35 Ulcer, Decubitus - Toe Gram Stain - Final 03/14/24 13:35 Ulcer, Decubitus - Toe Wound Culture - Final Streptococcus group C
[2024-03-16] MEDS: APIXABAN 5 MG TABLET PO (21:06)
[2024-03-16] MEDS: 0.9% Saline Lock 10 ML Syringe IV (21:31)
[2024-03-16] MEDS: Atorvastatin Calcium 40 MG Tablet PO (21:31)
[2024-03-16 21:47] LABS: Bedside Glucose 163 mg/dL (74-106)
[2024-03-17] MEDS: Vancomycin IV 1,000 MG/200 ML BAG 200 MG IV (03:30)
[2024-03-17 03:33] VITALS: BP 121/67; PULSE 59; RESP 16; TEMP 36.3; O2SAT 97
[2024-03-17 05:36] VITALS: BMI 43.0
[2024-03-17] MEDS: Piperacil/Tazobactam 3.375 GM in 0.9% Normal Saline (50mL MB+) 50 ML IV (05:43)
[2024-03-17] MEDS: Acetaminophen 325 MG Tablet 650 MG PO ×2 (05:47→20:57)
[2024-03-17] MEDS: oxyCODONE 5 MG Tablet PO ×2 (05:47→20:56)
[2024-03-17] MEDS: Insulin Lispro 100 UNIT/ML INSULN.PEN SC ×3 (06:26→21:02)
[2024-03-17 06:46] LABS: Bedside Glucose 189 mg/dL (74-106)
[2024-03-17 08:06] VITALS: BP 99/69; PULSE 57; RESP 16; TEMP 36.3; O2SAT 97
[2024-03-17] MEDS: Potassium Chloride Oral Tablet 20 MEQ PO ×2 (08:12→17:24)
[2024-03-17] MEDS: Juven (unflavored) Packet 1 PACKET PO ×2 (08:12→17:24)
[2024-03-17 08:38] LABS: Absolute Lymphocyte Count 1.55 X10^3/uL (0.83-4.51); Absolute Neutrophil Count 4.6 X10^3/uL (2.0-7.7); Basophil# 0.07 X10^3/uL; Eosinophil# 0.22 X10^3/uL; Eosinophils% 3.1 % (0-5); Hematocrit 46.4 % (40-54); Hemoglobin 15.7 g/dL (13.0-16.5); Lymphocyte # 1.55 X10^3/ul (0.83-4.51); Lymphocyte % 22.2 % (19-41); Mean Corp Hgb Conc 33.8 g/dL (32-36); Mean Corpuscular Hgb 28.5 pg (27.0-32.0); Mean Corpuscular Volume 84.4 fL (80-94); Mean Platelet Vol. 8.1 fl (6.2-12.0); Monocyte# 0.44 X10^3/uL; Monocyte% 6.3 % (0-10); NRBC Flagged by Analyzer 0 % (0-5); Neutrophil # 4.64 X10^3/uL (2.7-7.7); Neutrophil % 66.4 % (47-70); Platelet Count 199 K/mm3 (150-450); RBC Distribution Width CV 14.3 % (11.6-14.6); RBC Distribution Width SD 44.2 fl (35.1-43.9)
[2024-03-17 09:12] LABS: Anion Gap 6 (5-15); BUN 39 mg/dL (7-18); Calcium,Total 9.7 mg/dL (8.5-10.1); Chloride 99 mmol/L (98-107); Creatinine, Serum 1.86 mg/dL (0.70-1.30); EST Glomerular Filtration Rate 41 mL/min (>60); Est Glom Filt Rate - Afr Amer 50 mL/min (>60); Estimated Creatinine Clearance 71.79 ml/min; Glucose 170 mg/dL (74-106); Potassium 4.1 mmol/L (3.5-5.1); Sodium Level 134 mmol/L (136-145)
[2024-03-17] MEDS: Empagliflozin 25 MG Tablet PO (10:02)
[2024-03-17] MEDS: Furosemide 40 MG Tablet PO (10:02)
[2024-03-17] MEDS: Lactobacillis Acidophilus 1 CAP PO ×4 (10:02→20:57)
[2024-03-17] MEDS: APIXABAN 5 MG TABLET PO ×2 (10:03→20:58)
--- NOTE | 2024-03-17 10:45 | PCM.PN.ID ---
Physical Exam Narrative Feeling well, no fever, no n/v/d. Const alert and no apparent distress General Appearance: cooperative Resp normal air movement and clear to auscultation bilaterally Cardio regular rate and regular rhythm GI soft to palpation, non-tender and non-distended Skin Skin Narrative: Foot wrapped ID ID: Route of nutrition/ use of supplements: [] Nutritional Intake: [] IV Site: [] Nice Catheter: [] Assessment & Plan Assessment/Plan (1) ARAM (acute kidney injury): (2) Diabetic foot ulcer with osteomyelitis: PLAN: Wound cx so far with strep. On vanc/zosyn. Will narrow to unasyn. Ok for home with po augmentin 875mg bid for 38 more days. ID followup in 2-3 weeks. Will follow (3) Diabetic neuropathy: QUALIFIERS: Diabetes mellitus type: type 2 Diabetes mellitus complication detail: diabetic polyneuropathy Qualified Code(s): E11.42 - Type 2 diabetes mellitus with diabetic polyneuropathy
--- NOTE | 2024-03-17 11:19 | PN_ITS ---
Subjective Subjective Patient seen and examined. He had no complaints and had an uneventful night. Review of systems otherwise negative. Blood pressure is running low in the 90s systolic though he is asymptomatic. Objective Data Objective Data Vital Signs: Vital Signs Temp Pulse Resp BP Pulse Ox O2 Del Method 97.4 F L 57 L 16 99/69 97 Room Air 03/17/24 08:06 03/17/24 08:06 03/17/24 08:06 03/17/24 08:06 03/17/24 08:06 03/17/24 08:06 Oxygen Delivery Method Room Air Weight: 324 lb 8.327 oz Body Mass Index (BMI) 43.0 Intake & Output: Intake and Output for Last 24 Hours 03/15/24 03/16/24 03/17/24 23:59 23:59 23:59 Intake Total 1350 / 1650 2000 / 2300 850 / 850 Balance 1350 / 1650 2000 / 2300 850 / 850 Lab / Micro Data 03/17/24 08:31 03/17/24 08:31 Labs: Laboratory Results - last 24 hr 03/16/24 11:21: POC Glucose 156 H 03/16/24 16:19: POC Glucose 133 H 03/16/24 21:10: POC Glucose 163 H 03/17/24 06:25: POC Glucose 189 H 03/17/24 08:31: WBC 7.0, RBC 5.50, Hgb 15.7, Hct 46.4, MCV 84.4, MCH 28.5, MCHC 33.8, RDW Std Deviation 44.2 H, RDW Coeff of Darshan 14.3, Plt Count 199, MPV 8.1, I mmature Gran % (Auto) 1.000 H, Neut % (Auto) 66.4, Lymph % (Auto) 22.2, [place] % (Auto) 6.3, Eos % (Auto) 3.1, Baso % (Auto) 1.0, Absolute Neuts (auto) 4.6, Absolute Lymphs (auto) 1.55, Nucleated RBC % 0, Sodium 134 L, Potassium 4.1, Chloride 99, Carbon Dioxide 29.0, Anion Gap 6, BUN 39 H, Creatinine 1.86 H, Estim Creat Clear Calc 71.79, Est GFR (MDRD) Af Amer 50 L, Est GFR (MDRD) Non-Af 41 L, BUN/Creatinine Ratio 21.0 H, Glucose 170 H, Calcium 9.7 Micro: Microbiology 03/14/24 07:00 Wound - Left Foot Skin and Soft Tissue MRSA/MSSA (PCR - Final 03/14/24 13:35 Ulcer, Decubitus - Toe Gram Stain - Final 03/14/24 13:35 Ulcer, Decubitus - Toe Wound Culture - Final Streptococcus group C Radiography Diagnostic Testing: Radiology Impression Venous Doppler Study 03/13/24 22:23 Interpretation Summary Deep veins of the lower extremities are bilaterally patent and compressible segmentally. There is no evidence of deep vein thrombosis on either side. Valvular competence appears intact within the proximal deep venous systems bilaterally. The great saphenous veins appear bilaterally patent and compressible segmentally. Ordering Physician: Elbert Wolfe Performed By: Rodri Prajapati RVLyudmila Physical Exam Const alert, oriented x3 and no apparent distress Constitutional Narrative: obese General Appearance: cooperative and well developed HEENT normocephalic, head/scalp atraumatic, hearing grossly normal bilaterally and moist oral mucous membranes Eyes PERRL, EOMs intact bilaterally and conjunctivae normal Eyes Narrative: No scleral icterus Neck no lymphadenopathy, supple and no JVD Neck Narrative: Neck is short and thick, trachea midline Lymph Lymphatic: no lymphadenopathy noted Resp normal respiratory effort, normal air movement and clear to auscultation bilaterally Resp Narrative: Breath sounds are distant due to body habitus but clear Auscultation: Negative for rales, rhonchi or wheezes Cardio regular rate, regular rhythm, S1 normal heart sound, S2 normal heart sound and no murmurs GI normal to inspection, nondistended, normoactive bowel sounds, soft to palpation, non-tender and non-distended GI Narrative: obese abdomen Extremity Extremity Narrative: left great toe wrapped in bandage. General Extremity: no tenderness to palpation of joints or extremities Skin Skin Narrative: as under extremities Neuro oriented x3, CN's II-XII intact bilaterally, moves all extremities, no focal motor deficits, no sensory deficits noted and deep tendon reflexes 2+ bilaterally Sensorium / Orientation: awake, alert, oriented to person, oriented to place and oriented to time Speech: speech normal Motor Exam: strength 5/5 throughout and general weakness Psych thought process normal, cooperative and affect normal Appearance: appropriate Assessment & Plan Assessment/Plan (1) Diabetic infection of left foot: (2) ARAM (acute kidney injury): PLAN: Plan #Left great toe diabetic infection with osteomyelitis of the left great toe * Left lower extremity MRI showed great toe cellulitis with plantar ulceration and underlying osteomyelitis of the medial distal phalanx with reactive narrowing edema throughout the remainder of the distal first phalanx and first proximal phalanx. * S/p debridement by podiatry. * Patient does not want to do cystoscopy and wants to try long-term IV antibiotics now. * Currently on IV vancomycin and Zosyn. * on PO tylenol, oxycodone and IV dilaudid prn for pain * ID on board; antibiotics narrowed down to IV unasyn. Per ID ok for DC home on PO augmentin 875mg bid for 38 more days. * #Elevated D dimer * Duplex of left lower extremity was negative for any evidence of DVT. Currently on Eliquis. Will continue Eliquis. #ARAM on CKD stage IIIb: * Losartan and Aldactone held as creatinine was up to 2.03. * renal ultrasound done on 03/14/2024; read is pending. * Cr is 1.86 today. * continue holding aldactone and losartan due to hypotension also. * Contacted ultrasound about renal ultrasound read still pending. #Type 2 diabetes mellitus: On Jardiance and Trulicity weekly. A1c is 6.8. Insulin sliding scale. Accu-Cheks ACHS. #Heart failure with reduced ejection fraction * Not in exacerbation. Thought to be due to ischemic cardiomyopathy. Has known EF of 35% with mild biatrial dilatation and global dysfunction. * Losartan held due to ARAM on CKD * Aldactone also on hold. On Lasix. Will reduce lasix to 40mg daily from 40mg bid due to hypotension. * On Jardiance #CAD * Had cardiac cath in March 16 to rule out with patent stents in the proximal LAD and first major diagonal branch as well as circumflex artery. RCA had 70% proximal stenosis and 50% mid vessel stenosis. Plan was for medical management * On metoprolol and statin. Losartan and Aldactone on hold due to ARAM on CKD * Metoprolol dose cut down to 25 mg twice daily * #Paroxysmal A-fib: On metoprolol. On Eliquis. Metoprolol held today due to hypotension. Will cut down dose to 25 mg twice daily from 50 mg twice daily. #COPD: Not in exacerbation. Breathing treatments bronchodilators. #Nicotine dependence: Counseled to quit. Nicotine patch 21 mg daily as needed. #Morbid obesity: BMI is 42.7. Complicates acute care, expected recovery and prognosis. DVT prophylaxis: on eliquis. DC tomorrow if low blood pressure has improved. Charges/Coding Visit Charges Inpatient E&M: 48162 Subs Hosp L2
--- NOTE | 2024-03-17 11:27 | WOUNDNOTE ---
wound photo: left great toe
[2024-03-17 12:02] LABS: Bedside Glucose 193 mg/dL (74-106)
[2024-03-17] MEDS: Ampicillin/Sulbactam 3 GM in 0.9% Normal Saline (100mL MB+) 100 ML IV ×2 (12:57→20:59)
--- NOTE | 2024-03-17 15:40 | CASEMGMT ---
UZMA CM into pt room, pt lying in bed in no distress. Pt is aware he will dc on po atb. Pt states his dtr will perform his wound care or he can do it himself. Pt denies need for any homegoing services at this time.
[2024-03-17 16:00] VITALS: BP 125/48; PULSE 66; RESP 16; TEMP 36.6; O2SAT 97
[2024-03-17 16:16] LABS: Bedside Glucose 116 mg/dL (74-106)
[2024-03-17 20:33] VITALS: BP 109/67; PULSE 72; RESP 16; TEMP 36.6; O2SAT 97
[2024-03-17] MEDS: Atorvastatin Calcium 40 MG Tablet PO (20:57)
[2024-03-17 20:59] VITALS: BP 109/67; PULSE 72
[2024-03-17] MEDS: Metoprolol Tartrate 25 MG Tablet PO (20:59)
[2024-03-17] MEDS: 0.9% Normal Saline (250mL Bag) 250 ML 15 ML IV (20:59)
[2024-03-17 21:38] LABS: Bedside Glucose 152 mg/dL (74-106)
[2024-03-18 03:16] VITALS: BP 106/76; PULSE 63; RESP 18; TEMP 36.6; O2SAT 93
[2024-03-18 06:00] VITALS: BMI 42.8
[2024-03-18] MEDS: Insulin Lispro 100 UNIT/ML INSULN.PEN SC ×2 (06:49→11:34)
[2024-03-18] MEDS: Ampicillin/Sulbactam 3 GM in 0.9% Normal Saline (100mL MB+) 100 ML IV (06:50)
[2024-03-18 07:12] LABS: Bedside Glucose 173 mg/dL (74-106)
[2024-03-18 07:27] LABS: Absolute Lymphocyte Count 1.58 X10^3/uL (0.83-4.51); Absolute Neutrophil Count 4.2 X10^3/uL (2.0-7.7); Basophil# 0.07 X10^3/uL; Basophil% 1.1 % (0-1); Hematocrit 44.4 % (40-54); Hemoglobin 15.2 g/dL (13.0-16.5); Lymphocyte # 1.58 X10^3/ul (0.83-4.51); Lymphocyte % 23.9 % (19-41); Mean Corp Hgb Conc 34.2 g/dL (32-36); Mean Corpuscular Hgb 29.1 pg (27.0-32.0); Mean Corpuscular Volume 85.1 fL (80-94); Mean Platelet Vol. 8.4 fl (6.2-12.0); Monocyte# 0.43 X10^3/uL; Monocyte% 6.5 % (0-10); NRBC Flagged by Analyzer 0 % (0-5); Neutrophil # 4.24 X10^3/uL (2.7-7.7); Neutrophil % 64.3 % (47-70); Platelet Count 192 K/mm3 (150-450); RBC Distribution Width CV 14.4 % (11.6-14.6); RBC Distribution Width SD 44.5 fl (35.1-43.9); Red Blood Count 5.22 M/mm3 (4.6-6.2); White Blood Count 6.6 K/mm3 (4.4-11.0)
[2024-03-18 07:43] LABS: Anion Gap 6 (5-15); BUN 42 mg/dL (7-18); BUN/Creat Ratio 23.6 RATIO (10-20); Calcium,Total 9.8 mg/dL (8.5-10.1); Chloride 100 mmol/L (98-107); Creatinine, Serum 1.78 mg/dL (0.70-1.30); EST Glomerular Filtration Rate 43 mL/min (>60); Est Glom Filt Rate - Afr Amer 52 mL/min (>60); Estimated Creatinine Clearance 74.85 ml/min; Glucose 107 mg/dL (74-106); Sodium Level 135 mmol/L (136-145)
[2024-03-18] MEDS: Potassium Chloride Oral Tablet 20 MEQ PO (08:12)
[2024-03-18] MEDS: Empagliflozin 25 MG Tablet PO (08:12)
[2024-03-18] MEDS: Lactobacillis Acidophilus 1 CAP PO (08:12)
[2024-03-18] MEDS: Juven (unflavored) Packet 1 PACKET PO (08:12)
[2024-03-18] MEDS: APIXABAN 5 MG TABLET PO (08:13)
[2024-03-18 08:52] VITALS: BP 111/72; PULSE 67; RESP 18; TEMP 36.8; O2SAT 98
[2024-03-18 08:57] VITALS: PULSE 70
[2024-03-18 09:05] VITALS: PULSE 70
[2024-03-18] MEDS: Metoprolol Tartrate 25 MG Tablet PO (09:05)
[2024-03-18] MEDS: Furosemide 40 MG Tablet PO (09:06)
[2024-03-18 11:20] LABS: Bedside Glucose 190 mg/dL (74-106)
--- NOTE | 2024-03-18 11:22 | PCM.DC.SUM ---
Providers Date of Admission: 03/13/24 Date of Discharge: 03/18/24 Primary Care Physician: RALPH Ca Consultations 03/13/24 20:32 Consult: Onc/Wound/light bulb replacer Routine Comment: Reason for Consult:: DFU of Left great toe with osteomyelitis. Consult: Podiatry Routine Consulting Provider: Roma Marshall Reason for Consult: DFU of Left great toe and osteomyelitis. EMERGENT Consult: No MD Notified: Yes Date Notified: 03/13/24 Time Notified: 20:11 Method of Notification: Answering Service 03/15/24 12:58 Consult: Infectious Disease Routine Consulting Provider: Sandeep Bragg Reason for Consult: R great toe OM-pt prefers no amputation EMERGENT Consult: No MD Notified: Yes Date Notified: 03/15/24 Time Notified: 12:58 Method of Notification: Text Reason For Visit: OSTEOMYELITIS LEFT FIRST TOE Diagnosis Discharge Diagnosis (1) Diabetic infection of left foot: Status: Acute Code(s): E11.628 - Type 2 diabetes mellitus with other skin complications; L08.9 - Local infection of the skin and subcutaneous tissue, unspecified (2) ARAM (acute kidney injury): Status: Acute Code(s): N17.9 - Acute kidney failure, unspecified Plan #Left great toe diabetic infection with osteomyelitis of the left great toe Left lower extremity MRI showed great toe cellulitis with plantar ulceration and underlying osteomyelitis of the medial distal phalanx with reactive narrowing edema throughout the remainder of the distal first phalanx and first proximal phalanx. S/p debridement by podiatry. Patient does not want to do cystoscopy and wants to try long-term IV antibiotics now. Currently on IV vancomycin and Zosyn. on PO tylenol, oxycodone and IV dilaudid prn for pain ID on board; antibiotics narrowed down to IV unasyn. Per ID ok for DC home on PO augmentin 875mg bid for 38 more days. #Elevated D dimer Duplex of left lower extremity was negative for any evidence of DVT. Currently on Eliquis. Will continue Eliquis. #ARAM on CKD stage IIIb: Losartan and Aldactone held as creatinine was up to 2.03. renal ultrasound done on 03/14/2024; read is pending. Cr is 1.86 today. continue holding aldactone and losartan due to hypotension also. Contacted ultrasound about renal ultrasound read still pending. #Type 2 diabetes mellitus: On Jardiance and Trulicity weekly. A1c is 6.8. Insulin sliding scale. Accu-Cheks ACHS. #Heart failure with reduced ejection fraction Not in exacerbation. Thought to be due to ischemic cardiomyopathy. Has known EF of 35% with mild biatrial dilatation and global dysfunction. Losartan held due to ARAM on CKD Aldactone also on hold. On Lasix. Will reduce lasix to 40mg daily from 40mg bid due to hypotension. On Jardiance #CAD Had cardiac cath in March 16 to rule out with patent stents in the proximal LAD and first major diagonal branch as well as circumflex artery. RCA had 70% proximal stenosis and 50% mid vessel stenosis. Plan was for medical management On metoprolol and statin. Losartan and Aldactone on hold due to ARAM on CKD Metoprolol dose cut down to 25 mg twice daily #Paroxysmal A-fib: On metoprolol. On Eliquis. Metoprolol held today due to hypotension. Will cut down dose to 25 mg twice daily from 50 mg twice daily. #COPD: Not in exacerbation. Breathing treatments bronchodilators. #Nicotine dependence: Counseled to quit. Nicotine patch 21 mg daily as needed. #Morbid obesity: BMI is 42.7. Complicates acute care, expected recovery and prognosis. DVT prophylaxis: on eliquis. DC tomorrow if low blood pressure has improved. Medications at Discharge Home Medications apixaban 5 mg tablet (Eliquis) 5 mg PO BID blood thinner 10/03/23 atorvastatin 40 mg tablet 40 mg PO QHS cholestrol #30 tabs 10/09/23 losartan 25 mg tablet 25 mg PO DAILY bp #30 tabs 10/09/23 potassium chloride 20 mEq tablet,extended release(part/cryst) 20 meq PO BIDCM k+ supplement #60 tabs 10/09/23 dulaglutide 0.75 mg/0.5 mL subcutaneous pen injector (Trulicity) mg subcut .weekly dm 03/13/24 empagliflozin 25 mg tablet (Jardiance) 25 mg PO DAILY dm 03/13/24 amoxicillin 875 mg-potassium clavulanate 125 mg tablet 1 tab PO BID 38 days #76 tabs 03/18/24 furosemide 40 mg tablet 40 mg PO DAILY #30 tabs 03/18/24 metoprolol tartrate 25 mg tablet 25 mg PO BID #60 tabs 03/18/24 Hospital Course Operations None Procedures None Summary of Care Provided Minutes Spent on Discharge: 55 Hospital Course: Patient is a 48-year-old male with a past medical history as outlined was admitted to the ED on 03/13/2024 as a transfer from [facility] for bad diabetic foot ulcer of the left first toe as well as severe redness and edema of the left lower extremity. Symptoms began about 2 weeks prior to admission when he developed a small chronic blood blister on his left great toe. This subsequently ulcerated and worsened and he had associated copious foul-smelling drainage and blackish discoloration. There was concern for developing gangrene so he went to pulmonary and hospital. X-ray done was concerning for osteomyelitis. ESR was elevated and CRP was also elevated. He was started on IV vancomycin and Zosyn due to concerns for diabetic foot ulcer with cellulitis and concern for osteomyelitis. He was transferred to [facility] for evaluation by podiatry. He was admitted and managed for diabetic foot ulcer of the left great toe with severe left lower extremity cellulitis and concern for osteomyelitis of the left great toe as well as gangrene. He was started on IV vancomycin and Zosyn and also started on p.o. Tylenol and IV morphine. Podiatry was consulted. ID was also consulted. He had debridement done by podiatry. Patient did not want to lose his toe and wanted to try long-term antibiotics first. He did have a left lower extremity MRI which showed left great toe cellulitis with plantar ulceration and underlying osteomyelitis of the medial distal phalanx with reactive marrow edema throughout the remainder of the distal first phalanx and proximal first phalanx. Hospital course was complicated by ARAM on CKD stage IIIb and his losartan and Aldactone were held. He was also getting hypotensive also hospital. There was asymptomatic hypotension to his BP meds were held. Subsequently his metoprolol was cut down to 25 mg twice daily from 50 mg twice daily and his Lasix was also reduced to 40 mg daily. Aldactone was discontinued but losartan was continued for his renal protective effect. ID reviewed patient and recommended that he could be discharged on p.o. Augmentin for 38 more days. He was discharged on 03/18/2024 and is for his primary care doctor and podiatry within 1 to 2 weeks. Patient seen and examined prior to discharge. He had no active complaints and had an uneventful night. Review of systems otherwise negative. Labs and vitals reviewed. Home medication reviewed and reconciled. Physical Exam Const alert, oriented x3, no apparent distress and well nourished; Negative for average body habitus or healthy appearing Constitutional Narrative: obese General Appearance: cooperative, comfortable, well kempt and well developed Exam Limitations: no limitations HEENT normocephalic, head/scalp atraumatic, hearing grossly normal bilaterally and moist oral mucous membranes Eyes PERRL, EOMs intact bilaterally and conjunctivae normal Eyes Narrative: No scleral icterus Neck no lymphadenopathy, supple and no JVD Neck Narrative: Neck is short and thick, trachea midline Lymph Lymphatic: no lymphadenopathy noted Resp normal respiratory effort, normal air movement, no retractions, no use of accessory muscles and clear to auscultation bilaterally Cardio regular rate, regular rhythm, S1 normal heart sound, S2 normal heart sound, no murmurs, no rub, no gallops and no clicks Cardio Narrative: Distant heart tones due to body habitus GI normal to inspection, nondistended, normoactive bowel sounds, soft to palpation, non-tender and non-distended GI Narrative: obese abdomen Extremity Extremity Narrative: left great toe wrapped in bandage. General Extremity: no tenderness to palpation of joints or extremities Skin Skin Narrative: as under extremities Neuro oriented x3, CN's II-XII intact bilaterally, moves all extremities, no focal motor deficits, no sensory deficits noted and deep tendon reflexes 2+ bilaterally Neuro Narrative: Mild decrease sensation bilateral lower extremities distally Sensorium / Orientation: awake, alert, oriented to person, oriented to place and oriented to time Speech: speech normal Motor Exam: strength 5/5 throughout and general weakness Psych thought process normal, cooperative and affect normal Appearance: appropriate Weight / BMI Weight Weight: 323 lb 3.163 oz Body Mass Index (BMI) 42.8 ABG / Lab / Microbiology Data 03/18/24 05:12 03/18/24 05:12 Laboratory: Laboratory Results - last 24 hr 03/17/24 11:42: POC Glucose 193 H 03/17/24 15:57: POC Glucose 116 H 03/17/24 21:01: POC Glucose 152 H 03/18/24 05:12: WBC 6.6, RBC 5.22, Hgb 15.2, Hct 44.4, MCV 85.1, MCH 29.1, MCHC 34.2, RDW Std Deviation 44.5 H, RDW Coeff of Darshan 14.4, Plt Count 192, MPV 8.4, Immature Gran % (Auto) 1.200 H, Neut % (Auto) 64.3, Lymph % (Auto) 23.9, [place] % (Auto) 6.5, Eos % (Auto) 3.0, Baso % (Auto) 1.1 H, Absolute Neuts (auto) 4.2, Absolute Lymphs (auto) 1.58, Nucleated RBC % 0, Sodium 135 L, Potassium 4.0, Chloride 100, Carbon Dioxide 29.0, Anion Gap 6, BUN 42 H, Creatinine 1.78 H, Estim Creat Clear Calc 74.85, Est GFR (MDRD) Af Amer 52 L, Est GFR (MDRD) Non-Af 43 L, BUN/Creatinine Ratio 23.6 H, Glucose 107 H, Calcium 9.8 03/18/24 06:48: POC Glucose 173 H 03/18/24 10:43: POC Glucose 190 H Microbiology: Microbiology 03/14/24 07:00 Wound - Left Foot Skin and Soft Tissue MRSA/MSSA (PCR - Final 03/14/24 13:35 Ulcer, Decubitus - Toe Gram Stain - Final 03/14/24 13:35 Ulcer, Decubitus - Toe Wound Culture - Final Streptococcus group C Radiography Diagnostic Testing: Radiology Impression Renal Ultrasound 03/14/24 06:24 IMPRESSION: Normal ultrasound of the kidneys. Electronically Signed: Quinton Gonzalez MD at 12:08 EDT , D/C Instructions Discharge Diet: Low fat / Low cholesterol and 1800 Calorie Control Diet Discharge Activity: Return to Normal Activity Weight Bearing Status: Weight bearing as tolerated Call your doctor if you observe: Fever of 101 or Higher, Shortness of breath, Dizziness, Swelling in the ankles and Chest pain Meaningful Use Info Meaningful Use Meaningful Use Diagnoses (Choose all that apply): None applicable Ischemic Stroke Statin Dosing Therapy Reference: STATIN DOSE THERAPY REFERENCE: * Patients > 75 years receive moderate or high dose statin therapy. * Patients 75 years or YOUNGER should receive HIGH intensity statin dose unless contraindicated. You will be required to document reason for non-treatment if statin daily dose does not meet guidelines. HIGH DOSE STATIN THERAPY DAILY Atorvastatin > than or = to 40 mg Rosuvastatin > than or = to 20 mg Amlodipine + Atorvastatin > than or = to 2.5/40 mg Ezetimibe + Simvastatin 10/80 mg Simvastatin 80mg Discharge Plan Admission Admit Date/Time: 03/13/24 20:06 Primary Reason for Your Visit: left great toe osteomeylitis Attending Provider: Micaela Blue Primary Care Provider: Jonathan Mcneil Consulting Providers: Roma Marshall; Cynthia Zuluaga; Glenna Barrios; Sandeep Bragg; Elbert Wolfe Instructions Patient Instructions: Osteomyelitis Dc Discharge Orders/Prescriptions Prescriptions: New furosemide 40 mg Tablet 40 mg PO DAILY Qty: 30 2RF metoprolol tartrate 25 mg Tablet 25 mg PO BID Qty: 60 2RF amoxicillin-pot clavulanate 875-125 mg tablet 1 tab PO BID 38 Days Qty: 76 0RF Continued Jardiance 25 mg tablet 25 mg PO DAILY Trulicity 0.75 mg/0.5 mL pen injector subcut .weekly Patient Comments: on saturday Eliquis 5 mg tablet 5 mg PO BID Patient Comments: pt states that his dad gets med from the [place] and that's how he gets his meds. pt states that md did prescribe med for him, but he cannot afford meds. atorvastatin 40 mg Tablet 40 mg PO QHS Qty: 30 0RF potassium chloride 20 mEq Tablet,Er Particles/Crystals 20 meq PO BIDCM Qty: 60 0RF losartan 25 mg Tablet 25 mg PO DAILY Qty: 30 0RF Discontinued metoprolol tartrate 50 mg tablet 50 mg PO BID Qty: 60 0RF spironolactone 25 mg Tablet 25 mg PO DAILY Qty: 30 0RF furosemide 40 mg tablet 40 mg PO BID Qty: 60 0RF Referrals / Follow Up: Roma Marshall DPM [Med Staff - Active Staff] - Within 1 Week Jonathan Mcneil, [facility] [Primary Care Provider] - Within 2 Weeks Disposition Disposition (needs filled in before D/C Order can be placed): Home, Self Care Charges/Coding Visit Charges Inpatient E&M: 40510 Disch Hosp >30min
== END 2024-03-18 12:30 | disposition home or self-care (01) | DRG 344 ==
PROVIDERS: Internal Medicine; Admitting Provider Internal Medicine; PCP Nurse Practitioner Family; Visit Provider Student in an Organized Health Care Education/Training Program
DX: E11.69 Type 2 diabetes mellitus with other specified complication (principal); M86.8X7 Other osteomyelitis, ankle and foot; N17.9 Acute kidney failure, unspecified; I13.0 Hypertensive heart and chronic kidney disease with heart failure and stage 1 through stage 4 chronic kidney disease, or unspecified chronic kidney disease; I48.20 Chronic atrial fibrillation, unspecified; L03.116 Cellulitis of left lower limb; E11.621 Type 2 diabetes mellitus with foot ulcer; E11.42 Type 2 diabetes mellitus with diabetic polyneuropathy; I50.22 Chronic systolic (congestive) heart failure; E11.22 Type 2 diabetes mellitus with diabetic chronic kidney disease; Z68.41 Body mass index [BMI] 40.0-44.9, adult; J44.9 Chronic obstructive pulmonary disease, unspecified; N18.32 Chronic kidney disease, stage 3b; L97.529 Non-pressure chronic ulcer of other part of left foot with unspecified severity; I25.82 Chronic total occlusion of coronary artery; F17.210 Nicotine dependence, cigarettes, uncomplicated; E78.5 Hyperlipidemia, unspecified; E11.65 Type 2 diabetes mellitus with hyperglycemia; E66.01 Morbid (severe) obesity due to excess calories; I25.10 Atherosclerotic heart disease of native coronary artery without angina pectoris; I25.5 Ischemic cardiomyopathy; I48.0 Paroxysmal atrial fibrillation; Z79.01 Long term (current) use of anticoagulants; Z95.5 Presence of coronary angioplasty implant and graft; Z79.85 Long-term (current) use of injectable non-insulin antidiabetic drugs
CPT/HCPCS: 36415; 73718; 76770; 80048; 80053; 80202; 81001; 82570; 82962; 83036; 83735; 83880; 84100; 84300; 84443; 84540; 85025; 85379; 87070; 87077; 87205; 87640; 93970; 94668; 97802; J7030; J7040; J7050; A4216; J0295